=== PATIENT | male | born 1935 | race Caucasian/White ===

== ENCOUNTER 2020-06-06 09:47 | Outpatient (CLI) | payer MEDICARE, SELFPAY ==
--- NOTE | ~2020-06-06 | XR_ITS ---
XR chest 2V DATE: 06/06/2020 10:10 INDICATION: Fatigue TECHNIQUE: PA and lateral views COMPARISON: 09/16/2018 PA and lateral chest FINDINGS: Normal heart size. Aortic calcification. Mild to moderate hiatal hernia. No pulmonary infiltrate or consolidation, pleural effusion or pulmonary vascular congestion or pneumo thorax. Bilateral glenohumeral osteoarthritis. IMPRESSION: No active cardiopulmonary disease Reviewed, dictated and finalized at location A. 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
== END 2020-06-06 09:48 | disposition home or self-care (01) ==
PROVIDERS: PCP Internal Medicine; Visit Provider Internal Medicine
DX: R53.83 Other fatigue (principal); M19.012 Primary osteoarthritis, left shoulder; M19.011 Primary osteoarthritis, right shoulder
CPT/HCPCS: 71046

== ENCOUNTER 2020-07-14 10:48 | Outpatient (CLI) | payer MEDICARE, SELFPAY ==
--- NOTE | ~2020-07-14 | NM_ITS ---
EXAMINATION: NM lizzy stress w perfusion DATE: 07/14/2020 13:40 INDICATION: Presyncope. Fatigue. TECHNIQUE: Rest images were obtained following intravenous administration of 8.2 mCi Tc99m tetrofosmi n (Myoview). The patient was infused intravenously with Lexiscan (regadenoson). Then, 26.2 mCi Tc99m tetrofosmin (Myoview) was administered intravenously, and stress images were obtained. Data was recon structed into short axis and horizontal and vertical long axis SPECT images. Gated SPECT images were also obtained. COMPARISON: None. FINDINGS: There is no definite reversible or fixed perfusion abnormality to suggest ischemia or infar ction. There is no segmental wall motion abnormality. Left ventricular ejection fraction measures 6 8%. IMPRESSION: 1. No definite ischemia or infarct. 2. Normal left ventricular ejection fraction measuring 68%. Reviewed, dictated and finalized at location B. 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
--- NOTE | 2020-07-14 11:06 | EST_ITS ---
Patient Info Name: Naeem Pitt Age: 85 years : 1935 Gender: Male Ht: 70 in Wt: 200 lbs BSA: 2.14 m2 Exam Date: 07/14/2020 11:54 AM Exam Location: [facility] Stress Patient Status: Outpatient Admit Date: 07/14/2020 Staff Ordering Physician: John Sparks DO Attending Provider: John Sparks DO Exercise Technologist: Anila Coughlin RDCS Exercise Physician: Pito Varela DO Exam Type: CA stress lizzy w NM Study Info Indications R53.83 - Other fatigue A regadenoson stress test was performed. Summary 1. 1. Negative lexiscan stress test for ischemic ST changes by ECG criteria. 2. 2. Baseline hypertension. 3. 3. Nuclear scan to follow and will be reported separately. Please correlate with it. 4. 4. Patient informed of the above results. Protocol: Lexiscan Stress ECG Details Stage: REST Duration (min): 5 min : 52 sec HR (bpm): 70 SBP (mmHg): 176 DBP (mmHg): 91 Stage: REST Duration (min): 7 min : 13 sec HR (bpm): 70 SBP (mmHg): 176 DBP (mmHg): 91 Stage: STAGE 1 Duration (min): 1 min : 0 sec HR (bpm): 93 SBP (mmHg): 178 DBP (mmHg): 89 Stage: RECOVERY Duration (min): 1 min : 0 sec HR (bpm): 109 SBP (mmHg): 143 DBP (mmHg): 82 Stage: RECOVERY Duration (min): 2 min : 0 sec HR (bpm): 105 SBP (mmHg): 143 DBP (mmHg): 82 Stage: RECOVERY Duration (min): 3 min : 0 sec HR (bpm): 103 SBP (mmHg): 148 DBP (mmHg): 84 Stage: RECOVERY Duration (min): 4 min : 0 sec HR (bpm): 99 SBP (mmHg): 148 DBP (mmHg): 84 Stage: RECOVERY Duration (min): 5 min : 0 sec HR (bpm): 101 SBP (mmHg): 154 DBP (mmHg): 85 Stage: RECOVERY Duration (min): 6 min : 0 sec HR (bpm): 104 SBP (mmHg): 154 DBP (mmHg): 85 Stage: RECOVERY Duration (min): 7 min : 0 sec HR (bpm): 101 SBP (mmHg): 148 DBP (mmHg): 86 Stage: RECOVERY Duration (min): 8 min : 0 sec HR (bpm): 99 SBP (mmHg): 148 DBP (mmHg): 86 Stage: RECOVERY Duration (min): 9 min : 0 sec HR (bpm): 94 SBP (mmHg): 166 DBP (mmHg): 85 Stage: RECOVERY Duration (min): 9 min : 9 sec HR (bpm): 94 SBP (mmHg): 166 DBP (mmHg): 85 Rest HR: 70 bpm Peak HR: 109 bpm Rest Sys BP: 176 mmHg Peak Sys BP: 178 mmHg Max Pred HR: 137 bpm % Max Pred HR: 80 % Target HR: 116 bpm Max RPP: 19,402 bpm*mmHg Termination Reason: Completed protocol Cardiac Symptoms: Stomach discomfort, dizziness Total Time: 1 min : 0 sec Rest Paredes BP: 91 mmHg Peak Paredes BP: 89 mmHg Total Dose: 0.4 mg Resting ECG Sinus rhythm, early precordial R/S transition. Stress ECG No ST changes. Arrhythmias None. Report Signatures
== END 2020-07-14 10:49 | disposition home or self-care (01) ==
PROVIDERS: PCP Internal Medicine; Visit Provider Internal Medicine
DX: I25.10 Atherosclerotic heart disease of native coronary artery without angina pectoris (principal); R53.83 Other fatigue; E11.9 Type 2 diabetes mellitus without complications
CPT/HCPCS: 78452; 93017; A9502; J2785

== ENCOUNTER 2020-07-18 12:57 | Outpatient (CLI) | payer MEDICARE, SELFPAY ==
--- NOTE | ~2020-07-18 | XR_ITS ---
EXAMINATION: XR wrist RT min 3V DATE: 07/18/2020 13:16 INDICATION: Right wrist osteoarthritis and pain. TECHNIQUE: 4 views of right wrist were obtained. COMPARISON: None. FINDINGS: Bone alignment is normal. No fracture. There is severe osteoarthritis of radioscaphoid join t and lunate-capitate joint. 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 There is mild oste oarthritis of triscaphe joint and severe osteoarthritis of first carpometacarpal joint. There is mild osteoarthritis of first metacarpophalangeal joint and moderate osteoarthritis of second and third me tacarpophalangeal joints. 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 IMPRESSION: 1. Polyarticular osteoarthritis. Reviewed, dictated and finalized at location B. SAW FILER
== END 2020-07-18 12:58 | disposition home or self-care (01) ==
PROVIDERS: PCP Internal Medicine; Visit Provider Plastic Surgery
DX: M19.031 Primary osteoarthritis, right wrist (principal)
CPT/HCPCS: 73110

== ENCOUNTER 2020-08-07 09:28 | Outpatient (CLI) | payer MEDICARE, SELFPAY ==
[2020-08-07 10:26] LABS: Anion Gap 8 mmol/L (8-16); Blood Urea Nitrogen 24 mg/dL (9-20); Calcium 6.3 mg/dL (8.4-10.2); Carbon Dioxide 29 mmol/L (22-30); Chloride 103 mmol/L (98-107); Estimated Glomerular Filt Rate > 60; Glucose 117 mg/dL (75-110); Potassium 4.3 mmol/L (3.4-5.0); Sodium 140 mmol/L (137-145)
== END 2020-08-07 09:29 | disposition home or self-care (01) ==
PROVIDERS: Anesthesiology; PCP Internal Medicine; Visit Provider Plastic Surgery
DX: Z01.812 Encounter for preprocedural laboratory examination (principal); E11.9 Type 2 diabetes mellitus without complications
CPT/HCPCS: 36415; 80048

== ENCOUNTER → 2020-08-09 01:01 | Outpatient (CLI) | payer MEDICARE, SELFPAY ==
[2020-08-09 19:48] LABS: SARS-CoV-2 RNA PCR Negative
== END ==
PROVIDERS: PCP Internal Medicine; Visit Provider Plastic Surgery
DX: Z01.812 Encounter for preprocedural laboratory examination (principal); Z20.822 Contact with and (suspected) exposure to COVID-19
CPT/HCPCS: C9803; U0003; U0005

== ENCOUNTER 2020-08-13 00:58 | Day surgery (SDC) | payer MEDICARE, SELFPAY ==
[2020-08-06 10:23] VITALS: BMI 28.7
[2020-08-13 06:08] VITALS: BP 174/79; PULSE 83; RESP 18; TEMP 36.2; O2SAT 99
[2020-08-13] MEDS: LACTATED RINGERS 1,000 ML 30 ML IV CONT (06:25)
[2020-08-13 06:27] LABS: Glucose Point of Care 128 (65-105)
--- NOTE | 2020-08-13 07:05 | WPDANESEPPF ---
Anes - Initial Pre Proc Eval Procedure: Operation Date: 08/13/20 07:30 Proposed Procedures p Right Open Carpal Tunnel Release - Andriy Mooney MD Date/Time: 08/13/20 07:05 Surgeon: Andriy Mooney MD Pre Op Diagnosis: Carpal Tunnel Syndrome Patient Data Age: 85 Gender: M Height: 5 ft 10 in Weight: 91.7 kg Last Vital Signs Temp 97.2 F L 08/13/20 06:08 Pulse 83 08/13/20 06:08 Resp 18 08/13/20 06:08 BP 174/79 H 08/13/20 06:08 Pulse Ox 99 08/13/20 06:08 Allergies Allergy/AdvReac Type Severity Reaction Status Date / Time No Known Allergies Allergy Verified 08/13/20 06:30 Home Medications Medication Instructions Recorded Confirmed Type vitamin E 200 unit capsule 400 unit PO DAILY 06/07/19 08/13/20 History blood sugar diagnostic #100 each 07/17/19 08/13/20 Rx lancets 33 gauge #100 each 01/03/20 08/13/20 Rx aspirin 81 mg PO BID 08/06/20 08/13/20 History atenolol 50 mg QAM 08/06/20 08/13/20 History atorvastatin 20 mg QAM 08/06/20 08/13/20 History calcium carbonate 500 mg PO QAM 08/06/20 08/13/20 History cholecalciferol (vitamin D3) 50 mcg PO QAM 08/06/20 08/13/20 History cyanocobalamin (vitamin B-12) 1,000 mcg PO QAM 08/06/20 08/13/20 History finasteride 5 mg QAM 08/06/20 08/13/20 History hydrochlorothiazide 12.5 mg PO QAM 08/06/20 08/13/20 History losartan 100 mg QAM 08/06/20 08/13/20 History metformin 500 mg PO QAM 08/06/20 08/13/20 History omeprazole 20 mg PO QAM 08/06/20 08/13/20 History Laboratory Tests 08/13/20 06:23 POC Capillary Glucose 128 mg/dl H mg/dl (65-105) Patient hx anesthesia problems: none Family hx anesthesia problems: none PMFSH Past Medical History Medical History Abnormal urine Acute cerebrovascular accident Bilateral kidney stones Halitosis Head injury due to trauma Hypocalcemia Impacted cerumen, bilateral Other fatigue Skin cancer Social History Social History Smoking status: Never smoker Second hand tobacco smoke exposure: No Alcohol intake: never Substance use: never Substance use type: does not use Living arrangements: with family Spiritual care concerns: No Anes - Eval Final PreProcedure Day of Procedure 08/13/20 07:05 Patient weight: overweight Heart: regular rate and rhythm Lungs: clear to auscultation Airway: Mallampati scale class III Neurological: alert and oriented Last oral intake: >/= 8 hours ASA classification: III Emergent: no Anesthetic plan: proceed Anesthesia type and monitoring: general GIVS and standard monitoring Informed Consent: The patient's anesthetic plan and its attendant risks and benefits were discussed with the patient/family/POA. Questions were solicited and answers provided to the satisfaction of the patient/family/POA.
--- NOTE | 2020-08-13 07:15 | WPDHPUPDATE1 ---
History and Physical Update Update Date/Time: 08/13/20 07:15 History and Physical has been reviewed, including an updated exam of the patient. There are NO changes in the patient's condition. Risks, benefits, and alternatives have been discussed and questions answered. Patient agrees to proceed with procedure.
--- NOTE | 2020-08-13 07:34 | PM.OP ---
Procedure Note - Brief Procedure Note - Brief Date of procedure: 08/13/20 Pre-op diagnosis: Carpal Tunnel Syndrome Post-op diagnosis: same Procedure performed: R OCTR Anesthesia: MAC Surgeon: Andriy Mooney MD Estimated blood loss (mL): 1 Tourniquet time (min): 6 Drains: No Packing: No Pathology: none sent Complications: No immediate complications Condition: stable Disposition: same day
[2020-08-13] MEDS: LIDO 1%/EPINEPHRINE 1:100,000 50 ML VIAL INFILTRATE (07:54)
[2020-08-13 08:00] VITALS: BP 144/68; PULSE 77; RESP 14; O2SAT 100
[2020-08-13 08:04] LABS: Glucose Point of Care 117 (65-105)
--- NOTE | 2020-08-13 08:09 | P.OP_ITS ---
Procedure Note - Detailed Date of procedure: 08/13/20 Pre-op diagnosis: Carpal Tunnel Syndrome Post-op diagnosis: same Procedure performed: Right open carpal tunnel release Description of procedure: The carpal tunnel at the right wrist was marked as the patient waited in the holding area. He was taken to the operating room and placed supine on the operating table. A time-out was held and confirmed. He was given IV sedation and the extremity was prepped and draped in the usual fashion. The marking was reconfirmed and the site locally infiltrated with 1% lidocaine with epinephrine. The tourniquet was inflated to 250 mmHg. The incis ion was made as marked and dissection was carried bluntly through the subcutaneous tissue to the palmar fascia. This and the carpal ligament were incised with a 15. Bard-Aleksandr blade. The Ragnell was retractor was inserted and under 3 point retraction the ligament was divided distally and proximally with scissors. No unusual anatomy was noted. The skin wound was closed with interrupted 4-0 nylon suture. The usual bandage was applied. The tourniquet was released at 6 minutes and the patient was transported to outpatient recovery in stable condition. Anesthesia: MAC Surgeon: Andriy Mooney MD Estimated blood loss (mL): 1 Tourniquet time (min): 6 Drains: No Packing: No Pathology: none sent Complications: No immediate complications Condition: stable Disposition: same day
[2020-08-13 08:30] VITALS: BP 141/64; PULSE 77; RESP 16; O2SAT 100
[2020-08-13 08:56] VITALS: BP 156/71; PULSE 68; RESP 14; O2SAT 100
== END 2020-08-13 09:05 | disposition home or self-care (01) ==
PROVIDERS: PCP Internal Medicine; Visit Provider Plastic Surgery
PROC: (CPT 64721; principal; 2020-08-13 07:30)
DX: G56.01 Carpal tunnel syndrome, right upper limb (principal); I10 Essential (primary) hypertension; E11.9 Type 2 diabetes mellitus without complications; Z79.82 Long term (current) use of aspirin; Z79.84 Long term (current) use of oral hypoglycemic drugs
CPT/HCPCS: 64721; 36415; 80048; 82948; A9270; C9803; J2405; J2704; J7120; U0003; U0005

== ENCOUNTER → 2021-01-20 08:21 | Outpatient (CLI) | payer MEDICARE, SELFPAY ==
[2021-01-20 20:36] LABS: SARS-CoV-2 RNA PCR Negative
== END ==
PROVIDERS: PCP Internal Medicine; Visit Provider Internal Medicine
DX: Z20.822 Contact with and (suspected) exposure to COVID-19 (principal); R09.89 Other specified symptoms and signs involving the circulatory and respiratory systems
CPT/HCPCS: C9803; U0003; U0005

== ENCOUNTER 2022-02-05 10:24 | Emergency (ER) | payer MEDICARE, SELFPAY ==
--- NOTE | ~2022-02-05 | XR_ITS ---
EXAMINATION: [id number] DATE: 02/05/2022 10:47 INDICATION: Rib pain. Fall. TECHNIQUE: A frontal view of the chest and 2 views on 3 radiographs of the left ribs were obtained. COMPARISON: Chest 2 views 06/06/2020 FINDINGS: The chest demonstrates clear lungs without pneumonia, pleural effusion, or pneumothorax. Th e heart size is normal. There are multiple old healed left rib fractures. There are acute fractures o f left eighth-10th ribs. IMPRESSION: 1. Acute fractures of left eighth-10th ribs. Reviewed, dictated and finalized at location A.
--- NOTE | 2022-02-05 10:29 | ED.FALL ---
HPI - Fall General Chief Complaint: Chest Pain Stated Complaint: left side rib, fall Time Seen by Provider: 02/05/22 10:29 Source: patient Mode of arrival: ambulatory Limitations: no limitations History of Present Illness HPI Narrative: Mr. Pitt is an 86 year old male patient presenting to the clinic today with c/o left rib pain after falling last night. He reports his waredresser went down a hill into the so and got caught in a black bear josé. He attempted to get it out and fell onto the left posterior ribs. Has bruising and abrasion to the posterior left ribs. Has increase in pain when taking a deep breath. He denies any anterior chest pain or shortness of breath. Related Data Home Medications Medication Instructions Recorded Confirmed vitamin E 200 unit capsule 400 unit PO DAILY 06/07/19 02/05/22 aspirin 81 mg tablet,delayed 81 mg PO BID 08/06/20 02/05/22 release cholecalciferol (vitamin D3) 50 50 mcg PO QAM 08/06/20 02/05/22 mcg (2,000 unit) capsule cyanocobalamin (vitamin B-12) 1,000 mcg PO QAM 08/06/20 02/05/22 1,000 mcg capsule atenolol 50 mg tablet 50 mg PO QAM 02/05/22 02/05/22 Allergies Allergy/AdvReac Type Severity Reaction Status Date / Time No Known Allergies Allergy Verified 02/05/22 10:34 Review of Systems Review of Systems: Pertinent positives per HPI. Patient denies any fever, chills, rash, headache, visual changes, dizziness, cough, runny nose, sore throat, shortness of breath, chest pain, palpitations, nausea, vomiting, diarrhea, constipation, abdominal pain, or any urinary issues. [facility] Past Medical History Medical History Abnormal urine Acute cerebrovascular accident Bilateral kidney stones Halitosis Head injury due to trauma Hypocalcemia Impacted cerumen, bilateral Other fatigue Skin cancer Social History Social History Smoking status: Former smoker Second hand tobacco smoke exposure: No Alcohol intake: never Substance use: never Substance use type: does not use Spiritual care concerns: No Comments At the time of my signature, I reviewed and agree with the nursing past medical, surgical, social, and family history. There is no relevant family history pertinent to the patient complaint. Exam Narrative: General: Well-developed, well nourished, in no apparent distress Head: Normocephalic, atraumatic Eyes: Pupils equally round and reactive to light bilaterally, EOM intact, sclera and conjunctive clear, no discharge, lids normal Ears: TMs intact and clear, ear canals clear, no drainage, grossly hearing normal. Nose: Nares patent, no discharge, no inflammation, no sinus tenderness. Mouth: Oropharynx without lesions or masses, good dentition, MMM. Neck: Supple, trachea midline, no enlargement of anterior or posterior cervical nodes, no thyroid masses or goiter palpable. Cardio: Regular rate and rhythm, s1 and s2 normal, no murmur appreciated. Resp: Clear to auscultation bilaterally anteriorly and posteriorly, no rhonchi, rales, wheezing or rubs Course Course Emergency Course: Portions of this record may have been created with voice recognition software. Level of Care: Express Care Visit Vital Signs Vital signs: Vital signs reviewed MDM - Fall MDM Narrative Medical decision making narrative: At the time of visit patient is resting comfortably on the exam table. X-ray was performed and patient has fractures to the eighth ninth and 10th rib on the left side. Toradol 30 mg IM given in the clinic for pain and Boostrix was given due to the scratches and abrasions from the blackberry bushes. Supportive measures were discussed with the patient he voiced understanding of discharge instructions and agrees to treatment plan. Differential Diagnosis Differential diagnosis: Likely other (Rib fracture, rib contusion, abrasions, superficial
[2022-02-05 10:36] VITALS: BP 152/69; PULSE 81; RESP 16; TEMP 36.6; O2SAT 99
[2022-02-05] MEDS: TETANUS,DIPHTHERIA,AC PERTUSSIS ADULT (0.5 ML) BOOSTRIX IM (11:10)
[2022-02-05] MEDS: KETOROLAC 30 MG/ML VIAL (*BKC) IM (11:17)
== END 2022-02-05 11:10 | disposition home or self-care (01) ==
PROVIDERS: Emergency Provider Nurse Practitioner Family; PCP Internal Medicine
DX: S22.42XA Multiple fractures of ribs, left side, initial encounter for closed fracture (principal); W19.XXXA Unspecified fall, initial encounter; Z23 Encounter for immunization; S20.412A Abrasion of left back wall of thorax, initial encounter; Z87.891 Personal history of nicotine dependence; Z86.73 Personal history of transient ischemic attack (TIA), and cerebral infarction without residual deficits; Z85.828 Personal history of other malignant neoplasm of skin; Z79.82 Long term (current) use of aspirin
CPT/HCPCS: 71101; 90471; 90715; 96372; 99213; G0463; J1885

== ENCOUNTER 2023-03-15 03:59 | Day surgery (SDC) | payer MEDICARE, SELFPAY ==
[2023-03-04 14:59] VITALS: BMI 26.5
[2023-03-15 08:34] VITALS: BP 169/89; PULSE 77; RESP 18; TEMP 35.8; O2SAT 96; BMI 27.4
[2023-03-15] MEDS: LACTATED RINGERS 1,000 ML 150 ML IV CONT (09:05)
[2023-03-15 09:06] LABS: Glucose Point of Care 111 mg/dl (65-105)
--- NOTE | 2023-03-15 09:18 | PM.HPGS ---
History of Present Illness History of Present Illness Consent: Risks, benefits, and alternatives have been discussed and questions answered. Patient agrees to proceed with procedure. Chief complaint: hx colon polyps Narrative: Naeem Pitt is a 88 year old male Presents for screening colonoscopy. Patient's current weight appetite and bowel movements are normal. Patient denies abdominal pain. He has had no bleeding. Family history is significant that his father had colon cancer. Patient reports he has had multiple colonoscopies and typically polyps have been identified every time for the last 20 years. Review of Systems Review of Systems: Review of systems noncontributory. [facility] Past Medical History Medical History (Updated 11/01/22 @ 10:05 by Tono Campbell PA-C) Abnormal urine Acute cerebrovascular accident Bilateral kidney stones Halitosis Head injury due to trauma History of adenomatous polyp of colon Hypocalcemia Impacted cerumen, bilateral Other fatigue Ribs, multiple fractures Skin cancer Social History Social History Smoking status: Never smoker Second hand tobacco smoke exposure: No Alcohol intake: current Substance use: never Substance use type: does not use Lack of Transportation: No Lack of Food: Never True Current Housing: I Have Housing Concerned About Future Housing: No Difficulty Paying Gas/Electric Bills: No Difficulty Paying for Meds: No Currently Unemployed: No Education: High School Diploma/GED Difficulty w/ Childcare or Family Care: No Living arrangements: with family Spiritual care concerns: No Meds Home Medications and Allergies Home Medications Medication Instructions Recorded Confirmed Type aspirin 81 mg tablet,delayed 81 mg PO BID 08/06/20 03/15/23 History release cholecalciferol (vitamin D3) 50 50 mcg PO QAM 08/06/20 03/15/23 History mcg (2,000 unit) capsule finasteride 5 mg tablet 5 mg PO QAM #90 tabs 11/16/21 03/15/23 Rx blood sugar diagnostic See Rx Instructions .Route 04/06/22 03/15/23 Rx .COMPLEX #100 strips blood sugar diagnostic (OneTouch #100 ea 09/03/22 03/15/23 Rx Ultra Test strips) losartan 100 mg tablet 100 mg PO QAM #90 tabs 11/29/22 03/15/23 Rx hydrochlorothiazide 12.5 mg tablet See Rx Instructions .Route 12/05/22 03/15/23 Rx .COMPLEX #90 tabs lancets 33 gauge (OneTouch Delica See Rx Instructions .Route 12/11/22 03/15/23 Rx Plus Lancet) .COMPLEX #100 ea atorvastatin 20 mg tablet See Rx Instructions .Route 01/10/23 03/15/23 Rx .COMPLEX #90 tabs atenolol 50 mg tablet 50 mg PO QAM #90 tabs 01/17/23 03/15/23 Rx omeprazole 20 mg capsule,delayed 20 mg PO QAM #90 caps 01/24/23 03/15/23 Rx release metformin 500 mg tablet 500 mg PO DAILY #90 tabs 02/28/23 03/15/23 Rx mecobalamin (vitamin B12) 500 mcg 500 mcg PO DAILY 03/04/23 03/15/23 History chewable tablet vitamin E 180 mg PO DAILY 03/04/23 03/15/23 History Allergies Allergy/AdvReac Type Severity Reaction Status Date / Time No Known Allergies Allergy Verified 03/15/23 08:44 Vital Signs Vital Signs - 24 hr 03/15/23 08:34 Temperature 96.5 F L Pulse Rate 77 Respiratory Rate 18 Blood Pressure 169/89 H Pulse Oximetry 96 Oxygen Delivery Room Air Exam Narrative: Physical exam reveals patient to be alert. Vital signs stable. HEENT exam is unremarkable. Patient is anicteric. Lungs are clear to auscultation and percussion. Heart is without murmur or extra sounds. Abdomen bowel sounds are present soft nontender with no organomegaly. Digital external rectal exam normal. Assessment and Plan Assessment and plan (1) History of adenomatous polyp of colon: Code(s): Z86.010 - Personal history of colonic polyps Status: Acute Assessment and Plan: Patient has a personal history of adenomatous colon polyps on multiple previous colonoscopies.
--- NOTE | 2023-03-15 09:36 | WPDANESEPPF ---
Anes - Initial Pre Proc Eval Procedure: Operation Date: 03/15/23 10:00 Proposed Procedures p Colonoscopy - Je Smith MD Date/Time: 03/15/23 09:36 Surgeon: Je Smith MD Pre Op Diagnosis: hx colon polyps Patient Data Age: 88 Gender: M Height: 1.78 m Weight: 86.7 kg Last Vital Signs Temp 96.5 F L 03/15/23 08:34 Pulse 77 03/15/23 08:34 Resp 18 03/15/23 08:34 BP 169/89 H 03/15/23 08:34 Pulse Ox 96 03/15/23 08:34 O2 Del Method Room Air 03/15/23 08:34 Allergies Allergy/AdvReac Type Severity Reaction Status Date / Time No Known Allergies Allergy Verified 03/15/23 08:44 Home Medications Medication Instructions Recorded Confirmed Type aspirin 81 mg tablet,delayed 81 mg PO BID 08/06/20 03/15/23 History release cholecalciferol (vitamin D3) 50 50 mcg PO QAM 08/06/20 03/15/23 History mcg (2,000 unit) capsule finasteride 5 mg tablet 5 mg PO QAM #90 tabs 11/16/21 03/15/23 Rx blood sugar diagnostic See Rx Instructions .Route 04/06/22 03/15/23 Rx .COMPLEX #100 strips blood sugar diagnostic (OneTouch #100 ea 09/03/22 03/15/23 Rx Ultra Test strips) losartan 100 mg tablet 100 mg PO QAM #90 tabs 11/29/22 03/15/23 Rx hydrochlorothiazide 12.5 mg tablet See Rx Instructions .Route 12/05/22 03/15/23 Rx .COMPLEX #90 tabs lancets 33 gauge (OneTouch Delica See Rx Instructions .Route 12/11/22 03/15/23 Rx Plus Lancet) .COMPLEX #100 ea atorvastatin 20 mg tablet See Rx Instructions .Route 01/10/23 03/15/23 Rx .COMPLEX #90 tabs atenolol 50 mg tablet 50 mg PO QAM #90 tabs 01/17/23 03/15/23 Rx omeprazole 20 mg capsule,delayed 20 mg PO QAM #90 caps 01/24/23 03/15/23 Rx release metformin 500 mg tablet 500 mg PO DAILY #90 tabs 02/28/23 03/15/23 Rx mecobalamin (vitamin B12) 500 mcg 500 mcg PO DAILY 03/04/23 03/15/23 History chewable tablet vitamin E 180 mg PO DAILY 03/04/23 03/15/23 History Laboratory Tests 03/15/23 09:03 POC Capillary Glucose 111 H mg/dl (65-105) Patient hx anesthesia problems: none Family hx anesthesia problems: none Results Review: All pre-operative results and documents have been reviewed as part of the pre-operative evaluation. [facility] Past Medical History Medical History (Updated 11/01/22 @ 10:05 by Tono Campbell PA-C) Abnormal urine Acute cerebrovascular accident Bilateral kidney stones Halitosis Head injury due to trauma History of adenomatous polyp of colon Hypocalcemia Impacted cerumen, bilateral Other fatigue Ribs, multiple fractures Skin cancer Social History Social History Smoking status: Never smoker Second hand tobacco smoke exposure: No Alcohol intake: current Substance use: never Substance use type: does not use Lack of Transportation: No Lack of Food: Never True Current Housing: I Have Housing Concerned About Future Housing: No Difficulty Paying Gas/Electric Bills: No Difficulty Paying for Meds: No Currently Unemployed: No Education: High School Diploma/GED Difficulty w/ Childcare or Family Care: No Living arrangements: with family Spiritual care concerns: No Anes - Eval Final PreProcedure Day of Procedure 03/15/23 09:36 Patient weight: normal Heart: regular rate and rhythm Lungs: clear to auscultation Airway: Mallampati scale class II Neurological: alert and oriented Last oral intake: >/= 8 hours ASA classification: III Emergent: no Anesthetic plan: proceed Anesthesia type and monitoring: general GIVS and standard monitoring Results Review: All pre-operative results and documents have been reviewed as part of the pre-operative evaluation. Informed Consent: The patient's anesthetic plan and its attendant risks and benefits were discussed with the patient/family/POA. Questions were solicited and answers provided to the satisfaction of the patient/family/POA.
[2023-03-15] MEDS: SIMETHICONE ORAL SUSPENSION 20 MG/0.3 ML 30 ML BOTTLE 0.6 ML IRRIGATION (10:06)
[2023-03-15 10:49] VITALS: BP 122/60; PULSE 65; RESP 16; O2SAT 97
[2023-03-15 10:59] VITALS: BP 130/67; PULSE 63; RESP 16; O2SAT 96
[2023-03-15 11:09] VITALS: BP 152/99; PULSE 62; RESP 15; O2SAT 96
--- NOTE | 2023-03-15 11:32 | SUR.PHASEII ---
Discharge delayed due to patient being slow to wake up. Patient wanted to wait to talk to Dr. Smith a second time.
== END 2023-03-15 11:41 | disposition home or self-care (01) ==
PROVIDERS: PCP Physician Assistant; Visit Provider Internal Medicine Gastroenterology
PROC: 0DJD8ZZ Inspection of Lower Intestinal Tract, Via Natural or Artificial Opening Endoscopic (ICD-10-PCS; CPT 45378; principal; 2023-03-15 10:00)
DX: Z12.11 Encounter for screening for malignant neoplasm of colon (principal); D12.2 Benign neoplasm of ascending colon; Z80.0 Family history of malignant neoplasm of digestive organs; Z79.82 Long term (current) use of aspirin; Z79.84 Long term (current) use of oral hypoglycemic drugs; Z86.73 Personal history of transient ischemic attack (TIA), and cerebral infarction without residual deficits
CPT/HCPCS: 45385; 82948; 88305; J2704; J7120

== ENCOUNTER 2023-06-01 08:15 | Outpatient (RCR) | payer MEDICARE, SELFPAY ==
--- NOTE | 2023-05-06 13:36 | OTOPEVAL1 ---
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 Has been having pain that has been getting bad enough that he sought treatment. He has been getting a cortisone injection 1 time a year for the last 4 years. He recently had an injection 2 days ago. Reported Pain Level Pain Score 2: Self Report Assessment OT Clinical Summary Patient referred to OT with right wrist pain and dx of OA 1st CMC joint. Patient presents with severe wrist stiffness actively and passively, overall gross weakness with alum mixer and pinching, as well as pain with use. Skilled OT indicated for HEP instruction, modalities, therapeutic activities and exercise, as well as education on joint protection and adaptive equipment to facilitate optimal functional use of the right UE. Plan of Care Interventions Therapeutic Exercise,Manual Therapy,Therapeutic Activities,Hot Pack/Cold Pack,Ultrasound,Paraffin OT Services Indicated Yes Treatment Frequency and 1x/week for 4 weeks Duration These treatments will address the objective and functional deficits as defined above. The patient will be advanced safely and appropriately in order for the patient to progress towards his/her prior level of function. Additional exercises will be introduced and as well as a comprehensive home exercise program upon discharge, if needed, ?to ensure carryover of functional gains achieved in the clinic. This treatment plan has been reviewed and agreement upon by the patient.
--- NOTE | 2023-05-06 13:37 | OPREHPOC ---
Outpatient Therapy Plan of Care This is a Multidisciplinary Plan of Care that may contain components documented by all disciplines (PT, OT, and ST.) OT Problem 1 OT Problem #1 Knowledge Deficit OT Goal 1 Goal 1. Patient to be independent with instructed materials. Target Visit 5 OT Problem 2 OT Problem #2 Pain OT Goal 1 Goal 1. Patient to report reduced right wrist pain with use, reporting 2/10 pain or less with ADLs. Target Visit 5 OT Problem 3 OT Problem #3 Impaired Strength OT Goal 1 Goal 1. 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 Target Visit 5 OT Problem 4 OT Problem #4 Impaired Flexibility OT Goal 1 Goal 1. Increase active ROM of the right wrist: - flexion to 20 deg. - extension to 30 deg. - RD to 5 deg. - UD to 15 deg. Target Visit 5
--- NOTE | 2023-06-01 09:05 | OTOPDC ---
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 He reports that therapy has helped him improved flexibility of the thumb. He reports he hasn't taken any Tylenol or used Voltaren for 2-3 weeks. He states he is now able to buckle his seat belt without pain. Reported Pain Level Pain Score 1: Self Report Additional Pain Score Comments Patient reports pain does get down to 0/10 at times. At worst his pain has been in the last week: 3/10. At the start of care his pain was regularly getting up to 8/10. Assessment OT Clinical Summary Patient referred to OT with right wrist pain and dx of OA 1st CMC joint. OT has focused on utilizing thermal modalities, manual therapy, and light strengthening. He has made excellent progress with improved flexibility, improved strength, and reduced pain with ADLs. He is currently independent with HEP and in agreement with discharge. OT Services Indicated No, D/C
== END 2023-06-01 10:34 | disposition home or self-care (01) ==
LOC: ANHOT 08:15
PROVIDERS: PCP Physician Assistant; Visit Provider Plastic Surgery
DX: M18.11 Unilateral primary osteoarthritis of first carpometacarpal joint, right hand (principal)
CPT/HCPCS: 97018; 97110; 97140; 97165

== ENCOUNTER 2023-10-24 03:00 | Day surgery (SDC) | payer MEDICARE, SELFPAY ==
[2023-10-07 15:18] VITALS: BMI 26.2
[2023-10-24 11:33] LABS: Glucose Point of Care 113 mg/dl (65-105)
[2023-10-24 11:46] VITALS: BP 175/65; PULSE 63; RESP 18; TEMP 36.2; O2SAT 100
[2023-10-24] MEDS: LACTATED RINGERS 1,000 ML 150 ML IV CONT (12:05)
--- NOTE | 2023-10-24 12:39 | WPDANESEPPF ---
Anes - Initial Pre Proc Eval Procedure: Operation Date: 10/24/23 12:30 Proposed Procedures p Colonoscopy - Chadd Cárdenas MD Date/Time: 10/24/23 12:39 Surgeon: Chadd Cárdenas MD Pre Op Diagnosis: hx of colon polys Patient Data Age: 88 Gender: M Height: 1.78 m Weight: 85.5 kg Last Vital Signs Temp 97.1 F L 10/24/23 11:46 Pulse 63 10/24/23 11:46 Resp 18 10/24/23 11:46 BP 175/65 H 10/24/23 11:46 Pulse Ox 100 10/24/23 11:46 O2 Del Method Room Air 10/24/23 11:46 Allergies Allergy/AdvReac Type Severity Reaction Status Date / Time No Known Allergies Allergy Verified 10/24/23 11:41 Home Medications Medication Instructions Recorded Confirmed Type aspirin 81 mg tablet,delayed 81 mg PO BID 08/06/20 10/20/23 History release cholecalciferol (vitamin D3) 50 50 mcg PO QAM 08/06/20 10/20/23 History mcg (2,000 unit) capsule finasteride 5 mg tablet 5 mg PO QAM #90 tabs 11/16/21 10/20/23 Rx blood sugar diagnostic See Rx Instructions .Route 04/06/22 10/20/23 Rx .COMPLEX #100 strips mecobalamin (vitamin B12) 500 mcg 500 mcg PO DAILY 03/04/23 10/20/23 History chewable tablet vitamin E 180 mg PO DAILY 03/04/23 10/20/23 History blood sugar diagnostic (OneTouch #100 strips 03/23/23 10/20/23 Rx Ultra Test strips) lancets 33 gauge (OneTouch Delica #100 ea 04/05/23 10/20/23 Rx Plus Lancet) losartan 100 mg tablet 100 mg PO QAM #90 tabs 05/07/23 10/20/23 Rx hydrochlorothiazide 12.5 mg tablet See Rx Instructions .Route 06/11/23 10/20/23 Rx .COMPLEX #90 tabs atorvastatin 20 mg tablet See Rx Instructions .Route 07/10/23 10/20/23 Rx .COMPLEX #90 tabs atenolol 50 mg tablet 50 mg PO QAM #90 tabs 07/17/23 10/24/23 Rx omeprazole 20 mg capsule,delayed 20 mg PO QAM #90 caps 07/24/23 10/20/23 Rx release metformin 500 mg tablet 500 mg PO DAILY #90 tabs 08/29/23 10/20/23 Rx Laboratory Tests 10/24/23 11:31 POC Capillary Glucose 113 H mg/dl (65-105) Patient hx anesthesia problems: none Family hx anesthesia problems: none Results Review: All pre-operative results and documents have been reviewed as part of the pre-operative evaluation. [facility], [facility] Past Medical History Medical History Abnormal urine Acute cerebrovascular accident Bilateral kidney stones Halitosis Head injury due to trauma History of adenomatous polyp of colon Hypocalcemia Impacted cerumen, bilateral Other fatigue Ribs, multiple fractures Skin cancer Social History Social History Smoking status: Never smoker Second hand tobacco smoke exposure: No Alcohol intake: never Substance use: never Substance use type: does not use Lack of Transportation: No Lack of Food: Never True Current Housing: I Have Housing Concerned About Future Housing: No Difficulty Paying Gas/Electric Bills: No Difficulty Paying for Meds: No Currently Unemployed: No Education: High School Diploma/GED Difficulty w/ Childcare or Family Care: No Living arrangements: with family Spiritual care concerns: No Anes - Eval Final PreProcedure Day of Procedure 10/24/23 12:39 Patient weight: normal Heart: regular rate and rhythm Lungs: clear to auscultation Airway: Mallampati scale Neurological: alert and oriented Last oral intake: >/= 8 hours Emergent: no Anesthetic plan: proceed Anesthesia type and monitoring: general GIVS and standard monitoring Results Review: All pre-operative results and documents have been reviewed as part of the pre-operative evaluation. Informed Consent: The patient's anesthetic plan and its attendant risks and benefits were discussed with the patient/family/POA. Questions were solicited and answers provided to the satisfaction of the patient/family/POA.
--- NOTE | 2023-10-24 13:02 | PM.HPGS ---
History of Present Illness History of Present Illness Consent: Risks, benefits, and alternatives have been discussed and questions answered. Patient agrees to proceed with procedure. Chief complaint: hx of colon polys Narrative: Naeem Pitt is a 88 year old male here for colonoscopy, had several TA polyps removed 02/2023 Review of Systems Review of Systems: All systems reviewed & are unremarkable except as noted in HPI and below PMFSH Past Medical History Medical History (Updated 10/24/23 @ 13:03 by Chadd Cárdenas MD) Abnormal urine Acute cerebrovascular accident Adenomatous colon polyp Bilateral kidney stones Halitosis Head injury due to trauma History of adenomatous polyp of colon Hypocalcemia Impacted cerumen, bilateral Other fatigue Ribs, multiple fractures Skin cancer Social History Social History Smoking status: Never smoker Second hand tobacco smoke exposure: No Alcohol intake: never Substance use: never Substance use type: does not use Lack of Transportation: No Lack of Food: Never True Current Housing: I Have Housing Concerned About Future Housing: No Difficulty Paying Gas/Electric Bills: No Difficulty Paying for Meds: No Currently Unemployed: No Education: High School Diploma/GED Difficulty w/ Childcare or Family Care: No Living arrangements: with family Spiritual care concerns: No Meds Home Medications and Allergies Home Medications Medication Instructions Recorded Confirmed Type aspirin 81 mg tablet,delayed 81 mg PO BID 08/06/20 10/20/23 History release cholecalciferol (vitamin D3) 50 50 mcg PO QAM 08/06/20 10/20/23 History mcg (2,000 unit) capsule finasteride 5 mg tablet 5 mg PO QAM #90 tabs 11/16/21 10/20/23 Rx blood sugar diagnostic See Rx Instructions .Route 04/06/22 10/20/23 Rx .COMPLEX #100 strips mecobalamin (vitamin B12) 500 mcg 500 mcg PO DAILY 03/04/23 10/20/23 History chewable tablet vitamin E 180 mg PO DAILY 03/04/23 10/20/23 History blood sugar diagnostic (OneTouch #100 strips 03/23/23 10/20/23 Rx Ultra Test strips) lancets 33 gauge (OneTouch Delica #100 ea 04/05/23 10/20/23 Rx Plus Lancet) losartan 100 mg tablet 100 mg PO QAM #90 tabs 05/07/23 10/20/23 Rx hydrochlorothiazide 12.5 mg tablet See Rx Instructions .Route 06/11/23 10/20/23 Rx .COMPLEX #90 tabs atorvastatin 20 mg tablet See Rx Instructions .Route 07/10/23 10/20/23 Rx .COMPLEX #90 tabs atenolol 50 mg tablet 50 mg PO QAM #90 tabs 07/17/23 10/24/23 Rx omeprazole 20 mg capsule,delayed 20 mg PO QAM #90 caps 07/24/23 10/20/23 Rx release metformin 500 mg tablet 500 mg PO DAILY #90 tabs 08/29/23 10/20/23 Rx Allergies Allergy/AdvReac Type Severity Reaction Status Date / Time No Known Allergies Allergy Verified 10/24/23 11:41 Vital Signs Vital Signs - 24 hr 10/24/23 11:46 Temperature 97.1 F L Pulse Rate 63 Respiratory Rate 18 Blood Pressure 175/65 H Pulse Oximetry 100 Oxygen Delivery Room Air Exam Const: General: comfortable and no acute distress HENMT: Face/Nose/Sinus: Normal nares present Eyes: General: appearance normal, both eyes and all related structures Neck: Neck: no JVD Resp: Auscultation: clear to auscultation bilaterally Cardio: Rate: regular rate Rhythm: regular rhythm GI: Inspection: non-distended GI Palp: Yes Soft to palpation Skin: General skin exam: normal color Neuro: General: gait normal Speech: normal speech Extrem: General: normal to inspection Psych: Mental Status: mental status grossly normal Assessment and Plan Assessment and plan (1) Adenomatous colon polyp: Code(s): D12.6 - Benign neoplasm of colon, unspecified Status: Acute Assessment and Plan: colonoscopy
[2023-10-24 13:22] VITALS: BP 110/55; PULSE 63; RESP 18; O2SAT 98
[2023-10-24 13:32] VITALS: BP 121/69; PULSE 60; RESP 17; O2SAT 97
[2023-10-24 13:42] VITALS: BP 160/71; PULSE 61; RESP 15; O2SAT 98
== END 2023-10-24 13:55 | disposition home or self-care (01) ==
PROVIDERS: PCP Physician Assistant; Visit Provider Internal Medicine Gastroenterology
PROC: 0DJD8ZZ Inspection of Lower Intestinal Tract, Via Natural or Artificial Opening Endoscopic (ICD-10-PCS; CPT 45378; principal; 2023-10-24 12:30)
DX: Z12.11 Encounter for screening for malignant neoplasm of colon (principal); D12.2 Benign neoplasm of ascending colon; D12.4 Benign neoplasm of descending colon; K64.8 Other hemorrhoids; E83.51 Hypocalcemia; Z79.82 Long term (current) use of aspirin; Z79.84 Long term (current) use of oral hypoglycemic drugs; Z86.79 Personal history of other diseases of the circulatory system; Z85.828 Personal history of other malignant neoplasm of skin
CPT/HCPCS: 45385; 82948; 88305; J2704; J7120

== ENCOUNTER 2023-11-08 10:12 | Emergency (ER) | payer MEDICARE, SELFPAY ==
--- NOTE | ~2023-11-08 | CT_ITS ---
EXAMINATION: CT abdomen pelvis wo con DATE: 11/08/2023 13:06 INDICATION: Left flank pain. TECHNIQUE: Computed tomography (CT) of the abdomen and pelvis was performed without intravenous contr ast. Automated exposure control and iterative reconstruction technique were employed. The dose-length product was 546.13 mGy-cm. COMPARISON: CT abdomen and pelvis 02/17/2018 FINDINGS: The visualized portions of the lung bases demonstrate mild atelectasis. No pleural effusion . The heart size is normal. No pericardial effusion. There are coronary artery calcifications. There is a moderate-sized sliding hiatal hernia. There is a 5 mm cyst in the liver. There are gallstones in the gallbladder, which is normal in size. The spleen, pancreas, adrenal glands, and kidneys are norm al. There are three bladder calcifications measuring up to 4 mm. There is a diverticulum of the bladd er. The prostate is moderately enlarged. There is prominent fat in the inguinal canals that may be he rnias. There are bilateral inguinal hernias containing fat. There are no pathologically enlarged lymp h nodes. There is no free intraperitoneal fluid. There is lumbar dextroscoliosis and severe spondylos is. IMPRESSION: 1. Moderate-sized sliding hiatal hernia. 2. Small stones versus wall calcifications in the bladder. 3. Bilateral inguinal hernias containing fat. Reviewed, dictated and finalized at location A.
[2023-11-08 10:13] VITALS: BP 167/90; PULSE 74; RESP 18; TEMP 36.7; O2SAT 100
[2023-11-08 10:27] LABS: Basophils Percent Auto 0.4 % (0.2-1.2); Eosinophils Absolute Auto 0.2 K/mm3 (0-0.3); Eosinophils Percent Auto 2.4 % (0-4.4); Hemoglobin 11.2 g/dL (14.0-18.0); Immature Granulocyte Absolute 0.04 K/mm3 (0.00-0.031); Immature Granulocyte Percent A 0.5 % (0-0.5); Lymphocytes Absolute Auto 2.07 K/mm3 (0.9-3.2); Lymphocytes Percent Auto 25.2 % (18.3-44.2); Mean Corpuscular Hemoglobin 33.8 pg (26-34); Mean Corpuscular Volume 96.7 fl (80-100); Mean Platelet Volume 9.6 fl (7.4-10.4); Monocytes Absolute Auto 0.6 K/mm3 (0.1-0.6); Monocytes Percent Auto 6.8 % (2.6-8.5); Neutrophils Absolute Auto 5.3 K/mm3 (1.3-6.7); Neutrophils Percent Auto 64.7 % (45.5-73.1); Platelet Count Result 166 k/mm3 (150-375); Red Blood Count 3.31 M/mm3 (4.6-6.20); Red Cell Distribution Width 14.8 % (11.5-14.5); White Blood Count 8.2 K/mm3 (4.5-10.0)
[2023-11-08 10:41] LABS: Alanine Aminotransferase 17 U/L (6-50); Albumin Level 4.6 g/dL (3.5-5.1); Alkaline Phosphatase 121 U/L (38-126); Anion Gap 10 mmol/L (4-12); Aspartate Amino Transferase 28 U/L (17-59); Bilirubin,Total 1.6 mg/dL (0.2-1.3); Blood Urea Nitrogen 37 mg/dL (9-20); Calcium 8.3 mg/dL (8.4-10.2); Carbon Dioxide 23 mmol/L (22-30); Chloride 105 mmol/L (98-107); Estimated CRCL calculation 35 ml/min; Estimated Glomerular Filt Rate 48; Glucose 117 mg/dL (65-110); Potassium 4.4 mmol/L (3.4-5.0); Sodium 138 mmol/L (137-145)
[2023-11-08 12:24] LABS: Appearance Urine Turbid (Clear); Bacteria Urine None Seen /hpf; Bilirubin Urine Negative (Negative); Blood Urine 3+ (Negative); Color Urine Yellow (Yellow); Glucose Urine UA Negative (Negative); Ketones Urine Negative (Negative); Leukocyte Esterase Ur 1+ LEU/UL (Negative); Nitrate Urine Negative (Negative); Non Pathogenic Casts 0-2; Protein Urine 1+ mg/dL (Negative); RBC Urine >100 /hpf (0-2); Specific Grav Ur 1.016 (1.001-1.035); Squamous Epithelial Cell Urine Occasional /hpf (Few); pH Urine 5.5 (5.0-9.0)
[2023-11-08 12:43] LABS: Add Urine Microscopic? YES
[2023-11-08 13:28] VITALS: BP 174/78; PULSE 63; RESP 18; O2SAT 96
--- NOTE | 2023-11-08 14:15 | ED.GENADULT ---
HPI - General Adult General Chief complaint: Abdominal Pain Stated complaint: left flank pain Time Seen by Provider: 11/08/23 12:23 patient 88-year-old gentleman who presents emergency department with chief complaint of left-sided flank pain. Patient reports that he was at a doctor's appointment today and went to the bathroom started urinating blood described as the fruit punch light colored no clots the patient reports that he then had pain in the left flank area and felt nauseated patient reports that he was driving home and decided to turn around as the pain was not getting better. The patient reports that he has prior history of kidney stones and sees urology at our facility. The patient does report that since he has arrived in the emergency department his pain feels much better Related Data Home Medications Medication Instructions Recorded Confirmed aspirin 81 mg tablet,delayed 81 mg PO BID 08/06/20 10/20/23 release cholecalciferol (vitamin D3) 50 50 mcg PO QAM 08/06/20 10/20/23 mcg (2,000 unit) capsule mecobalamin (vitamin B12) 500 mcg 500 mcg PO DAILY 03/04/23 10/20/23 chewable tablet vitamin E 180 mg PO DAILY 03/04/23 10/20/23 Allergies Allergy/AdvReac Type Severity Reaction Status Date / Time No Known Allergies Allergy Verified 11/08/23 07:37 Review of Systems Review of Systems: A 10 system review of systems was completed on the patient and is negative except for what is stated in the HPI. Nursing and ancillary documentation was reviewed. [facility] Past Medical History Medical History Abnormal urine Acute cerebrovascular accident Adenomatous colon polyp Bilateral kidney stones Halitosis Head injury due to trauma History of adenomatous polyp of colon Hypocalcemia Impacted cerumen, bilateral Other fatigue Ribs, multiple fractures Skin cancer Social History Social History Smoking status: Never smoker Second hand tobacco smoke exposure: No Alcohol intake: never Substance use: never Substance use type: does not use Lack of Transportation: No Lack of Food: Never True Current Housing: I Have Housing Concerned About Future Housing: No Difficulty Paying Gas/Electric Bills: No Difficulty Paying for Meds: No Currently Unemployed: No Education: High School Diploma/GED Difficulty w/ Childcare or Family Care: No Living arrangements: with family Spiritual care concerns: No Exam Narrative: GENERAL: Well-appearing, well-nourished, and in no acute distress. HEAD: Normocephalic, atraumatic. EYES: PERRLA and EOMI. ENT: Nares clear, no rhinorrhea or epistaxis. Mucous membranes moist. NECK: Supple. CHEST: Clear to auscultation. No respiratory distress. HEART: Regular rate and rhythm. No murmur heard. Normal peripheral pulses. ABDOMEN: Soft, nontender, nondistended, normal active bowel sounds. mild tenderness palpation the left flank EXTREMITIES: Normal range of motion. No edema. SKIN: Warm, dry, no rash. NEURO: No focal deficits. Alert and oriented x3. PSYCH: Normal mood and affect. Course Vital Signs Vital signs: Vital Signs Temperature 36.7 C 11/08/23 10:13 Pulse Rate 74 11/08/23 10:13 Respiratory Rate 18 11/08/23 10:13 Blood Pressure 167/90 H 11/08/23 10:13 Pulse Oximetry 100 11/08/23 10:13 Oxygen Delivery Room Air 11/08/23 10:13 Temperature 36.7 C 11/08/23 10:13 Pulse Rate 63 11/08/23 13:28 Respiratory Rate 18 11/08/23 13:28 Blood Pressure 174/78 H 11/08/23 13:28 Pulse Oximetry 96 11/08/23 13:28 Oxygen Delivery Room Air 11/08/23 10:13 Medical Decision Making [facility] Narrative Medical decision making narrative: differential diagnosis includes ureterolithiasis, hematuria, GI, renal failure, electrolyte abnormality, intra-abdominal pathology laboratory studies were obtained on
[2023-11-08 15:08] VITALS: BP 138/78; PULSE 81; RESP 17; O2SAT 100
== END 2023-11-08 15:09 | disposition home or self-care (01) ==
PROVIDERS: Emergency Medicine; Emergency Provider Emergency Medicine; PCP Physician Assistant
DX: R10.9 Unspecified abdominal pain (principal); R31.9 Hematuria, unspecified; Z79.82 Long term (current) use of aspirin
CPT/HCPCS: 36415; 74176; 80053; 81001; 85025; 87086; 87088; 99284; A4565

== ENCOUNTER 2024-05-18 09:22 | Outpatient (CLI) | payer MEDICARE, SELFPAY ==
--- NOTE | ~2024-05-18 | CT_ITS ---
EXAMINATION: CT abdomen pelvis wo con DATE: 05/18/2024 09:50 INDICATION: Benign prostatic hypertrophy. TECHNIQUE: Computed tomography (CT) of the abdomen and pelvis was performed without intravenous contr ast. Automated exposure control and iterative reconstruction technique were employed. The dose-length product was 920.64 mGy-cm. COMPARISON: CT abdomen and pelvis 11/08/2023 FINDINGS: The visualized portions of the lung bases demonstrate mild atelectasis. No pleural effusion . The heart size is normal. There are coronary artery calcifications. No pericardial effusion. There is a moderate-sized sliding hiatal hernia. The liver is normal. There are gallstones in the gallbladd er, which is normal in size. The spleen, pancreas, adrenal glands, and kidneys are normal. There is n o urolithiasis. There is a diverticulum of the bladder. There is diffuse bladder wall thickening, lik loli secondary to chronic outlet obstruction. The prostate is moderately enlarged. There are bilateral inguinal hernias containing fat. There is diverticulosis of the colon without evidence of diverticul itis. There are no dilated loops of bowel. The appendix is normal. There are no pathologically enlarg ed lymph nodes. There is no free intraperitoneal fluid. There is lumbar dextroscoliosis and severe sp ondylosis. IMPRESSION: 1. Moderately enlarged prostate. 2. Moderate-sized sliding hiatal hernia. 3. Bilateral inguinal hernias containing fat. Reviewed, dictated and finalized at location A. 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
== END 2024-05-18 09:23 | disposition home or self-care (01) ==
PROVIDERS: PCP Physician Assistant; Visit Provider Urology
DX: K44.9 Diaphragmatic hernia without obstruction or gangrene (principal); K40.20 Bilateral inguinal hernia, without obstruction or gangrene, not specified as recurrent; N40.0 Benign prostatic hyperplasia without lower urinary tract symptoms
CPT/HCPCS: 74176

== ENCOUNTER 2024-06-21 07:55 | Inpatient (IN) | payer MEDICARE, SELFPAY ==
[2024-06-21] VITALS (21 sets, daily range): BP systolic 112–242; BP diastolic 73–194; PULSE 86–120; RESP 15–31; TEMP 36.3–38.3; O2SAT 93–98; BMI 27.7; BMI 30.2
--- NOTE | ~2024-06-21 | CT_ITS ---
EXAMINATION: CT brain wo con DATE: 06/21/2024 10:24 INDICATION: Altered mental status TECHNIQUE: Computed tomography (CT) of the head was performed without intravenous contrast. Sagittal and coronal reconstructions were performed. The mA was adjusted according to patient size. Iterative reconstruction technique was employed. The dose-length product was 1362.00 mGy-cm. COMPARISON: Head CT dated 09/16/2018 FINDINGS: No acute intracranial hemorrhage, acute infarction or abnormal extra axial fluid collection. There is mild scattered white matter hypoattenuation consistent with chronic small vessel ischemic disease. Ventricles are normal and symmetric. No mass/mass effect. Changes of bilateral intraocular lens repla cement. The orbits, paranasal sinuses and mastoid air cells are normal. IMPRESSION: 1. Normal aging brain. Reviewed, dictated and finalized at location B. TEST DESK WORKER IMPRESSION: 1. Normal aging brain.
--- NOTE | ~2024-06-21 | CT_ITS ---
CT abdomen pelvis wo con Ordering provider: Judah Yan MD History: 89 years Male with . hematuria, sepsis, hsx of stone . Comparison: None. Technique: CT abdomen and pelvis without IV and without oral contrast. Automated exposure control and iterative reconstruction technique were employed. The dose-length product was 2141.50 mGy-cm. Findings: VISUALIZED LOWER CHEST: Dependent atelectatic changes. UPPER ABDOMINAL ORGANS: Liver: Normal. Gallbladder: Cholelithiasis. Spleen: Normal. Stomach/duodenum: Sliding hiatus hernia. Slightly thickened wall. Evaluation for gastritis advised. Pancreas: Normal. Adrenals: Normal. Kidneys: Normal. PELVIC ORGANS: The bladder is normal. Enlarged prostate. BOWEL AND MESENTERY: Colon: No evidence of diverticulitis. Appendix is not demonstrated. Small Bowel: Normal. No obstruction. Peritoneum/mesentery: No free air or free fluid. No mesenteric lymphadenopathy. RETROPERITONEUM: Mild atheromatous disease of the abdominal aorta. No retroperitoneal lymphadenopat hy. MUSCULOSKELETAL: Superficial soft tissues: The superficial soft tissues are normal. Bones: Age appropriate degenerative changes of the spine. Bilateral sacroiliitis more on the left. IMPRESSION: 1. Cholelithiasis. 2. No evidence of appendicitis, diverticulitis or intestinal obstruction. No renal stones. 3. Sliding hiatus hernia. 4. Enlarged prostate Reviewed, dictated and finalized at location A. ES 7 8 TUTOR IMPRESSION: 1. Cholelithiasis. 2. No evidence of appendicitis, diverticulitis or intestinal obstruction. No r enal stones. 3. Sliding hiatus hernia. 4. Enlarged prostate
--- NOTE | 2024-06-21 08:02 | ECG_ITS ---
Test Date: 2024-06-21 08:38:13 Measurements Intervals [place] Rate: 89 P: 44 SC: 164 QRS: 19 QRSD: 79 T: 24 QT: 382 QTc: 467 Interpretive Statements SINUS RHYTHM MINIMAL ST DEPRESSION [0.025+ mV ST DEPRESSION] ABNORMAL ECG Electronically Signed On 06-21-2024 08:45:25 WASHROOM OPERATOR by Buck Jiménez M.D.
--- NOTE | 2024-06-21 08:17 | ED_ITS ---
HPI - General Adult General Chief complaint: Altered Mental Status Stated complaint: ams Time Seen by Provider: 06/21/24 08:01 History of Present Illness HPI narrative: 89-year-old male presenting to the emergency department for evaluation for increased confusion and altered mental status. Patient is typically A&O x4 baseline and does live at home. states with the patient woke up this morning he was more confused. Patient has no focal neuro deficit but is agitated and uncooperative with transportation and the exam. Patient denies any pain or complaints Related Data Home Medications ?Medication ?Instructions ?Recorded ?Confirmed ?Last Taken ?Type aspirin 81 mg tablet,delayed 81 mg PO BID 08/06/20 06/21/24 06/20/24 History release cholecalciferol (vitamin D3) 50 50 mcg PO QAM 08/06/20 06/21/24 06/20/24 History mcg (2,000 unit) capsule mecobalamin (vitamin B12) 500 mcg 500 mcg PO DAILY 03/04/23 06/21/24 06/20/24 History chewable tablet vitamin E 180 mg PO DAILY 03/04/23 06/21/24 06/20/24 History atorvastatin 20 mg tablet 20 mg PO DAILY 06/21/24 06/21/24 06/20/24 History Allergies Allergy/AdvReac Type Severity Reaction Status Date / Time No Known Allergies Allergy Verified 05/08/24 09:03 Review of Systems 2 Review of Systems: ROS unobtainable: Yes unobtainable due to mental status PMFSH Past Medical History Medical History (Updated 06/21/24 @ 15:36 by Bijal Mattson DO) Vitamin D deficiency Presbycusis of both ears Mixed hyperlipidemia Hypertension BPH (benign prostatic hyperplasia) Gastroesophageal reflux disease without esophagitis Occlusion and stenosis of unspecified carotid artery History of adenomatous polyp of colon Ribs, multiple fractures Hypocalcemia Bilateral kidney stones Impacted cerumen, bilateral Acute cerebrovascular accident Halitosis Skin cancer Surgical History Surgical History (Updated 06/21/24 @ 15:27 by Bijal Mattson DO) Status post cataract extraction of both eyes with insertion of intraocular lens History of bilateral knee replacement Family History Family History Father Colon cancer Mother Congestive heart failure Social History Social History (Updated 06/21/24 @ 15:28 by Bijal Mattosn DO) Social History: Patient lives with his of 50 years. They never had any children. The patient is still independent in all activities of daily living including driving. He is a lifelong nonsmoker and does not drink alcohol or use illicit substances. 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 Code status: Full code Surrogate decision maker: Michelle () Smoking status: Never smoker Second hand tobacco smoke exposure: No Alcohol intake: never Substance use: never Substance use type: does not use Lack of Transportation: No Lack of Food: Never True Current Housing: I Have Housing Concerned About Future Housing: No Difficulty Paying Gas/Electric Bills: No Difficulty Paying for Meds: No Currently Unemployed: No Education: High School Diploma/GED Difficulty w/ Childcare or Family Care: No Living arrangements: with family Occupation/Education: retired Gender identity (if verbalized by the patient): Male Sexual Orientation (if Verbalized by the Patient): Straight or Heterosexual Spiritual care concerns: No Exam 2 Narrative: APPEARANCE: Ill-appearing, agitated HEAD: normocephalic, atraumatic. EYES: PERRLA/EOMI, conjunctivae clear. NOSE: Normal no drainage EARS:TMS clear with good light reflex. THROAT: Pharynx clear, no exudate. NECK: Supple. No adenopathy, no masses. RESPIRATORY: Airway patent, respirations nonlabored. Clear to auscultation bilaterally, no rales, rhonchi, wheezing. CARDIOVASCULAR: Regular rate and rhythm without murmurs rubs or gallops. ABDOMINAL: Soft, nontender, nondistended, normal bowel sounds MUSCULOSKELETAL: Moves all extremities. Strength/ROM intact, No edema, No calf tenderness. NEURO: Alert. Cranial nerves II through XII intact. Good gait. Good coordination SKIN: Punctate ecchymotic rash across chest Course Vital Signs Vital signs: Vital Signs Temperature 97.3 F L 06/21/24 07:59 Pulse Rate 94 06/21/24 07:59 Respiratory Rate 20 06/21/24 07:59 Blood Pressure 159/73 H 06/21/24 07:59 Pulse Oximetry 98 06/21/24 07:59 Oxygen Delivery Room Air 06/21/24 07:59 Temperature 100.9 F H 06/21/24 16:00 Pulse Rate 116 H 06/21/24 18:00 Respiratory Rate 20 06/21/24 16:00 Blood Pressure 112/85 06/21/24 16:00 Pulse Oximetry 94 06/21/24 16:00 Oxygen Delivery Room Air 06/21/24 07:59 Medical Decision Making [facility] Narrative Medical decision making narrative: 89-year-old male present to the emergency department for evaluation for acute onset of confusion. Head CT was negative for acute intracranial abnormality. Patient is afebrile with no leukocytosis and hemoglobin of 10.4. INR is 1.1. No significant acute abnormalities the patient's CMP than calcium low at 5.4 UA was concerning for urinary tract infection. Patient was started on antibiotics in the emergency department and urine culture is pending. Patient was negative for influenza RSV and for COVID. Patient does have a history of kidney stones, CT scan was ordered and showed no evidence of obstructive stones. Case discussed with hospitalist patient was accepted for admission. Differential Diagnosis Differential Diagnosis: Appendicitis, colitis, diverticulitis, urinary tract infection, infected kidney stone subdural hematoma, subarachnoid hemorrhage Vital Signs Vital Signs: Vital Signs Temperature 97.3 F L 06/21/24 07:59 Pulse Rate 94 06/21/24 07:59 Respiratory Rate 20 06/21/24 07:59 Blood Pressure 159/73 H 06/21/24 07:59 Pulse Oximetry 98 06/21/24 07:59 Oxygen Delivery Room Air 06/21/24 07:59 Temperature 100.9 F H 06/21/24 16:00 Pulse Rate 116 H 06/21/24 18:00 Respiratory Rate 20 06/21/24 16:00 Blood Pressure 112/85 06/21/24 16:00 Pulse Oximetry 94 06/21/24 16:00 Oxygen Delivery Room Air 06/21/24 07:59 Lab Data Lab results reviewed: Yes I reviewed the patient's lab results. 06/21/24 08:27 06/21/24 08:27 Labs: Lab Results 06/21/24 06/21/24 06/21/24 Range/Units 08:22 08:26 08:27 WBC 7.6 (4.5-10.0) K/mm3 RBC 3.12 L (4.6-6.20) M/mm3 Hgb 10.4 L (14.0-18.0) g/dL Hct 30.5 L (42.0-52.0) % MCV 97.8 (80-100) fl MCH 33.3 (26-34) pg MCHC 34.1 (32-36) g/dl RDW 15.9 H (11.5-14.5) % Plt Count 153 (150-375) k/mm3 MPV 9.8 (7.4-10.4) fl Immature Gran % (Auto) 0.5 (0-0.5) % Neut % (Auto) 81.9 H (45.5-73.1) % Lymph % (Auto) 11.0 L (18.3-44.2) % Archer % (Auto) 5.7 (2.6-8.5) % Eos % (Auto) 0.8 (0-4.4) % Baso % (Auto) 0.1 L (0.2-1.2) % Lymph # (Auto) 0.83 L (0.9-3.2) K/mm3 Archer # (Auto) 0.4 (0.1-0.6) K/mm3 Eos # (Auto) 0.1 (0-0.3) K/mm3 Baso # (Auto) 0.0 (0.0-0.1) K/mm3 Abs Immat Gran (auto) 0.04 H (0.00-0.031) K/mm3 Absolute Neuts (auto) 6.2 (1.3-6.7) K/mm3 Absolute Nucleated RBC 0.000 (0.0-0.012) K/mm3 Nucleated RBC % 0.0 (0.0-0.2) % PT 14.4 (11.1-14.7) Seconds INR 1.1 APTT 42.1 H (22.3-36.8) Seconds Sodium 138 (137-145) mmol/L Potassium 3.3 L (3.4-5.0) mmol/L Chloride 104 (98-107) mmol/L Carbon Dioxide 29 (22-30) mmol/L Anion Gap 5 (4-12) mmol/L BUN 19 D (9-20) mg/dL Creatinine 1.10 (0.7-1.3) mg/dL Estim Creat Clear Calc 45 ml/min Estimated GFR > 60 (59 - ) Glucose 141 H (65-110) mg/dL Calcium 5.7 L* (8.4-10.2) mg/dL Total Bilirubin 2.6 H (0.2-1.3) mg/dL AST 36 (17-59) U/L ALT 17 (6-50) U/L Alkaline Phosphatase 101 (38-126) U/L Total Protein 8.0 (6.3-8.2) g/dL Albumin 4.4 (3.5-5.1) g/dL Urine Color Yellow (Yellow) Urine Appearance Cloudy H (Clear) Urine pH 5.5 (5.0-9.0) Ur Specific Peyton 1.017 (1.001-1.035) Urine Protein 1+ H (Negative) mg/dL Urine Glucose (UA) Negative (Negative) mg/dL Urine Ketones Trace H (Negative) mg/dL Ur Blood (Man) 1+ H (Negative) Urine Nitrate Negative (Negative) Urine Bilirubin Negative (Negative) Urine Urobilinogen 2.0 H (<2.0) mg/dL Leukocyte Esterase Rfl 3+ H (Negative) NORMAN/UL Urine RBC 11-20 H (0-2) /hpf Urine WBC >100 H (0-3) /hpf Ur Squamous Epith Cells None seen (Few) /hpf Urine Bacteria 4+ /hpf Urine Casts 0-2 Influenza A (RT-PCR) Negative (Negative) Influenza B (RT-PCR) Negative (Negative) RSV (RT-PCR) Negative (Negative) SARS-CoV-2 RNA (RT-PCR) Negative (Negative) Imaging Data Radiologist's impression: Impressions Head CT 06/21/24 10:27 IMPRESSION: 1. Normal aging brain. Discharge Plan Discharge Clinical Impression: AMS (altered mental status), Acute UTI Patient Disposition: Still a Patient Condition: Serious
[2024-06-21 08:35] LABS: Basophils Percent Auto 0.1 % (0.2-1.2); Eosinophils Absolute Auto 0.1 K/mm3 (0-0.3); Eosinophils Percent Auto 0.8 % (0-4.4); Hematocrit 30.5 % (42.0-52.0); Hemoglobin 10.4 g/dL (14.0-18.0); Immature Granulocyte Absolute 0.04 K/mm3 (0.00-0.031); Immature Granulocyte Percent A 0.5 % (0-0.5); Lymphocytes Absolute Auto 0.83 K/mm3 (0.9-3.2); Mean Corpuscular HGB Conc 34.1 g/dl (32-36); Mean Corpuscular Hemoglobin 33.3 pg (26-34); Mean Corpuscular Volume 97.8 fl (80-100); Mean Platelet Volume 9.8 fl (7.4-10.4); Monocytes Absolute Auto 0.4 K/mm3 (0.1-0.6); Monocytes Percent Auto 5.7 % (2.6-8.5); Neutrophils Absolute Auto 6.2 K/mm3 (1.3-6.7); Neutrophils Percent Auto 81.9 % (45.5-73.1); Platelet Count Result 153 k/mm3 (150-375); Red Blood Count 3.12 M/mm3 (4.6-6.20); Red Cell Distribution Width 15.9 % (11.5-14.5); White Blood Count 7.6 K/mm3 (4.5-10.0)
[2024-06-21 08:52] LABS: INR 1.1; Partial Thromboplastin Time 42.1 Seconds (22.3-36.8); Prothrombin Time 14.4 Seconds (11.1-14.7)
[2024-06-21 08:54] LABS: Alanine Aminotransferase 17 U/L (6-50); Albumin Level 4.4 g/dL (3.5-5.1); Alkaline Phosphatase 101 U/L (38-126); Anion Gap 5 mmol/L (4-12); Aspartate Amino Transferase 36 U/L (17-59); Bilirubin,Total 2.6 mg/dL (0.2-1.3); Blood Urea Nitrogen 19 mg/dL (9-20); Calcium 5.7 mg/dL (8.4-10.2); Carbon Dioxide 29 mmol/L (22-30); Chloride 104 mmol/L (98-107); Estimated CRCL calculation 45 ml/min; Estimated Glomerular Filt Rate > 60; Glucose 141 mg/dL (65-110); Potassium 3.3 mmol/L (3.4-5.0); Sodium 138 mmol/L (137-145)
[2024-06-21 09:17] LABS: Add Urine Microscopic? YES; Appearance Urine Cloudy (Clear); Bacteria Urine 4+ /hpf; Bilirubin Urine Negative (Negative); Blood Urine 1+ (Negative); Color Urine Yellow (Yellow); Glucose Urine UA Negative (Negative); Ketones Urine Trace mg/dL (Negative); Leukocyte Esterase Ur 3+ LEU/UL (Negative); Nitrate Urine Negative (Negative); Non Pathogenic Casts 0-2; Protein Urine 1+ mg/dL (Negative); Specific Grav Ur 1.017 (1.001-1.035); Squamous Epithelial Cell Urine None Seen /hpf (Few); WBC Urine >100 /hpf (0-3); pH Urine 5.5 (5.0-9.0)
[2024-06-21 09:21] LABS: Influenza A QL RT-PCR Negative (Negative); Influenza B QL RT-PCR Negative (Negative); RSV RNA, RT-PCR Negative (Negative); SARS-CoV-2 RNA PCR Negative (Negative)
[2024-06-21] MEDS: LORazepam INJ (*CRX) 2 MG/ML VIAL 1 MG IV PUSH (10:52)
[2024-06-21] MEDS: SODIUM CHLORIDE 0.9% IV 1,000 ML 999 ML IV CONT (10:56)
--- NOTE | 2024-06-21 13:19 | PC.NURSE ---
Patient arrived from ED. Patient agitated and does not respond to questions. Telemetry applied. at bedside.
[2024-06-21] MEDS: STAT BOLUS COMMUNICATION ORDER 2700 ML IV CONT (14:19)
[2024-06-21] MEDS: CALCIUM GLUCONATE 1,000 MG/10 ML VIAL 1000 MG IV PUSH (14:56)
--- NOTE | 2024-06-21 15:13 | PM.IMHP ---
H&P: HPI History of Present Illness Date/Time: 06/21/24 15:13 Chief Complaint: Confused Narrative: 89-year-old male with past medical history of BPH, essential hypertension, type 2 diabetes mellitus, GERD and B12 deficiency who presented to the ER via EMS from home due to acute onset of confusion. The patient's provides all they information she states the patient is usually alert orient x4 but is only alert orient x1 at the time of my evaluation. She states that she had been ill with upper respiratory symptoms so they had been sleeping in the recliner send the living room. She woke up this morning in the designer writer hours and found the patient sitting on the couch with his pants down. The patient was telling her that he needed to use the restroom and thought that he was in the bathroom. She had difficulty redirecting him. When she tried to get the patient up to get him to go to the bathroom he was too weak to stand. She denied him reporting any preceding symptoms. On initial arrival to the ER the patient was afebrile but did spike a temperature of 100.6? after arriving to the IMU. She reports that the patient had not had anything to eat since the night before. He is noted to have trouble from the corner of his mouth. She states that he had not had any nausea or vomiting. The material, may not require her his mouth with dark in color she states that she thinks that he was biting his tongue whenever he was fighting them. The patient did have a bruise with small laceration noted to the right side of the tongue. She denies any falls are recent head trauma. She does report that he has an extremely large prostate but she denies him having any urinary symptoms. However since he has been admitted to the hospital he does want to emergently jump out of bed and run for the bathroom. So he is definitely having some urgency and frequency. He did have some suprapubic tenderness on evaluation. She denies the patient having any diarrhea or loss of bladder or bowel control. He has not had any recent UTIs. She reports that his last A1c was 4.6% and he is on metformin at home. Review of Systems Review of Systems: ROS unobtainable: Yes unobtainable due to mental status PMFSH Past Medical History Medical History (Updated 06/21/24 @ 15:36 by Bijal Mattson DO) Vitamin D deficiency Presbycusis of both ears Mixed hyperlipidemia Hypertension BPH (benign prostatic hyperplasia) Gastroesophageal reflux disease without esophagitis Occlusion and stenosis of unspecified carotid artery History of adenomatous polyp of colon Ribs, multiple fractures Hypocalcemia Bilateral kidney stones Impacted cerumen, bilateral Acute cerebrovascular accident Halitosis Skin cancer Surgical History Surgical History (Updated 06/21/24 @ 15:27 by Bijal Mattson DO) Status post cataract extraction of both eyes with insertion of intraocular lens History of bilateral knee replacement Family History Family History Father Colon cancer Mother Congestive heart failure Social History Social History (Updated 06/21/24 @ 15:28 by Bijal Mattson DO) Social History: Patient lives with his of 50 years. They never had any children. The patient is still independent in all activities of daily living including driving. He is a lifelong nonsmoker and does not drink alcohol or use illicit substances. 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 Code status: Full code Surrogate decision maker: Michelle () Smoking status: Never smoker Second hand tobacco smoke exposure: No Alcohol intake: never Substance use: never Substance use type: does not use Lack of Transportation: No Lack of Food: Never True Current Housing: I Have Housing Concerned About Future Housing: No Difficulty Paying Gas/Electric Bills: No Difficulty Paying for Meds: No Currently Unemployed: No Education: High School Diploma/GED Difficulty w/ Childcare or Family Care: No Living arrangements: with family Occupation/Education: retired Gender identity (if verbalized by the patient): Male Sexual Orientation (if Verbalized by the Patient): Straight or Heterosexual Spiritual care concerns: No Meds Home Medications and Allergies Home Medications ?Medication ?Instructions ?Recorded ?Confirmed ?Type aspirin 81 mg tablet,delayed 81 mg PO BID 08/06/20 06/21/24 History release cholecalciferol (vitamin D3) 50 50 mcg PO QAM 08/06/20 06/21/24 History mcg (2,000 unit) capsule finasteride 5 mg tablet 5 mg PO QAM #90 tabs 11/16/21 06/21/24 Rx blood sugar diagnostic See Rx Instructions .Route 04/06/22 06/21/24 Rx .COMPLEX #100 strips mecobalamin (vitamin B12) 500 mcg 500 mcg PO DAILY 03/04/23 06/21/24 History chewable tablet vitamin E 180 mg PO DAILY 03/04/23 06/21/24 History lancets 33 gauge (SummerTouch David #100 ea 04/05/23 06/21/24 Rx Plus Lancet) hydrochlorothiazide 12.5 mg tablet See Rx Instructions .Route 12/22/23 06/21/24 Rx .COMPLEX #90 tabs atenolol 50 mg tablet 50 mg PO QAM #90 tabs 01/13/24 06/21/24 Rx metformin 500 mg tablet 500 mg PO DAILY #90 tabs 01/20/24 06/21/24 Rx omeprazole 20 mg capsule,delayed 20 mg PO QAM #90 caps 01/23/24 06/21/24 Rx release losartan 100 mg tablet 100 mg PO QAM #90 tabs 05/07/24 06/21/24 Rx atorvastatin 20 mg tablet 20 mg PO DAILY 06/21/24 06/21/24 History blood sugar diagnostic (Protean ElectricTouch #100 strips 06/21/24 06/21/24 Rx Ultra Test strips) Allergies Allergy/AdvReac Type Severity Reaction Status Date / Time No Known Allergies Allergy Verified 05/08/24 09:03 Vital Signs Vital Signs - 24 hr 06/21/24 07:59 06/21/24 08:30 06/21/24 08:31 Temperature 97.3 F L Pulse Rate 94 88 86 Respiratory Rate 20 15 16 Blood Pressure 159/73 H 181/75 H Pulse Oximetry 98 Oxygen Delivery Room Air 06/21/24 09:06 06/21/24 09:18 06/21/24 09:57 Temperature Pulse Rate 106 H 88 102 H Respiratory Rate 31 H 18 24 H Blood Pressure 242/194 H 172/74 H Pulse Oximetry 93 Oxygen Delivery 06/21/24 10:00 06/21/24 10:25 06/21/24 10:30 Temperature Pulse Rate 97 112 H 102 H Respiratory Rate 22 H 24 H 21 H Blood Pressure Pulse Oximetry Oxygen Delivery 06/21/24 10:40 06/21/24 11:12 06/21/24 11:15 Temperature Pulse Rate 112 H 98 89 Respiratory Rate 29 H 21 H 19 Blood Pressure 184/84 H Pulse Oximetry 93 Oxygen Delivery 06/21/24 11:32 06/21/24 12:35 06/21/24 14:00 Temperature 100.6 F H Pulse Rate 97 101 H 101 H Respiratory Rate 20 22 H Blood Pressure 162/79 H Pulse Oximetry 97 98 Oxygen Delivery Exam Narrative: Weight 90 kg BMI 30.2 Const: Other: Acutely ill-appearing, overweight, appears stated age HENMT: Other: Head is normocephalic atraumatic, mucous membranes are tacky, small laceration and bruising to the right lateral tongue, fair dentition with irregular spacing of teeth Eyes: Other: Pupils are equal and reactive, no scleral icterus, no conjunctival pallor Neck: Other: No JVD, no lymphadenopathy Resp: Other: Clear to auscultation bilaterally, no increased work of breathing Cardio: Other: Tachycardic, regular rhythm, 2+ bilateral radial pulses, 1+ bilateral pedal pulses, no murmur GI: Other: Soft, nontender, nondistended, positive bowel sounds : Other: Suprapubic tenderness, pure wick catheter in place with dark yellow urine in the VAC canister Skin: Other: Hot to touch, non jaundice, no pallor Neuro: Other: Patient is alert and oriented to name only, he is confused, pulling at devices and trying to get out of bed, difficult to redirect, equal strength in all extremities, no facial asymmetry despite evidence of dried drool from the right corner of the mouth Extrem: Other: 5/5 bilateral upper and lower extremity strength, trace pedal edema Psych: Other: Agitated, confused, uncooperative, poor judgment and insight H&P: Results Labs Labs: Laboratory Tests 06/21/24 08:27 06/21/24 08:27 06/21/24 06/21/24 06/21/24 08:22 08:26 08:27 WBC 7.6 RBC 3.12 L Hgb 10.4 L Hct 30.5 L MCV 97.8 MCH 33.3 MCHC 34.1 RDW 15.9 H Plt Count 153 MPV 9.8 Immature Gran % (Auto) 0.5 Neut % (Auto) 81.9 H Lymph % (Auto) 11.0 L Prentiss % (Auto) 5.7 Eos % (Auto) 0.8 Baso % (Auto) 0.1 L Lymph # (Auto) 0.83 L Prentiss # (Auto) 0.4 Eos # (Auto) 0.1 Baso # (Auto) 0.0 Abs Immat Gran (auto) 0.04 H Absolute Neuts (auto) 6.2 Absolute Nucleated RBC 0.000 Nucleated RBC % 0.0 PT 14.4 INR 1.1 APTT 42.1 H Sodium 138 Potassium 3.3 L Chloride 104 Carbon Dioxide 29 Anion Gap 5 BUN 19 D Creatinine 1.10 Estim Creat Clear Calc 45 Estimated GFR > 60 Glucose 141 H Calcium 5.7 L* Total Bilirubin 2.6 H AST 36 ALT 17 Alkaline Phosphatase 101 Total Protein 8.0 Albumin 4.4 Urine Color Yellow Urine Appearance Cloudy H Urine pH 5.5 Ur Specific Mcdermitt 1.017 Urine Protein 1+ H Urine Glucose (UA) Negative Urine Ketones Trace H Ur Blood (Man) 1+ H Urine Nitrate Negative Urine Bilirubin Negative Urine Urobilinogen 2.0 H Leukocyte Esterase Rfl 3+ H Urine RBC 11-20 H Urine WBC >100 H Ur Squamous Epith Cells None seen Urine Bacteria 4+ Urine Casts 0-2 Influenza A (RT-PCR) Negative Influenza B (RT-PCR) Negative RSV (RT-PCR) Negative SARS-CoV-2 RNA (RT-PCR) Negative Impressions Head CT 06/21/24 10:27 IMPRESSION: 1. Normal aging brain. Abdomen/Pelvis CT 06/21/24 12:03 IMPRESSION: 1. Cholelithiasis. 2. No evidence of appendicitis, diverticulitis or intestinal obstruction. No renal stones. 3. Sliding hiatus hernia. 4. Enlarged prostate EKG: Measurements Intervals Cisne Rate: 89 P: 44 MA: 164 QRS: 19 QRSD: 79 T: 24 QT: 382 QTc: 467 Interpretive Statements SINUS RHYTHM MINIMAL ST DEPRESSION [0.025+ mV ST DEPRESSION] ABNORMAL ECG All imaging and EKGs personally reviewed and interpreted. And unless stated otherwise agree with radiologic and cardiology interpretation. Assessment and Plan Assessment and plan (1) Sepsis: Qualifiers: Sepsis type: sepsis due to unspecified organism Sepsis acute organ dysfunction status: with acute organ dysfunction Severe sepsis acute organ dysfunction type: encephalopathy Severe sepsis shock status: without septic shock Qualified Code(s): A41.9 - Sepsis, unspecified organism; R65.20 - Severe sepsis without septic shock; G93.41 - Metabolic encephalopathy Code(s): A41.9 - Sepsis, unspecified organism Status: Acute (2) Acute UTI: Code(s): N39.0 - Urinary tract infection, site not specified Status: Acute (3) Acute metabolic encephalopathy: Code(s): G93.41 - Metabolic encephalopathy Status: Acute (4) Hypocalcemia: Code(s): E83.51 - Hypocalcemia Status: Acute (5) BPH (benign prostatic hyperplasia): Qualifiers: Lower urinary tract symptom presence: symptoms present Lower urinary tract symptom detail: urinary frequency Qualified Code(s): N40.1 - Benign prostatic hyperplasia with lower urinary tract symptoms; R35.0 - Frequency of micturition Code(s): N40.0 - Benign prostatic hyperplasia without lower urinary tract symptoms Status: Acute (6) GERD (gastroesophageal reflux disease): Qualifiers: Esophagitis presence: esophagitis presence not specified Qualified Code(s): K21.9 - Gastro-esophageal reflux disease without esophagitis Code(s): K21.9 - Gastro-esophageal reflux disease without esophagitis Status: Acute (7) Diabetes type 2, controlled: Qualifiers: Diabetes mellitus intermediate accountant insulin use: without intermediate accountant use Diabetes mellitus complication status: without complication Qualified Code(s): E11.9 - Type 2 diabetes mellitus without complications Code(s): E11.9 - Type 2 diabetes mellitus without complications Status: Acute (8) Hypertension: Qualifiers: Hypertension type: essential hypertension Qualified Code(s): I10 - Essential (primary) hypertension Code(s): I10 - Essential (primary) hypertension Status: Acute (9) Acute hypokalemia: Code(s): E87.6 - Hypokalemia Status: Acute Plan Patient has sepsis due to acute UTI with associated acute metabolic encephalopathy. The patient on started empiric antibiotic therapy with Rocephin. Urine cultures were obtained in the ER. Blood cultures were not obtained in the ER but have been ordered. Lab is having difficulty obtaining blood cultures due to patient's agitation from his encephalopathy. I gave the patient a dose of Zyprexa for his encephalopathy. nanny babysitter has been ordered for bedside. Patient does appear acutely dehydrated with dry mucous membranes in trace ketones in his urine. He received 30 mL/kilos fluid bolus the ER. Will continue maintenance IV fluids until tomorrow a.m. then re-evaluate fluid status. Will repeat CBC and electrolyte panel in a.m.. Will monitor strict I&O's. The patient does have severe hypokalemia. 1 g calcium gluconate ordered. To will repeat calcium level this evening and will also repeat calcium level with a.m. labs. Will supplement as needed. Patient does have chronic mild hypokalemia history of vitamin-D deficiency. However, hypokalemia is more severe at this time. He also does have some mild hypokalemia. 40 mEq potassium chloride rider has been ordered. Will check potassium level and magnesium level with a.m. labs. Will continue the patient's home BPH medications and monitor urine output closely. Will check intermittent postvoid residuals to ensure no evidence of urinary retention. Will hold the patient's home metformin patient has known A1c of less than 5. Will check Accu-Cheks q.6 hours since patient is currently not eating. Will change patient's diet consistent carbohydrate. Will resume the patient's home losartan but will hold patient's home hydrochlorothiazide. Will continue patient's omeprazole as this will help for both his chronic GERD and for GI prophylaxis. Patient has been admitted as observation status. Quality VTE Prophylaxis VTE prophylaxis: mechanical ordered (SCDs) Hospitalist [facility] Advance Care Plan I have confirmed that the patient's Advanced Care Plan is present, code status is documented, or surrogate decision maker is listed in patient medical record.: Yes Medication Reconciliation I have utilized all available resources to obtain, update and review the patients current medications (includes all prescriptions, OTC, herbals, cannabis, and nutritional supplements).: Yes
[2024-06-21] MEDS: OLANZapine 5 MG, WATER, STERILE FOR INJECTION 2.1 ML IM ×2 (15:26→20:59)
[2024-06-21] MEDS: KCL 40 MEQ/WATER 100 ML 100 ML 25 ML IVPB (16:30)
[2024-06-21] MEDS: SODIUM CHLORIDE 0.9% IV 1,000 ML 100 ML IV CONT (18:29)
[2024-06-21 18:40] LABS: Calcium 5.4 mg/dL (8.4-10.2)
[2024-06-21 18:54] LABS: Glucose Point of Care 104 mg/dl (65-105)
[2024-06-21] MEDS: CALCIUM GLUC 2,000 MG/NS 100ML 2,000 MG/100 ML BAG 100 MG IVPB (18:57)
--- NOTE | 2024-06-21 21:57 | PC.NURSE ---
Pt. very confused and disorientated. Pt. is trying to throw himself out of the bed by turning on his side and throwing his legs over the rail. Several attempts have been made to keep patient in bed per rn and tech. Have also attempted several times to orient patient. Received orders from the physician for restraints for patients safety. Sitter at bedside. Will continue to monitor pt. closely.
[2024-06-21] MEDS: PHARMACIST COMMUNICATION ORDER 1 EACH XX (22:11)
[2024-06-22] VITALS (15 sets, daily range): BP systolic 114–146; BP diastolic 55–69; PULSE 77–120; RESP 18–23; TEMP 36.6–37.3; O2SAT 93–95
[2024-06-22 00:54] LABS: Glucose Point of Care 118 mg/dl (65-105)
[2024-06-22] MEDS: SODIUM CHLORIDE 0.9% IV 1,000 ML 100 ML IV CONT (04:24)
--- NOTE | 2024-06-22 08:18 | PM.IMPN ---
Progress Note: A&P Assessment and Plan (1) Sepsis: Qualifiers: Sepsis acute organ dysfunction status: with acute organ dysfunction Sepsis type: sepsis due to unspecified organism Severe sepsis acute organ dysfunction type: encephalopathy Severe sepsis shock status: without septic shock Qualified Code(s): A41.9 - Sepsis, unspecified organism; R65.20 - Severe sepsis without septic shock; G93.41 - Metabolic encephalopathy Code(s): A41.9 - Sepsis, unspecified organism Status: Acute (2) Acute UTI: Code(s): N39.0 - Urinary tract infection, site not specified Status: Acute (3) Acute metabolic encephalopathy: Code(s): G93.41 - Metabolic encephalopathy Status: Acute (4) Hypocalcemia: Code(s): E83.51 - Hypocalcemia Status: Acute (5) BPH (benign prostatic hyperplasia): Qualifiers: Lower urinary tract symptom detail: urinary frequency Lower urinary tract symptom presence: symptoms present Qualified Code(s): N40.1 - Benign prostatic hyperplasia with lower urinary tract symptoms; R35.0 - Frequency of micturition Code(s): N40.0 - Benign prostatic hyperplasia without lower urinary tract symptoms Status: Acute (6) GERD (gastroesophageal reflux disease): Qualifiers: Esophagitis presence: esophagitis presence not specified Qualified Code(s): K21.9 - Gastro-esophageal reflux disease without esophagitis Code(s): K21.9 - Gastro-esophageal reflux disease without esophagitis Status: Acute (7) Diabetes type 2, controlled: Qualifiers: Diabetes mellitus complication status: without complication Diabetes mellitus residential insulin use: without intermodal truck driver use Qualified Code(s): E11.9 - Type 2 diabetes mellitus without complications Code(s): E11.9 - Type 2 diabetes mellitus without complications Status: Acute (8) Hypertension: Qualifiers: Hypertension type: essential hypertension Qualified Code(s): I10 - Essential (primary) hypertension Code(s): I10 - Essential (primary) hypertension Status: Acute (9) Acute hypokalemia: Code(s): E87.6 - Hypokalemia Status: Acute Plan This is an 89-year-old male who presents to the ED for altered mental status. Patient typically is alert and oriented x4 at baseline and lives at home With his . stated that patient woke up this morning and was more confused and agitated on cooperative with transportation and exam. On ED arrival he was febrile at 100.9 tachycardic blood pressure was adequate. CT head was negative for any acute intracranial abnormality. Laboratory workup revealed normal WBC of 7.6 mild anemia 10.4 mild hypokalemia at 3.3. Calcium was low at 5.7 with normal albumin. LFT was normal except for total bilirubin of 2.6. Urinalysis was positive for UTI. Influenza a B RSV COVID swab was negative.CT abdomen pelvis with cholelithiasis with no evidence of appendicitis diverticulitis or a intestinal obstruction. No renal stones. Sliding hiatal hernia and enlarged prostate was also noted. Patient diagnosed with sepsis likely due to acute UTI associated with acute metabolic encephalopathy. Patient started on Rocephin. Pancultured. Follow blood culture. Also received IV fluid resuscitation. Agitation altered mental status received a dose of Zyprexa in the ER Along with lorazepam. Repeat dosing of Zyprexa overnight as well. He is more lucid today Hypokalemia/ hypocalcemia: Replace and monitor Hypertension losartan hold hydrochlorothiazide GERD on omeprazole Type 2 diabetes on metformin at home which is held. Continue Accu-Chek monitoring BPH on fine S tried DVT prophylaxis Lovenox Code status full code. Subjective Date/time seen: 06/22/24 08:18 Interval history: no new complaints; no sob, chest pain. he is more awake and alert Review of Systems Review of Systems: All systems reviewed & are unremarkable except as noted in HPI and below Exam Narrative: APPEARANCE: Ill-appearing, calm, cooperative, HEAD: normocephalic, atraumatic. EYES: PERRLA/EOMI, conjunctivae clear. NOSE: Normal no drainage NECK: Supple. No adenopathy, no masses. RESPIRATORY: Airway patent, respirations nonlabored. Clear to auscultation bilaterally, no rales, rhonchi, wheezing. CARDIOVASCULAR: Regular rate and rhythm without murmurs rubs or gallops. ABDOMINAL: Soft, nontender, nondistended, normal bowel sounds MUSCULOSKELETAL: Moves all extremities. Strength/ROM intact, No edema, No calf tenderness. NEURO: Alert. Oriented to time place and person Cranial nerves II through XII intact. SKIN: Punctate ecchymotic rash across chest Objective Data Vital Signs Vital Signs: Vital Signs - 24 hr 06/21/24 08:30 06/21/24 08:31 06/21/24 09:06 Temperature Pulse Rate 88 86 106 H Respiratory Rate 15 16 31 H Blood Pressure 181/75 H 242/194 H Pulse Oximetry Oxygen Delivery 06/21/24 09:18 06/21/24 09:57 06/21/24 10:00 Temperature Pulse Rate 88 102 H 97 Respiratory Rate 18 24 H 22 H Blood Pressure 172/74 H Pulse Oximetry 93 Oxygen Delivery 06/21/24 10:25 06/21/24 10:30 06/21/24 10:40 Temperature Pulse Rate 112 H 102 H 112 H Respiratory Rate 24 H 21 H 29 H Blood Pressure 184/84 H Pulse Oximetry 93 Oxygen Delivery 06/21/24 11:12 06/21/24 11:15 06/21/24 11:32 Temperature Pulse Rate 98 89 97 Respiratory Rate 21 H 19 20 Blood Pressure Pulse Oximetry 97 Oxygen Delivery 06/21/24 12:35 06/21/24 14:00 06/21/24 16:00 Temperature 100.6 F H Pulse Rate 101 H 101 H 96 Respiratory Rate 22 H Blood Pressure 162/79 H Pulse Oximetry 98 Oxygen Delivery 06/21/24 16:00 06/21/24 18:00 06/21/24 19:35 Temperature 100.9 F H 100.8 F H Pulse Rate 116 H 116 H 99 Respiratory Rate 20 16 Blood Pressure 112/85 153/73 H Pulse Oximetry 94 95 Oxygen Delivery 06/21/24 20:00 06/21/24 20:00 06/21/24 22:00 Temperature Pulse Rate 120 H 120 H 120 H Respiratory Rate 16 Blood Pressure Pulse Oximetry 95 Oxygen Delivery Room Air 06/21/24 23:56 06/22/24 00:00 06/22/24 00:00 Temperature 98.4 F Pulse Rate 101 H 120 H 120 H Respiratory Rate 20 20 Blood Pressure 130/94 H Pulse Oximetry 95 Oxygen Delivery Room Air 06/22/24 01:42 06/22/24 03:51 06/22/24 04:00 Temperature 98.3 F Pulse Rate 112 H 89 112 H Respiratory Rate 20 22 H Blood Pressure 146/64 H Pulse Oximetry 95 Oxygen Delivery Room Air 06/22/24 04:00 06/22/24 06:00 06/22/24 08:14 Temperature 99.1 F Pulse Rate 112 H 114 H 94 Respiratory Rate 23 H Blood Pressure 142/69 H Pulse Oximetry 95 Oxygen Delivery Intake/Output Intake/Output: Intake & Output 06/19/24 06/20/24 06/21/24 06/22/24 23:59 23:59 23:59 23:59 Intake Total 200 991.7 Output Total 950 920 Balance -750 71.7 Meds/Results Medications: Active Medications Generic Name Dose Route Start Last Admin Trade Name Freq PRN Reason Stop Dose Admin Acetaminophen 650 mg 06/21/24 17:07 Acetaminophen 650 Mg Suppository RECTAL Q6H PRN Mild Pain (1-3) or Fever Acetaminophen 650 mg 06/21/24 17:07 Acetaminophen 325 Mg Tablet PO Q4H PRN Mild Pain (1-3) or Fever Al Hydrox/Mg Hydrox/Simethicone 30 ml 06/21/24 17:08 Mag Hydrox/Al Hydrox/Simeth 30 Ml Udc PO Q6H PRN Indigestion Aspirin 81 mg 06/22/24 09:00 Aspirin 81 Mg Enteric Tablet PO QAM [facility] Atenolol 50 mg 06/22/24 09:00 Atenolol 50 Mg Tablet PO QAM [facility] Atorvastatin Calcium 20 mg 06/22/24 09:00 Atorvastatin 20 Mg Tablet PO DAILY [facility] Cyanocobalamin 500 mcg 06/22/24 09:00 Cyanocobalamin 500 Mcg Tablet PO QAM [facility] Dextrose 12.5 gm 06/21/24 15:42 Dextrose 50% 25 Gm/50 Ml Syringe IV PUSH PRN PRN Hypoglycemia Protocol Docusate Sodium 100 mg 06/21/24 17:08 Docusate Sodium 100 Mg Capsule PO Q12H PRN Constipation Finasteride 5 mg 06/22/24 09:00 Finasteride 5 Mg Tablet PO QAM [facility] Glucagon 1 mg 06/21/24 15:42 Glucagon For Inj 1 Mg Vial IM PRN PRN Hypoglycemia Protocol Glucose 15 gm 06/21/24 15:42 Glucose Oral Gel 15 Gm Of Glucse In 37.5 Gm Tube PO PRN PRN Hypoglycemia Protocol Ceftriaxone Sodium 1 gm in 50 mls @ 100 mls/hr 06/22/24 09:00 Rocephin 1 Gm/Ns 50 Ml IVPB QAM [facility] Dextrose 1,000 mls @ 100 mls/hr 06/21/24 15:42 Dextrose 5% 1,000 Ml IVPB PRN PRN Hypoglycemia Protocol Losartan Potassium 100 mg 06/22/24 09:00 Losartan Potassium 100 Mg Tablet PO [facility] Pantoprazole Sodium 40 mg 06/22/24 09:00 Pantoprazole 40 Mg Tablet PO [facility] Vitamin D 2,000 units 06/22/24 09:00 Cholecalciferol 1,000 [facility] Results: ITS Impressions Head CT 06/21/24 10:27 IMPRESSION: 1. Normal aging brain. Abdomen/Pelvis CT 06/21/24 12:03 IMPRESSION: 1. Cholelithiasis. 2. No evidence of appendicitis, diverticulitis or intestinal obstruction. No renal stones. 3. Sliding hiatus hernia. 4. Enlarged prostate Labs Labs: Laboratory Results - last 24 hr 06/21/24 06/21/24 06/21/24 08:22 08:26 08:27 WBC 7.6 RBC 3.12 L Hgb 10.4 L Hct 30.5 L MCV 97.8 MCH 33.3 MCHC 34.1 RDW 15.9 H Plt Count 153 MPV 9.8 Immature Gran % (Auto) 0.5 Neut % (Auto) 81.9 H Lymph % (Auto) 11.0 L [place] % (Auto) 5.7 Eos % (Auto) 0.8 Baso % (Auto) 0.1 L Lymph # (Auto) 0.83 L [place] # (Auto) 0.4 Eos # (Auto) 0.1 Baso # (Auto) 0.0 Abs Immat Gran (auto) 0.04 H Absolute Neuts (auto) 6.2 Absolute Nucleated RBC 0.000 Nucleated RBC % 0.0 PT 14.4 INR 1.1 APTT 42.1 H Sodium 138 Potassium 3.3 L Chloride 104 Carbon Dioxide 29 Anion Gap 5 BUN 19 D Creatinine 1.10 Estim Creat Clear Calc 45 Estimated GFR > 60 Glucose 141 H POC Capillary Glucose Calcium 5.7 L* Total Bilirubin 2.6 H AST 36 ALT 17 Alkaline Phosphatase 101 Total Protein 8.0 Albumin 4.4 Urine Color Yellow Urine Appearance Cloudy H Urine pH 5.5 Ur Specific [place] 1.017 Urine Protein 1+ H Urine Glucose (UA) Negative Urine Ketones Trace H Ur Blood (Man) 1+ H Urine Nitrate Negative Urine Bilirubin Negative Urine Urobilinogen 2.0 H Leukocyte Esterase Rfl 3+ H Urine RBC 11-20 H Urine WBC >100 H Ur Squamous Epith Cells None seen Urine Bacteria 4+ Urine Casts 0-2 Influenza A (RT-PCR) Negative Influenza B (RT-PCR) Negative RSV (RT-PCR) Negative SARS-CoV-2 RNA (RT-PCR) Negative 06/21/24 06/21/24 06/22/24 18:13 18:50 00:51 WBC RBC Hgb Hct MCV MCH MCHC RDW Plt Count MPV Immature Gran % (Auto) Neut % (Auto) Lymph % (Auto) [place] % (Auto) Eos % (Auto) Baso % (Auto) Lymph # (Auto) [place] # (Auto) Eos # (Auto) Baso # (Auto) Abs Immat Gran (auto) Absolute Neuts (auto) Absolute Nucleated RBC Nucleated RBC % PT INR APTT Sodium Potassium Chloride Carbon Dioxide Anion Gap BUN Creatinine Estim Creat Clear Calc Estimated GFR Glucose POC Capillary Glucose 104 118 H Calcium 5.4 L* Total Bilirubin AST ALT Alkaline Phosphatase Total Protein Albumin Urine Color Urine Appearance Urine pH Ur Specific [place] Urine Protein Urine Glucose (UA) Urine Ketones Ur Blood (Man) Urine Nitrate Urine Bilirubin Urine Urobilinogen Leukocyte Esterase Rfl Urine RBC Urine WBC Ur Squamous Epith Cells Urine Bacteria Urine Casts Influenza A (RT-PCR) Influenza B (RT-PCR) RSV (RT-PCR) SARS-CoV-2 RNA (RT-PCR)
[2024-06-22] MEDS: ASPIRIN 81 MG ENTERIC TABLET PO (08:30)
[2024-06-22] MEDS: atenoloL 50 MG TABLET PO (08:30)
[2024-06-22] MEDS: ATORVASTATIN 20 MG TABLET PO (08:41)
[2024-06-22] MEDS: CHOLECALCIFEROL 1,000 UNITS TABLET 2000 UNITS PO (08:41)
[2024-06-22] MEDS: PANTOPRAZOLE 40 MG TABLET PO (08:41)
[2024-06-22] MEDS: LOSARTAN POTASSIUM 100 MG TABLET PO (08:41)
[2024-06-22] MEDS: FINASTERIDE 5 MG TABLET PO (08:42)
[2024-06-22] MEDS: CYANOCOBALAMIN 500 MCG TABLET PO (08:42)
[2024-06-22 08:50] LABS: Alanine Aminotransferase 31 U/L (6-50); Albumin Level 3.5 g/dL (3.5-5.1); Alkaline Phosphatase 75 U/L (38-126); Anion Gap 4 mmol/L (4-12); Aspartate Amino Transferase 154 U/L (17-59); Bilirubin,Total 2.9 mg/dL (0.2-1.3); Blood Urea Nitrogen 14 mg/dL (9-20); Calcium 5.7 mg/dL (8.4-10.2); Carbon Dioxide 27 mmol/L (22-30); Chloride 108 mmol/L (98-107); Estimated CRCL calculation 41 ml/min; Estimated Glomerular Filt Rate > 60; Glucose 109 mg/dL (65-110); Magnesium 0.5 mg/dL (1.6-2.3); Phosphorus 3.8 mg/dL (2.5-4.5); Potassium 3.5 mmol/L (3.4-5.0); Sodium 139 mmol/L (137-145)
[2024-06-22 09:05] LABS: Basophils Percent Auto 0.3 % (0.2-1.2); Eosinophils Absolute Auto 0.1 K/mm3 (0-0.3); Eosinophils Percent Auto 1.4 % (0-4.4); Hematocrit 27.3 % (42.0-52.0); Hemoglobin 9.5 g/dL (14.0-18.0); Immature Granulocyte Absolute 0.04 K/mm3 (0.00-0.031); Immature Granulocyte Percent A 0.5 % (0-0.5); Lymphocytes Absolute Auto 0.87 K/mm3 (0.9-3.2); Lymphocytes Percent Auto 11.4 % (18.3-44.2); Mean Corpuscular HGB Conc 34.8 g/dl (32-36); Mean Corpuscular Hemoglobin 33.9 pg (26-34); Mean Corpuscular Volume 97.5 fl (80-100); Mean Platelet Volume 10.5 fl (7.4-10.4); Monocytes Absolute Auto 0.6 K/mm3 (0.1-0.6); Monocytes Percent Auto 7.3 % (2.6-8.5); Neutrophils Percent Auto 79.1 % (45.5-73.1); Platelet Count Result 132 k/mm3 (150-375); Red Cell Distribution Width 15.6 % (11.5-14.5); White Blood Count 7.6 K/mm3 (4.5-10.0)
[2024-06-22] MEDS: SODIUM CHLORIDE 0.9% IV 1,000 ML 10 ML (09:59)
[2024-06-22] MEDS: CALCIUM GLUC 2,000 MG/NS 100ML 2,000 MG/100 ML BAG 100 MG IVPB ×2 (09:59→18:35)
[2024-06-22 10:38] LABS: Parathyroid Intact 20.9 pg/mL (14.5-75.2)
[2024-06-22] MEDS: CALCIUM/VITAMIN D 500 MG/5 MCG (200 I.U.) TABLET PO ×2 (11:02→16:31)
[2024-06-22] MEDS: MAGNESIUM SULF 2 GM/WATER 50ML 2 GM/50 ML BAG IVPB ×2 (11:04→19:46)
[2024-06-22 11:06] LABS: Vitamin D 25 Hydroxy 46.7 ng/mL
[2024-06-22 11:39] LABS: Glucose Point of Care 129 mg/dl (65-105)
[2024-06-22 17:09] LABS: Anion Gap 7 mmol/L (4-12); Blood Urea Nitrogen 16 mg/dL (9-20); Calcium 6.2 mg/dL (8.4-10.2); Carbon Dioxide 25 mmol/L (22-30); Chloride 107 mmol/L (98-107); Estimated CRCL calculation 41 ml/min; Estimated Glomerular Filt Rate > 60; Glucose 119 mg/dL (65-110); Magnesium 1.1 mg/dL (1.6-2.3); Potassium 3.1 mmol/L (3.4-5.0); Sodium 139 mmol/L (137-145)
--- NOTE | 2024-06-22 18:30 | PC.NURSE ---
This patient, Naeem Pitt, was received from IMU on 06/22/24 at 1830. Patient/family oriented to unit policies and routines
[2024-06-22] MEDS: POTASSIUM CHLORIDE 20 MEQ ER TABLET 40 MEQ PO (18:35)
[2024-06-23 04:16] VITALS: BP 170/79; PULSE 77; RESP 18; TEMP 36.4; O2SAT 95
[2024-06-23 08:03] VITALS: O2SAT 94
[2024-06-23 08:14] VITALS: BP 109/53
[2024-06-23 08:38] LABS: Basophils Percent Auto 0.4 % (0.2-1.2); Eosinophils Absolute Auto 0.3 K/mm3 (0-0.3); Eosinophils Percent Auto 3.3 % (0-4.4); Hematocrit 28.8 % (42.0-52.0); Hemoglobin 10.1 g/dL (14.0-18.0); Immature Granulocyte Absolute 0.04 K/mm3 (0.00-0.031); Immature Granulocyte Percent A 0.5 % (0-0.5); Lymphocytes Absolute Auto 1.15 K/mm3 (0.9-3.2); Lymphocytes Percent Auto 14.2 % (18.3-44.2); Mean Corpuscular HGB Conc 35.1 g/dl (32-36); Mean Corpuscular Hemoglobin 34.2 pg (26-34); Mean Corpuscular Volume 97.6 fl (80-100); Mean Platelet Volume 9.9 fl (7.4-10.4); Monocytes Absolute Auto 0.6 K/mm3 (0.1-0.6); Monocytes Percent Auto 7.8 % (2.6-8.5); Neutrophils Percent Auto 73.8 % (45.5-73.1); Platelet Count Result 157 k/mm3 (150-375); Red Blood Count 2.95 M/mm3 (4.6-6.20); Red Cell Distribution Width 16.1 % (11.5-14.5); White Blood Count 8.1 K/mm3 (4.5-10.0)
[2024-06-23] MEDS: ATORVASTATIN 20 MG TABLET PO (08:47)
[2024-06-23] MEDS: FINASTERIDE 5 MG TABLET PO (08:47)
[2024-06-23] MEDS: PANTOPRAZOLE 40 MG TABLET PO (08:47)
[2024-06-23] MEDS: ASPIRIN 81 MG ENTERIC TABLET PO (08:47)
[2024-06-23] MEDS: CALCIUM/VITAMIN D 500 MG/5 MCG (200 I.U.) TABLET PO ×2 (08:47→17:41)
[2024-06-23] MEDS: CHOLECALCIFEROL 1,000 UNITS TABLET 2000 UNITS PO (08:47)
[2024-06-23] MEDS: CYANOCOBALAMIN 500 MCG TABLET PO (08:47)
[2024-06-23] MEDS: LOSARTAN POTASSIUM 100 MG TABLET PO (08:47)
[2024-06-23 08:52] LABS: Alanine Aminotransferase 43 U/L (6-50); Albumin Level 3.8 g/dL (3.5-5.1); Alkaline Phosphatase 70 U/L (38-126); Anion Gap 5 mmol/L (4-12); Aspartate Amino Transferase 170 U/L (17-59); Bilirubin,Total 2.6 mg/dL (0.2-1.3); Blood Urea Nitrogen 22 mg/dL (9-20); Calcium 6.9 mg/dL (8.4-10.2); Carbon Dioxide 26 mmol/L (22-30); Chloride 108 mmol/L (98-107); Estimated CRCL calculation 37 ml/min; Estimated Glomerular Filt Rate 57; Glucose 172 mg/dL (65-110); Magnesium 1.6 mg/dL (1.6-2.3); Potassium 3.8 mmol/L (3.4-5.0); Sodium 139 mmol/L (137-145)
[2024-06-23 09:36] VITALS: PULSE 90
[2024-06-23] MEDS: atenoloL 50 MG TABLET PO (09:36)
--- NOTE | 2024-06-23 12:51 | P.PNIM_ITS ---
Progress Note: A&P Assessment and Plan (1) Sepsis: Qualifiers: Sepsis type: sepsis due to unspecified organism Sepsis acute organ dysfunction status: with acute organ dysfunction Severe sepsis acute organ dysfunction type: encephalopathy Severe sepsis shock status: without septic shock Qualified Code(s): A41.9 - Sepsis, unspecified organism; R65.20 - Severe sepsis without septic shock; G93.41 - Metabolic encephalopathy Code(s): A41.9 - Sepsis, unspecified organism Status: Acute (2) Acute UTI: Code(s): N39.0 - Urinary tract infection, site not specified Status: Acute (3) Acute metabolic encephalopathy: Code(s): G93.41 - Metabolic encephalopathy Status: Acute (4) Hypocalcemia: Code(s): E83.51 - Hypocalcemia Status: Acute (5) BPH (benign prostatic hyperplasia): Qualifiers: Lower urinary tract symptom presence: symptoms present Lower urinary tract symptom detail: urinary frequency Qualified Code(s): N40.1 - Benign prostatic hyperplasia with lower urinary tract symptoms; R35.0 - Frequency of micturition Code(s): N40.0 - Benign prostatic hyperplasia without lower urinary tract symptoms Status: Acute (6) GERD (gastroesophageal reflux disease): Qualifiers: Esophagitis presence: esophagitis presence not specified Qualified Code(s): K21.9 - Gastro-esophageal reflux disease without esophagitis Code(s): K21.9 - Gastro-esophageal reflux disease without esophagitis Status: Acute (7) Diabetes type 2, controlled: Qualifiers: Diabetes mellitus intermediate insulin use: without long lines operator use Diabetes mellitus complication status: without complication Qualified Code(s): E11.9 - Type 2 diabetes mellitus without complications Code(s): E11.9 - Type 2 diabetes mellitus without complications Status: Acute (8) Hypertension: Qualifiers: Hypertension type: essential hypertension Qualified Code(s): I10 - Essential (primary) hypertension Code(s): I10 - Essential (primary) hypertension Status: Acute (9) Acute hypokalemia: Code(s): E87.6 - Hypokalemia Status: Acute Plan This is an 89-year-old male who presents to the ED for altered mental status. Patient typically is alert and oriented x4 at baseline and lives at home With his . stated that patient woke up this morning and was more confused and agitated on cooperative with transportation and exam. On ED arrival he was febrile at 100.9 tachycardic blood pressure was adequate. CT head was negative for any acute intracranial abnormality. Laboratory workup revealed normal WBC of 7.6 mild anemia 10.4 mild hypokalemia at 3.3. Calcium was low at 5.7 with normal albumin. LFT was normal except for total bilirubin of 2.6. Urinalysis was positive for UTI. Influenza a B RSV COVID swab was negative.CT abdomen pelvis with cholelithiasis with no evidence of appendicitis diverticulitis or a intestinal obstruction. No renal stones. Sliding hiatal hernia and enlarged prostate was also noted. Patient diagnosed with sepsis likely due to acute UTI associated with acute metabolic encephalopathy. Patient started on Rocephin. Pancultured. Follow blood culture. Also received IV fluid resuscitation. urine culture positive for E coli await sensitivity Agitation altered mental status received a dose of Zyprexa in the ER Along with lorazepam. Repeat dosing of Zyprexa overnight as well. He is more lucid today and remains stable Hypokalemia/ hypocalcemia: Replace and monitor Hypertension losartan hold hydrochlorothiazide GERD on omeprazole Type 2 diabetes on metformin at home which is held. Continue Accu-Chek monitoring BPH on fine S tried DVT prophylaxis Lovenox Code status full code. Subjective Date/time seen: 06/23/24 12:51 Interval history: no overnight events. No new complaints. Doing well. Review of Systems Review of Systems: All systems reviewed & are unremarkable except as noted in HPI and below Exam Narrative: APPEARANCE: Well-appearing, calm, cooperative, HEAD: normocephalic, atraumatic. EYES: PERRLA/EOMI, conjunctivae clear. NOSE: Normal no drainage NECK: Supple. No adenopathy, no masses. RESPIRATORY: Airway patent, respirations nonlabored. Clear to auscultation bilaterally, no rales, rhonchi, wheezing. CARDIOVASCULAR: Regular rate and rhythm without murmurs rubs or gallops. ABDOMINAL: Soft, nontender, nondistended, normal bowel sounds MUSCULOSKELETAL: Moves all extremities. Strength/ROM intact, No edema, No calf tenderness. NEURO: Alert. Oriented to time place and person Cranial nerves II through XII intact. SKIN: Punctate ecchymotic rash across chest Objective Data Vital Signs Vital Signs: Vital Signs - 24 hr 06/22/24 14:00 06/22/24 16:00 06/22/24 16:22 Temperature 98.4 F Pulse Rate 81 80 80 Respiratory Rate 18 Blood Pressure 137/55 L Pulse Oximetry 93 Oxygen Delivery Fraction of Inspired Oxygen 06/22/24 20:00 06/22/24 20:55 06/23/24 04:16 Temperature 98 F 97.6 F Pulse Rate 92 77 Respiratory Rate 20 18 Blood Pressure 133/62 170/79 H Pulse Oximetry 93 95 Oxygen Delivery Room Air Fraction of Inspired Oxygen 06/23/24 08:03 06/23/24 08:14 06/23/24 09:11 Temperature Pulse Rate Respiratory Rate Blood Pressure 109/53 L Pulse Oximetry 94 Oxygen Delivery Room Air Room Air Fraction of Inspired Oxygen 21 06/23/24 09:36 06/23/24 09:41 Temperature Pulse Rate 90 Respiratory Rate Blood Pressure Pulse Oximetry Oxygen Delivery Room Air Fraction of Inspired Oxygen Intake/Output Intake/Output: Intake & Output 06/20/24 06/21/24 06/22/24 06/23/24 23:59 23:59 23:59 23:59 Intake Total 200 1521.7 680 Output Total 950 1470 500 Balance -750 51.7 180 Meds/Results Medications: Active Medications Generic Name Dose Route Start Last Admin Trade Name Freq PRN Reason Stop Dose Admin Acetaminophen 650 mg 06/21/24 17:07 Acetaminophen 650 Mg Suppository RECTAL Q6H PRN Mild Pain (1-3) or Fever Acetaminophen 650 mg 06/21/24 17:07 Acetaminophen 325 Mg Tablet PO Q4H PRN Mild Pain (1-3) or Fever Al Hydrox/Mg Hydrox/Simethicone 30 ml 06/21/24 17:08 Mag Hydrox/Al Hydrox/Simeth 30 Ml Udc PO Q6H PRN Indigestion Aspirin 81 mg 06/22/24 09:00 06/23/24 08:47 Aspirin 81 Mg Enteric Tablet PO 81 mg QAM CONNIE Administration Atenolol 50 mg 06/22/24 09:00 06/23/24 09:36 Atenolol 50 Mg Tablet PO 50 mg QAM CONNIE Administration Atorvastatin Calcium 20 mg 06/22/24 09:00 06/23/24 08:47 Atorvastatin 20 Mg Tablet PO 20 mg DAILY CONNIE Administration Calcium Carbonate 500 mg 06/22/24 09:05 06/23/24 08:47 Calcium/Vitamin D 500 Mg/5 Mcg (200 I.U.) Tablet PO 500 mg BIDWM CONNIE Administration Cyanocobalamin 500 mcg 06/22/24 09:00 06/23/24 08:47 Cyanocobalamin 500 Mcg Tablet PO 500 mcg QAM CONNIE Administration Dextrose 12.5 gm 06/21/24 15:42 Dextrose 50% 25 Gm/50 Ml Syringe IV PUSH PRN PRN Hypoglycemia Protocol Docusate Sodium 100 mg 06/21/24 17:08 Docusate Sodium 100 Mg Capsule PO Q12H PRN Constipation Finasteride 5 mg 06/22/24 09:00 06/23/24 08:47 Finasteride 5 Mg Tablet PO 5 mg QAM CONNIE Administration Glucagon 1 mg 06/21/24 15:42 Glucagon For Inj 1 Mg Vial IM PRN PRN Hypoglycemia Protocol Glucose 15 gm 06/21/24 15:42 Glucose Oral Gel 15 Gm Of Glucse In 37.5 Gm Tube PO PRN PRN Hypoglycemia Protocol Ceftriaxone Sodium 1 gm in 50 mls @ 100 mls/hr 06/22/24 09:00 06/23/24 08:46 Rocephin 1 Gm/Ns 50 Ml IVPB 100 mls/hr QAM CONNIE Administration Dextrose 1,000 mls @ 100 mls/hr 06/21/24 15:42 Dextrose 5% 1,000 Ml IVPB PRN PRN Hypoglycemia Protocol Losartan Potassium 100 mg 06/22/24 09:00 06/23/24 08:47 Losartan Potassium 100 Mg Tablet PO 100 mg QAM CONNIE Administration Pantoprazole Sodium 40 mg 06/22/24 09:00 06/23/24 08:47 Pantoprazole 40 Mg Tablet PO 40 mg QAM CONNIE Administration Vitamin D 2,000 units 06/22/24 09:00 06/23/24 08:47 Cholecalciferol 1,000 Units Tablet PO 2,000 units QAM CONNIE Administration Radiology Results: ITS Impressions Head CT 06/21/24 10:27 IMPRESSION: 1. Normal aging brain. Abdomen/Pelvis CT 06/21/24 12:03 IMPRESSION: 1. Cholelithiasis. 2. No evidence of appendicitis, diverticulitis or intestinal obstruction. No renal stones. 3. Sliding hiatus hernia. 4. Enlarged prostate Labs Labs: Laboratory Results - last 24 hr 06/22/24 06/23/24 16:41 08:33 WBC 8.1 RBC 2.95 L Hgb 10.1 L Hct 28.8 L MCV 97.6 MCH 34.2 H MCHC 35.1 RDW 16.1 H Plt Count 157 MPV 9.9 Immature Gran % (Auto) 0.5 Neut % (Auto) 73.8 H Lymph % (Auto) 14.2 L [place] % (Auto) 7.8 Eos % (Auto) 3.3 Baso % (Auto) 0.4 Lymph # (Auto) 1.15 [place] # (Auto) 0.6 Eos # (Auto) 0.3 Baso # (Auto) 0.0 Abs Immat Gran (auto) 0.04 H Absolute Neuts (auto) 6.0 Absolute Nucleated RBC 0.000 Nucleated RBC % 0.0 Sodium 139 139 Potassium 3.1 L 3.8 Chloride 107 108 H Carbon Dioxide 25 26 Anion Gap 7 5 BUN 16 22 H Creatinine 1.10 1.20 Estim Creat Clear Calc 41 37 Estimated GFR > 60 57 L Glucose 119 H 172 H Calcium 6.2 L 6.9 L Magnesium 1.1 L 1.6 Total Bilirubin 2.6 H AST 170 H ALT 43 Alkaline Phosphatase 70 Total Protein 7.0 Albumin 3.8 TSH (Reflex) 1.950
[2024-06-23] MEDS: CALCIUM GLUC 2,000 MG/NS 100ML 2,000 MG/100 ML BAG 100 MG IVPB (13:19)
[2024-06-23 13:59] VITALS: BP 103/43; PULSE 80; RESP 16; TEMP 36.6; O2SAT 98
[2024-06-23 14:03] LABS: Ionized Calcium 3.6 mg/dL (4.7-5.5)
[2024-06-23] MEDS: MAGNESIUM SULF 2 GM/WATER 50ML 2 GM/50 ML BAG IVPB (14:57)
[2024-06-24] VITALS: BP 110/47; PULSE 63; RESP 18; TEMP 36.1; O2SAT 98
[2024-06-24 06:21] LABS: Basophils Percent Auto 0.2 % (0.2-1.2); Eosinophils Absolute Auto 0.5 K/mm3 (0-0.3); Eosinophils Percent Auto 8.6 % (0-4.4); Hematocrit 24.7 % (42.0-52.0); Hemoglobin 8.6 g/dL (14.0-18.0); Immature Granulocyte Absolute 0.02 K/mm3 (0.00-0.031); Immature Granulocyte Percent A 0.3 % (0-0.5); Lymphocytes Absolute Auto 1.25 K/mm3 (0.9-3.2); Lymphocytes Percent Auto 21.1 % (18.3-44.2); Mean Corpuscular HGB Conc 34.8 g/dl (32-36); Mean Corpuscular Hemoglobin 33.6 pg (26-34); Mean Corpuscular Volume 96.5 fl (80-100); Mean Platelet Volume 10.3 fl (7.4-10.4); Monocytes Absolute Auto 0.6 K/mm3 (0.1-0.6); Monocytes Percent Auto 9.3 % (2.6-8.5); Neutrophils Absolute Auto 3.6 K/mm3 (1.3-6.7); Neutrophils Percent Auto 60.5 % (45.5-73.1); Platelet Count Result 135 k/mm3 (150-375); Red Blood Count 2.56 M/mm3 (4.6-6.20); Red Cell Distribution Width 16.1 % (11.5-14.5); White Blood Count 5.9 K/mm3 (4.5-10.0)
[2024-06-24 06:34] LABS: Alanine Aminotransferase 45 U/L (6-50); Alkaline Phosphatase 71 U/L (38-126); Anion Gap 0 mmol/L (4-12); Aspartate Amino Transferase 101 U/L (17-59); Bilirubin,Total 1.7 mg/dL (0.2-1.3); Blood Urea Nitrogen 28 mg/dL (9-20); Calcium 7.2 mg/dL (8.4-10.2); Carbon Dioxide 27 mmol/L (22-30); Chloride 109 mmol/L (98-107); Estimated CRCL calculation 32 ml/min; Estimated Glomerular Filt Rate 48; Glucose 124 mg/dL (65-110); Magnesium 1.8 mg/dL (1.6-2.3); Potassium 3.7 mmol/L (3.4-5.0); Sodium 136 mmol/L (137-145)
[2024-06-24 08:43] VITALS: BP 144/55; PULSE 64; RESP 16; TEMP 36.4; O2SAT 95
[2024-06-24 09:40] VITALS: PULSE 64
[2024-06-24] MEDS: LOSARTAN POTASSIUM 100 MG TABLET PO (09:40)
[2024-06-24] MEDS: CYANOCOBALAMIN 500 MCG TABLET PO (09:40)
[2024-06-24] MEDS: ATORVASTATIN 20 MG TABLET PO (09:40)
[2024-06-24] MEDS: PANTOPRAZOLE 40 MG TABLET PO (09:40)
[2024-06-24] MEDS: FINASTERIDE 5 MG TABLET PO (09:40)
[2024-06-24] MEDS: atenoloL 50 MG TABLET PO (09:40)
[2024-06-24] MEDS: CHOLECALCIFEROL 1,000 UNITS TABLET 2000 UNITS PO (09:40)
[2024-06-24] MEDS: ASPIRIN 81 MG ENTERIC TABLET PO (09:41)
[2024-06-24] MEDS: CALCIUM/VITAMIN D 500 MG/5 MCG (200 I.U.) TABLET PO (09:41)
[2024-06-24] MEDS: CALCIUM GLUC 2,000 MG/NS 100ML 2,000 MG/100 ML BAG 100 MG IVPB (10:13)
--- NOTE | 2024-06-24 11:17 | P.PNIM_ITS ---
Progress Note: A&P Assessment and Plan (1) Sepsis: Qualifiers: Sepsis type: sepsis due to unspecified organism Sepsis acute organ dysfunction status: with acute organ dysfunction Severe sepsis acute organ dysfunction type: encephalopathy Severe sepsis shock status: without septic shock Qualified Code(s): A41.9 - Sepsis, unspecified organism; R65.20 - Severe sepsis without septic shock; G93.41 - Metabolic encephalopathy Code(s): A41.9 - Sepsis, unspecified organism Status: Acute (2) Acute UTI: Code(s): N39.0 - Urinary tract infection, site not specified Status: Acute (3) Acute metabolic encephalopathy: Code(s): G93.41 - Metabolic encephalopathy Status: Acute (4) Hypocalcemia: Code(s): E83.51 - Hypocalcemia Status: Acute (5) BPH (benign prostatic hyperplasia): Qualifiers: Lower urinary tract symptom presence: symptoms present Lower urinary tract symptom detail: urinary frequency Qualified Code(s): N40.1 - Benign prostatic hyperplasia with lower urinary tract symptoms; R35.0 - Frequency of micturition Code(s): N40.0 - Benign prostatic hyperplasia without lower urinary tract symptoms Status: Acute (6) GERD (gastroesophageal reflux disease): Qualifiers: Esophagitis presence: esophagitis presence not specified Qualified Code(s): K21.9 - Gastro-esophageal reflux disease without esophagitis Code(s): K21.9 - Gastro-esophageal reflux disease without esophagitis Status: Acute (7) Diabetes type 2, controlled: Qualifiers: Diabetes mellitus [facility] insulin use: without terminal gauger use Diabetes mellitus complication status: without complication Qualified Code(s): E11.9 - Type 2 diabetes mellitus without complications Code(s): E11.9 - Type 2 diabetes mellitus without complications Status: Acute (8) Hypertension: Qualifiers: Hypertension type: essential hypertension Qualified Code(s): I10 - Essential (primary) hypertension Code(s): I10 - Essential (primary) hypertension Status: Acute (9) Acute hypokalemia: Code(s): E87.6 - Hypokalemia Status: Acute Plan This is an 89-year-old male who presents to the ED for altered mental status. Patient typically is alert and oriented x4 at baseline and lives at home With his . stated that patient woke up this morning and was more confused and agitated uncooperative with transportation and exam. On ED arrival he was febrile at 100.9 tachycardic blood pressure was adequate. CT head was negative for any acute intracranial abnormality. Laboratory workup revealed normal WBC of 7.6 mild anemia 10.4 mild hypokalemia at 3.3. Calcium was low at 5.7 with normal albumin. LFT was normal except for total bilirubin of 2.6. Urinalysis was positive for UTI. Influenza a B RSV COVID swab was negative.CT abdomen pelvis with cholelithiasis with no evidence of appendicitis diverticulitis or a intestinal obstruction. No renal stones. Sliding hiatal hernia and enlarged prostate was also noted. Patient diagnosed with sepsis likely due to acute UTI associated with acute metabolic encephalopathy. Patient started on Rocephin. Pancultured. Follow blood culture. Also received IV fluid resuscitation. urine culture positive for E coli Sensitive to ceftriaxone changed to oral at discharge Agitation altered mental status received a dose of Zyprexa in the ER Along with lorazepam. Repeat dosing of Zyprexa overnight as well. He is more lucid today and remains stable. Intermittently hallucinating. Likely has underlying dementia. Hypokalemia/ hypocalcemia: Replace and monitor Hypertension losartan hold hydrochlorothiazide GERD on omeprazole Type 2 diabetes on metformin at home which is held. Continue Accu-Chek monitoring BPH on fine S tried DVT prophylaxis Lovenox Code status full code. Subjective Date/time seen: 06/24/24 11:17 Interval history: no new complaints. Feels good. Per nursing staff still hallucinating. Review of Systems Review of Systems: All systems reviewed & are unremarkable except as noted in HPI and below Exam Narrative: APPEARANCE: Well-appearing, calm, cooperative, HEAD: normocephalic, atraumatic. EYES: PERRLA/EOMI, conjunctivae clear. NOSE: Normal no drainage NECK: Supple. No adenopathy, no masses. RESPIRATORY: Airway patent, respirations nonlabored. Clear to auscultation bilaterally, no rales, rhonchi, wheezing. CARDIOVASCULAR: Regular rate and rhythm without murmurs rubs or gallops. ABDOMINAL: Soft, nontender, nondistended, normal bowel sounds MUSCULOSKELETAL: Moves all extremities. Strength/ROM intact, No edema, No calf tenderness. NEURO: Alert. Oriented to time place and person Cranial nerves II through XII intact. SKIN: Punctate ecchymotic rash across chest Objective Data Vital Signs Vital Signs: Vital Signs - 24 hr 06/23/24 13:59 06/23/24 20:00 06/24/24 00:00 Temperature 97.8 F 97.0 F L Pulse Rate 80 63 Respiratory Rate 16 18 Blood Pressure 103/43 L 110/47 L Pulse Oximetry 98 98 Oxygen Delivery Room Air 06/24/24 08:43 06/24/24 09:40 Temperature 97.6 F Pulse Rate 64 64 Respiratory Rate 16 Blood Pressure 144/55 H Pulse Oximetry 95 Oxygen Delivery Intake/Output Intake/Output: Intake & Output 06/21/24 06/22/24 06/23/24 06/24/24 23:59 23:59 23:59 23:59 Intake Total 200 1521.7 1080 240 Output Total 950 1470 700 700 Balance -750 51.7 380 -460 Meds/Results Medications: Active Medications Generic Name Dose Route Start Last Admin Trade Name Freq PRN Reason Stop Dose Admin Acetaminophen 650 mg 06/21/24 17:07 Acetaminophen 650 Mg Suppository RECTAL Q6H PRN Mild Pain (1-3) or Fever Acetaminophen 650 mg 06/21/24 17:07 Acetaminophen 325 Mg Tablet PO Q4H PRN Mild Pain (1-3) or Fever Al Hydrox/Mg Hydrox/Simethicone 30 ml 06/21/24 17:08 Mag Hydrox/Al Hydrox/Simeth 30 Ml Udc PO Q6H PRN Indigestion Aspirin 81 mg 06/22/24 09:00 06/24/24 09:41 Aspirin 81 Mg Enteric Tablet PO 81 mg QAM CONNIE Administration Atenolol 50 mg 06/22/24 09:00 06/24/24 09:40 Atenolol 50 Mg Tablet PO 50 mg QAM CONNIE Administration Atorvastatin Calcium 20 mg 06/22/24 09:00 06/24/24 09:40 Atorvastatin 20 Mg Tablet PO 20 mg DAILY CONNIE Administration Calcium Carbonate 500 mg 06/22/24 09:05 06/24/24 09:41 Calcium/Vitamin D 500 Mg/5 Mcg (200 I.U.) Tablet PO 500 mg BIDWM CONNIE Administration Cyanocobalamin 500 mcg 06/22/24 09:00 06/24/24 09:40 Cyanocobalamin 500 Mcg Tablet PO 500 mcg QAM CONNIE Administration Dextrose 12.5 gm 06/21/24 15:42 Dextrose 50% 25 Gm/50 Ml Syringe IV PUSH PRN PRN Hypoglycemia Protocol Docusate Sodium 100 mg 06/21/24 17:08 Docusate Sodium 100 Mg Capsule PO Q12H PRN Constipation Finasteride 5 mg 06/22/24 09:00 06/24/24 09:40 Finasteride 5 Mg Tablet PO 5 mg QAM CONNIE Administration Glucagon 1 mg 06/21/24 15:42 Glucagon For Inj 1 Mg Vial IM PRN PRN Hypoglycemia Protocol Glucose 15 gm 06/21/24 15:42 Glucose Oral Gel 15 Gm Of Glucse In 37.5 Gm Tube PO PRN PRN Hypoglycemia Protocol Ceftriaxone Sodium 1 gm in 50 mls @ 100 mls/hr 06/22/24 09:00 06/24/24 09:39 Rocephin 1 Gm/Ns 50 Ml IVPB 100 mls/hr QAM CONNIE Administration Dextrose 1,000 mls @ 100 mls/hr 06/21/24 15:42 Dextrose 5% 1,000 Ml IVPB PRN PRN Hypoglycemia Protocol Losartan Potassium 100 mg 06/22/24 09:00 06/24/24 09:40 Losartan Potassium 100 Mg Tablet PO 100 mg QAM CONNIE Administration Pantoprazole Sodium 40 mg 06/22/24 09:00 06/24/24 09:40 Pantoprazole 40 Mg Tablet PO 40 mg QAM CONNIE Administration Vitamin D 2,000 units 06/22/24 09:00 06/24/24 09:40 Cholecalciferol 1,000 Units Tablet PO 2,000 units QAM CONNIE Administration Radiology Results: ITS Impressions Head CT 06/21/24 10:27 IMPRESSION: 1. Normal aging brain. Abdomen/Pelvis CT 06/21/24 12:03 IMPRESSION: 1. Cholelithiasis. 2. No evidence of appendicitis, diverticulitis or intestinal obstruction. No renal stones. 3. Sliding hiatus hernia. 4. Enlarged prostate Labs Labs: Laboratory Results - last 24 hr 06/22/24 06/24/24 08:10 05:44 WBC 5.9 RBC 2.56 L Hgb 8.6 L Hct 24.7 L MCV 96.5 MCH 33.6 MCHC 34.8 RDW 16.1 H Plt Count 135 L MPV 10.3 Immature Gran % (Auto) 0.3 Neut % (Auto) 60.5 Lymph % (Auto) 21.1 [place] % (Auto) 9.3 H Eos % (Auto) 8.6 H Baso % (Auto) 0.2 Lymph # (Auto) 1.25 [place] # (Auto) 0.6 Eos # (Auto) 0.5 H Baso # (Auto) 0.0 Abs Immat Gran (auto) 0.02 Absolute Neuts (auto) 3.6 Absolute Nucleated RBC 0.000 Nucleated RBC % 0.0 Sodium 136 L Potassium 3.7 Chloride 109 H Carbon Dioxide 27 Anion Gap 0 L BUN 28 H Creatinine 1.40 H Estim Creat Clear Calc 32 Estimated GFR 48 L Glucose 124 H Calcium 7.2 L Ionized Calcium Jose A 3.6 L Magnesium 1.8 Total Bilirubin 1.7 H AST 101 H ALT 45 Alkaline Phosphatase 71 Total Protein 6.0 L Albumin 3.0 L
--- NOTE | 2024-06-24 11:48 | P.DS_ITS ---
DS: Admitting Diagnosis Discharge Date 06/24/2024 Admitting Diagnosis confusion DS: Discharge Diagnosis Discharge Diagnosis (1) Sepsis: Qualifiers: Sepsis type: sepsis due to unspecified organism Sepsis acute organ dysfunction status: with acute organ dysfunction Severe sepsis acute organ dysfunction type: encephalopathy Severe sepsis shock status: without septic shock Qualified Code(s): A41.9 - Sepsis, unspecified organism; R65.20 - Severe sepsis without septic shock; G93.41 - Metabolic encephalopathy Code(s): A41.9 - Sepsis, unspecified organism Status: Acute (2) Acute UTI: Code(s): N39.0 - Urinary tract infection, site not specified Status: Acute (3) Acute metabolic encephalopathy: Code(s): G93.41 - Metabolic encephalopathy Status: Acute (4) Hypocalcemia: Code(s): E83.51 - Hypocalcemia Status: Acute (5) BPH (benign prostatic hyperplasia): Qualifiers: Lower urinary tract symptom presence: symptoms present Lower urinary tract symptom detail: urinary frequency Qualified Code(s): N40.1 - Benign prostatic hyperplasia with lower urinary tract symptoms; R35.0 - Frequency of micturition Code(s): N40.0 - Benign prostatic hyperplasia without lower urinary tract symptoms Status: Acute (6) GERD (gastroesophageal reflux disease): Qualifiers: Esophagitis presence: esophagitis presence not specified Qualified Code(s): K21.9 - Gastro-esophageal reflux disease without esophagitis Code(s): K21.9 - Gastro-esophageal reflux disease without esophagitis Status: Acute (7) Diabetes type 2, controlled: Qualifiers: Diabetes mellitus computer terminal operator insulin use: without computer terminal operator use Diabetes mellitus complication status: without complication Qualified Code(s): E11.9 - Type 2 diabetes mellitus without complications Code(s): E11.9 - Type 2 diabetes mellitus without complications Status: Acute (8) Hypertension: Qualifiers: Hypertension type: essential hypertension Qualified Code(s): I10 - Essential (primary) hypertension Code(s): I10 - Essential (primary) hypertension Status: Acute (9) Acute hypokalemia: Code(s): E87.6 - Hypokalemia Status: Acute DS: Summary Hospital Course Hospital Course: This is an 89-year-old male who presents to the ED for altered mental status. Patient typically is alert and oriented x4 at baseline and lives at home With his . stated that patient woke up this morning and was more confused and agitated uncooperative with transportation and exam. On ED arrival he was febrile at 100.9 tachycardic blood pressure was adequate. CT head was negative for any acute intracranial abnormality. Laboratory workup revealed normal WBC of 7.6 mild anemia 10.4 mild hypokalemia at 3.3. Calcium was low at 5.7 with normal albumin. LFT was normal except for total bilirubin of 2.6. Urinalysis was positive for UTI. Influenza a B RSV COVID swab was negative.CT abdomen pelvis with cholelithiasis with no evidence of appendicitis diverticulitis or a intestinal obstruction. No renal stones. Sliding hiatal hernia and enlarged prostate was also noted. Patient diagnosed with sepsis likely due to acute UTI associated with acute metabolic encephalopathy. Patient started on Rocephin. Pancultured. Follow blood culture she remain negative. Also received IV fluid resuscitation. urine culture positive for E coli Sensitive to ceftriaxone changed to oral at discharge Agitation altered mental status received a dose of Zyprexa in the ER Along with lorazepam. Repeat dosing of Zyprexa overnight as well. subsequently became more lucid and stable requiring no further antipsychotics. he however was Intermittently hallucinating. he likely a also has underlying dementia. Continue supportive treatment Hypokalemia/ hypocalcemia: Replace and monitor . Add vitamin-D calcium supplement Hypertension losartan hold hydrochlorothiazide GERD on omeprazole Type 2 diabetes on metformin at home which is held. Continue Accu-Chek monit oring BPH on fine S tried DVT prophylaxis Lovenox Code status full code. Time Spent with Patient Time attestation: Total time spent providing and/or coordinating discharge services: 35 minutes Exam Narrative: APPEARANCE: Well-appearing, calm, cooperative, HEAD: normocephalic, atraumatic. EYES: PERRLA/EOMI, conjunctivae clear. NOSE: Normal no drainage NECK: Supple. No adenopathy, no masses. RESPIRATORY: Airway patent, respirations nonlabored. Clear to auscultation bilaterally, no rales, rhonchi, wheezing. CARDIOVASCULAR: Regular rate and rhythm without murmurs rubs or gallops. ABDOMINAL: Soft, nontender, nondistended, normal bowel sounds MUSCULOSKELETAL: Moves all extremities. Strength/ROM intact, No edema, No calf tenderness. NEURO: Alert. Oriented to time place and person Cranial nerves II through XII intact. SKIN: Punctate ecchymotic rash across chest DS: Data Data Completed and Pending Labs on day of discharge: Labs from last 24 hours 06/24/24 06/22/24 05:44 08:10 WBC 5.9 RBC 2.56 L Hgb 8.6 L Hct 24.7 L MCV 96.5 MCH 33.6 MCHC 34.8 RDW 16.1 H Plt Count 135 L MPV 10.3 Immature Gran % (Auto) 0.3 Neut % (Auto) 60.5 Lymph % (Auto) 21.1 [place] % (Auto) 9.3 H Eos % (Auto) 8.6 H Baso % (Auto) 0.2 Lymph # (Auto) 1.25 [place] # (Auto) 0.6 Eos # (Auto) 0.5 H Baso # (Auto) 0.0 Abs Immat Gran (auto) 0.02 Absolute Neuts (auto) 3.6 Absolute Nucleated RBC 0.000 Nucleated RBC % 0.0 Sodium 136 L Potassium 3.7 Chloride 109 H Carbon Dioxide 27 Anion Gap 0 L BUN 28 H Creatinine 1.40 H Estim Creat Clear Calc 32 Estimated GFR 48 L Glucose 124 H Calcium 7.2 L Ionized Calcium Jose A 3.6 L Magnesium 1.8 Total Bilirubin 1.7 H AST 101 H ALT 45 Alkaline Phosphatase 71 Total Protein 6.0 L Albumin 3.0 L Preliminary micro results at discharge 06/21/24 18:13 Blood Culture - Preliminary Blood 06/21/24 18:13 Blood Culture - Preliminary Blood Imaging Radiologist's impression: ITS Impressions Head CT 06/21/24 10:27 IMPRESSION: 1. Normal aging brain. Abdomen/Pelvis CT 06/21/24 12:03 IMPRESSION: 1. Cholelithiasis. 2. No evidence of appendicitis, diverticulitis or intestinal obstruction. No renal stones. 3. Sliding hiatus hernia. 4. Enlarged prostate Discharge Plan Discharge Attending physician on discharge: Arcadio Workman Discharging Clinician: Arcadio Workman Anticipated Discharge Date/Time: 06/24/24 11:50 Patient Disposition: Home Health Service Activity: as tolerated Diet: heart healthy and diabetic Patient Instructions: Antibiotic Form Patient Language: Romanian Stand Alone Forms: General Discharge Information Follow-up/Referrals: John Sparks DO [Primary Care Provider] - 1 Week Discharge Medications: New calcium carbonate-vitamin D3 [Oyster Shell Calcium-Vit D3] 500 mg-5 mcg (200 unit) Tablet 1 tablet PO BIDWM Qty: 60 0RF cephalexin 500 mg capsule 500 mg PO Q12H Qty: 6 0RF Continued aspirin 81 mg tablet,delayed release (DR/EC) 81 mg PO BID cholecalciferol (vitamin D3) 50 mcg (2,000 unit) capsule 50 mcg PO QAM mecobalamin (vitamin B12) 500 mcg Tablet,Chewable 500 mcg PO DAILY vitamin E 180 mg PO DAILY atorvastatin 20 mg tablet 20 mg PO DAILY finasteride 5 mg tablet 5 mg PO QAM Qty: 90 1RF Rx Instructions: TAKE 1 TABLET BY MOUTH EVERY DAY blood sugar diagnostic Strip See Rx Instructions .ROUTE .COMPLEX Qty: 100 2RF Dose Instruction: USE ONE STRIP IN METER ONCE DAILY Rx Instructions: USE ONE STRIP IN METER ONCE DAILY (DME) lancets [OneTouch Delica Plus Lancet] 33 gauge misc See Rx Instructions .ROUTE .COMPLEX Qty: 100 3RF Dose Instruction: USE DIRECTED CHECK BLOOD SUGAR ONCE DAILY Rx Instructions: USE DIRECTED CHECK BLOOD SUGAR ONCE DAILY hydrochlorothiazide 12.5 mg tablet See Rx Instructions .ROUTE .COMPLEX Qty: 90 3RF Dose Instruction: TAKE 1 TABLET BY MOUTH EVERY DAY Rx Instructions: TAKE 1 TABLET BY MOUTH EVERY DAY atenolol 50 mg tablet 50 mg PO QAM Qty: 90 1RF Rx Instructions: TAKE ONE TABLET BY MOUTH ONCE DAILY metformin 500 mg tablet 500 mg PO DAILY Qty: 90 1RF omeprazole 20 mg capsule,delayed release(DR/EC) 20 mg PO QAM Qty: 90 2RF losartan 100 mg tablet 100 mg PO QAM Qty: 90 2RF Rx Instructions: TAKE ONE TABLET BY MOUTH ONCE DAILY (DME) OneTouch Ultra Test Strip See Rx Instructions .ROUTE .COMPLEX Qty: 100 3RF Dose Instruction: USE ONCE DAILY Rx Instructions: USE ONCE DAILY Date of admission: 06/22/24 08:51 Primary Care Provider: John Sparks Admitting Provider: Manny Tafoya Attending physician on admission: Manny Tafoya Condition: Improved
--- OUTSIDE RECORDS SUMMARY | 2024-06-28 12:50 | XMS_ITS | Referral Summary ---
Author Organization [facility] Address [address] [place] [address] Care Team Providers Care General Assistant Name Role Phone Praveen Belcher MD Primary Care Provider [phone] Source Comments [facility],non-owned Affiliates and Associated Physician Practices is amultiple site organization consisting of ambulatory clinics and hospital sitesin [place], [place], [place] and [place]. This disclosure is being madepursuant to the Care Everywhere program and may not contain all information available regarding this patient. Last updated 18.[facility] [employer] Social History Tobacco Use Types Packs/Day Years Used Date Smoking Tobacco: Never Assessed Sex and Gender Information Value Date Recorded Sex Assigned at Not on file Gender Identity Not on file Sexual Orientation Not on file Plan of Treatment Not on file Care Teams General Assistant Relationship Specialty Start Date End Date Praveen Belcher MD [address] [place] [id number] PCP - General 04/04/19
--- OUTSIDE RECORDS SUMMARY | 2024-06-28 12:50 | XMS_ITS | Patient Health Summary ---
Author Organization [facility] Address [address] [place] [address] Care Team Providers Care Button Grader Name Role Phone Praveen Belcher MD Primary Care Provider [phone] Note from [facility],non-owned Affiliates and Associated Physician Practices is amultiple site organization consisting of ambulatory clinics and hospital sitesin [place], [place], [place] and [place]. This disclosure is being madepursuant to the Care Everywhere program and may not contain all information available regarding this patient. Last updated 18.[facility] Social History Tobacco Use Types Packs/Day Years Used Date Smoking Tobacco: Never Assessed Sex and Gender Information Value Date Recorded Sex Assigned at Not on file Gender Identity Not on file Sexual Orientation Not on file Procedures * DERMATOPATHOLOGY(Performed 02/17/2021) * DERMATOPATHOLOGY(Performed 04/03/2019) * DERMATOPATHOLOGY(Performed 06/01/2017) * DERMATOPATHOLOGY(Performed 11/23/2016) * DERMATOPATHOLOGY(Performed 12/31/2013) * DERMATOPATHOLOGY(Performed 11/20/2013) * DERMATOPATHOLOGY(Performed 11/05/2013) * DERMATOPATHOLOGY(Performed 10/22/2013) * DERMATOPATHOLOGY(Performed 09/21/2013) * GROSS + MICRO EXAM(Performed 01/26/1999) Results * DERMATOPATHOLOGY (02/17/2021 12:00 AM CDT) Only the most recent of9 resultswithin the time period is included. Case Report Dermatopathology Report ? Case: [id number] ? Authorizing Provider: ??Paxton Fernando MD ?Collected: ? 02/17/2021 12:00 AM ? Ordering Location: ? [facility] ?Received: ?02/18/2021 01:13 PM ? Pathologist: ? Ani Red MD ? Specimens: ?? A) - Skin, left superior forehead ? B) - Skin, right parietal scalp ? 4:25 PM CDT DERMATOPATHOLOGY LABORATORY Final Diagnosis Specimen A. 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 SKIN, right parietal scalp: SEBORRHEIC KERATOSIS (L82.1) 4:25 PM CDT DERMATOPATHOLOGY LABORATORY Clinical History A: R/O SCC. B: R/O ISK, other. 4:25 PM CDT DERMATOPATHOLOGY LABORATORY Gross Description Specimen A: Received is one formalin filled container labeled with the patient's name and designated left superior forehead. The specimen consists of a shave biopsy measuring [id number], bisected & [id number]. Jar 0. Specimen B: Received is one formalin filled container labeled with the patient's name and designated right parietal scalp. The specimen consists of a shave biopsy measuring [id number]. Jar 0. 4:25 PM CDT DERMATOPATHOLOGY LABORATORY Microscopic Description Specimen A. SKIN, left superior forehead: Arising in the epidermis and extending into the dermis there are irregularly shaped aggregates of keratinocytes showing evidence of premature cornification. Specimen B. SKIN, right parietal scalp: Sections show an acanthotic lesion composed of relatively uniform keratinocytes. There is hyperkeratosis and pseudo horn cysts formation. 4:25 PM CDT DERMATOPATHOLOGY LABORATORY Disclaimer An external and internal positive and negative controls are appropriate for the histochemical, immunohistochemical and immunofluorescence stain(s) in this case (if any), except where stated explicitly. The performance characteristics of the stain(s) cited in this report were developed and its performance characteristic determined by the Dermatopathology Laboratory at [facility], directed by Dr. Erendira Delacruz. These tests need not be, and therefore are not, approved by the [place] Food and Drug Administration. The tests are used for clinical purposes. Billing Codes Specimen Charges Stain Charges 53775 90660 1 1 4:25 PM CDT DERMATOPATHOLOGY LABORATORY Embedded Images 4:25 PM CDT DERMATOPATHOLOGY LABORATORY Pathology/Cytology TISSUE SPECIMEN FROM SKIN / Unknown 02/17/2021 02/18/2021 1:13 PM CDT Miscellaneous samples (specimen) TISSUE SPECIMEN FROM SKIN / Unknown 02/17/2021 02/18/2021 1:13 PM CDT Paxton Fernando MD LAB - PATHOLOGY/CYTO LOGY ORDERABLES DERMATOPATHOLOGY LABORATORY [facility] - Department of Dermatology [address], [address] [phone] * GROSS + MICRO EXAM (01/26/1999 10:09 AM CDT) Result CASE NUMBER [id number] Comment: ORDERING PHYSICIAN ??LAUREN VILLASEÑOR SPECIMEN TYPE ?Bone-lt knee Date ? 01/26/1999 Physician ?Lauren Villaseñor M.D. Gross Description ? The specimen is received in a single formalin-filled container labeled with the patient's name and bone/tissue of the left knee . ??The specimen consists of multiple bone and soft tissue fragments. ??The soft tissue consists of yellow fibrofatty tissue fragments and falk-white rubbery tissue fragments. ??They range in size from less than 1.0 cm. to 6.0 x 3.5 x 1.0 cm. in thickness. ??They are serially sectioned and independent sales representative sections are submitted in cassette. ??Also received in the same container is a white-blue, smooth, roughly-oval shaped piece of cartilage which measures 0.8 x 0.3 x 0.5 cm. ??The bone consists of multiple, irregularly-shaped falk-white firm bone fragments which range in size from less than 1.0 mm. to 8.5 x 5.0 x 1.0 cm. ??The articular surface shows marked eburnation. ??The tibial plateau is flattened. ?? Assistant Center Director sections of the articular surface are submitted in cassette B for decalcification along with the joint mouth. GJ/rv Microscopic Exam ? Tissue is composed of soft tissue and bone. ??The bone is surfaced by cartilage showing degeneration characterized by condensation of nuclei and fibrillar stroma. ??The bony trabeculae are unremarkable. ??Bone marrow spaces are filled with mature adipose tissue. ??No inflammation or malignancy is seen. Diagnosis ?I. ??Bone and soft tissue, knee, left ?A. ??Changes consistent with osteoarthritis. Juke Box Servicer ? bk Pathologist ?Eugene Bartlett M.D. Snomed. ?01/30/1999 1435 <1> CPT code ? 07108/64338, 8311/48949 MISCELLANEOUS SAMPLES / Unknown 01/26/1999 10:09 AM CDT 01/26/1999 10:09 AM CDT Historical Provider LAB - PATHOLOGY/C YTOLOGY ORDERABLES Care Teams Button Grader Relationship Specialty Start Date End Date Praveen Belcher MD [address] [place] [address] PCP - General 04/04/19
--- OUTSIDE RECORDS SUMMARY | 2024-06-28 12:50 | XMS_ITS | Encounter Summary ---
Author Organization [facility] Address [address] [place] [address] Care Team Providers Care Hot Air Furnace Installer Repairer Name Role Phone Praveen Belcher MD Primary Care Provider [phone] Encounter Details Date Type Department Care Team (Late st Contact Info) Description 08/27/2020 Orders Only [facility] - COVID Vaccine [address] [place] [address] Buck Foster MD [address] [place] [address] Need for vaccination Social History Tobacco Use Types Packs/Day Years Used Date Smoking Tobacco: Never Assessed Sex and Gender Information Value Date Recorded Sex Assigned at Not on file Gender Identity Not on file Sexual Orientation Not on file documented as of this encounter Plan of Treatment Not on file documented as of this encounter Visit Diagnoses Diagnosis Need for vaccination Need for prophylactic vaccination and inoculation against unspecified single disease documented in this encounter Care Teams Hot Air Furnace Installer Repairer Relationship Specialty Start Date End Date Praveen Belcher MD [address] [place] [address] PCP - General 04/04/19 documented as of this encounter
--- OUTSIDE RECORDS SUMMARY | 2024-06-28 12:50 | XMS_ITS | Encounter Summary ---
Author Organization [facility] Address [address] [place] [address] Care Team Providers Care Ladle Mechanic Name Role Phone Praveen Belcher MD Primary Care Provider [phone] Encounter Details Date Type Department Care Team (Late st Contact Info) Description 02/18/2021 Lab Requisition [facility] [address] [place] [address] Paxton Fernando MD [address] [place] [address] Social History Tobacco Use Types Packs/Day Years Used Date Smoking Tobacco: Never Assessed Sex and Gender Information Value Date Recorded Sex Assigned at Not on file Gender Identity Not on file Sexual Orientation Not on file documented as of this encounter Plan of Treatment Not on file documented as of this encounter Procedures Procedure Name Priority Date/Time Associated Diagnosis Comments DERMATOPATHOLOGY Routine 02/17/2021 12:0 0 AM CDT documented in this encounter Results * DERMATOPATHOLOGY (02/17/2021 12:00 AM CDT) Case Report Dermatopathology Report ? Case: [id number] ? Authorizing Provider: ??Paxton Fernando MD ?Collected: ? 02/17/2021 12:00 AM ? Ordering Location: ? [facility] ?Received: ?02/18/2021 01:13 PM ? Pathologist: ? Ani Red MD ? Specimens: ?? A) - Skin, left superior forehead ? B) - Skin, right parietal scalp ? 4:25 PM T DERMATOPATHOLOGY LABORATORY Final Diagnosis Specimen A. 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 SKIN, right parietal scalp: SEBORRHEIC KERATOSIS (L82.1) 4:25 PM [facility] DERMATOPATHOLOGY LABORATORY Clinical History A: R/O SCC. B: R/O ISK, other. 4:25 PM T DERMATOPATHOLOGY LABORATORY Gross Description Specimen A: Received is one formalin filled container labeled with the patient's name and designated left superior forehead. The specimen consists of a shave biopsy measuring [id number], bisected & 3x3y1qz. Jar 0. Specimen B: Received is one formalin filled container labeled with the patient's name and designated right parietal scalp. The specimen consists of a shave biopsy measuring [id number]. Jar 0. 4:25 PM [facility] DERMATOPATHOLOGY LABORATORY Microscopic Description Specimen A. SKIN, [...] determined by the Dermatopathology Laboratory at [facility], directed by Dr. Erendira Delacruz. These tests need not be, and therefore are not, approved by the [place] Food and Drug Administration. The tests are used for clinical purposes. Billing Codes Specimen Charges Stain Charges 12258 60729 1 1 4:25 PM CDT DERMATOPATHOLOGY LABORATORY Embedded Images 4:25 PM CDT DERMATOPATHOLOGY LABORATORY Pathology/Cytology TISSUE SPECIMEN FROM SKIN / Unknown 02/17/2021 02/18/2021 1:13 PM CDT Miscellaneous samples (specimen) TISSUE SPECIMEN FROM SKIN / Unknown 02/17/2021 02/18/2021 1:13 PM CDT Paxton Fernando MD LAB - PATHOLOGY/CYTO LOGY ORDERABLES Performing Organization Address [facility]/State/ZIP Co de Phone Number DERMATOPATHOLOGY LABORATORY [facility] Department of Dermatology [facility] Specialized Medicine [address] [place] [address], [address] [phone] documented in this encounter Visit Diagnoses Not on filedocumented in this encounter Care Teams Ladle Mechanic Relationship Specialty Start Date End Date Praveen Belcher MD [address] [facility] [address] [place] [address] PCP - General 04/04/19 documented as of this encounter
--- OUTSIDE RECORDS SUMMARY | 2024-06-28 12:50 | XMS_ITS | Clinical Summary ---
Author Organization [facility] Address [address] [place] [address] Care Team Providers Care Medical Consultant Name Role Phone Praveen Belcher MD Primary Care Provider [phone] Source Comments [facility],non-owned Affiliates and Associated Physician Practices is amultiple site organization consisting of ambulatory clinics and hospital sitesin [place], [place], [place] and [place]. This disclosure is being madepursuant to the Care Everywhere program and may not contain all information available regarding this patient. Last updated 18.[facility] [employer] Social History Tobacco Use Types Packs/Day Years Used Date Smoking Tobacco: Never Assessed Sex and Gender Information Value Date Recorded Sex Assigned at Not on file Gender Identity Not on file Sexual Orientation Not on file Plan of Treatment Health Maintenance Due Date Last Done Comments DTAP/TDAP/TD VACCINES (1 - Tdap) 02/23/1954 ZOSTER VACCINE (1 of 2) 1987 PNEUMOCOCCAL VACCINE 65+ (1 of 1 - PCV) 2002 Respiratory Syncytial Virus (RSV) Vaccine Pt: or over 60 yrs (1 - 1-dose 75+ series) 02/23/2012 DEPRESSION SCREENING 06/27/2023 MEDICARE AWV ? CALENDAR YEAR 2023 COVID-19 VACCINE ( - 2023-2 5 season) 2024 INFLUENZA VACCINE (#1) 2024 HEPATITIS B VACCINE Aged Out No longe r eligible based on patient's age to complete this topic HIB VACCINE Aged Out No longer eligi ble based on patient's age to complete this topic HPV VACCINE Aged Out No longer eligi ble based on patient's age to complete this topic MENINGOCOCCAL VACCINE Aged Out No belinda rhianna eligible based on patient's age to complete this topic Care Teams Medical Consultant Relationship Specialty Start Date End Date Praveen Belcher MD [address] [place] [address] PCP - General 04/04/19
--- OUTSIDE RECORDS SUMMARY | 2024-06-28 12:51 | XMS_ITS | Encounter Summary ---
Author Organization [facility] Address [address] [place] [address] Care Team Providers Care Electronic System Engineer Name Role Phone Dung Ignacio MD Primary Care Provider [phone] Reason for Referral * Diagnostic Imaging (Routine) - Closed Specialty Diagnoses / Procedures Referred By Contac t Referred To Contact Diagnoses Bilateral carotid artery stenosis Procedures US Carotids Duplex Bilateral Alan Thomas MD [address] [place] [address] [address] [facility] [place] [address] Phone: tel: fax: [facility] [address] [place] [address] Referral ID Status Reason Start Date Expiration Date Visits Re quested Visits Authorized [id number] Closed 09/21/2022 10/21/2023 1 1 Encounter Details Date Type Department Care Team (Late st Contact Info) Description 09/21/2022 Orders Only [facility] Vascular and Vein Surgery 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 FINDINGS ON THE RIGHT The right common carotid artery peak systolic velocity is 99 cm/sec. ??The proximal internal carotid artery is 72. ??There is smooth heterogeneous plaque. Midportion 85. Distal 116. External carotid artery is 77. ??The right vertebral has antegrade flow. FINDINGS ON THE LEFT The left common carotid artery peak systolic velocity is 98 cm/sec. ??The proximal internal carotid artery is 133 over an end-diastolic velocity of 21. ??There is smooth heterogeneous plaque. Midportion 97. Distal 90. ?? External carotid artery is 90. ??The left vertebral has antegrade flow. INTERPRETATION No evidence of hemodynamically significant stenosis in the right internal carotid artery. ??Left internal carotid artery with moderate 50% to 69% stenosis. Job ID/Internal Job ID: ??[id number] Alan Thomas MD IM US PROCEDURES Final Res ult documented in this encounter Visit Diagnoses Diagnosis Bilateral carotid artery stenosis- Primary Occlusion and stenosis of carotid artery without mention of cerebral infarction Bilateral carotid artery stenosis Occlusion and stenosis of carotid artery without mention of cerebral infarction documented in this encounter Care Teams Electronic System Engineer Relationship Specialty Start Date End Date Dung Ignacio MD [address] [place] [address] PCP - General Internal Medicine 09/21/22 documented as of this encounter
--- OUTSIDE RECORDS SUMMARY | 2024-06-28 12:51 | XMS_ITS | Encounter Summary ---
Author Organization [facility] Address [address] [place] [address] [place] [address] Care Team Providers Care Radiation Therapist Name Role Phone John Sparks DO Primary Care Provider [phone] Encounter Details Date Type Department Care Team (Late st Contact Info) Description 06/09/2020 Orders Only [facility] [place] [address] Karen Lambert MD [address] [place] [address] Social History Tobacco Use Types Packs/Day Years Used Date Smoking Tobacco: Never Assessed Sex and Gender Information Value Date Recorded Sex Assigned at Not on file Legal Sex Male 12:04 PM COVER CUTTER Gender Identity Not on file Sexual Orientation Not on file documented as of this encounter Plan of Treatment Not on file documented as of this encounter Results * EMG (06/18/2020 1:10 PM COVER CUTTER) 06/18/2020 1:10 PM COVER CUTTER Narrative ESCRIPTION - 06/18/2020 2:48 PM COVER CUTTER COMPLAINT: ??Tingling and numbness, right worse than left. ??Patient had EMG and nerve conduction performed of bilateral upper extremities. ??Results are as follows: SENSORY NERVE CONDUCTION FINDINGS: Left median digit 2: ??Latency of 4.15 which is prolonged with amplitude 7.5 which is low. Right median digit 2: ??No response. Left ulnar digit 5: ??Latency of 3.1 with amplitude 9.9. Right ulnar digit 5: ??Latency of 2.95 with amplitude 9.2. ?? Left radial thumb: ??Latency of 2.85 with amplitude 4.0. Right radial thumb: ??Latency of 2.9 with amplitude 2.1. MOTOR NERVE CONDUCTION STUDIES: Left median to APB: ??Latency of 4.5 which is prolonged with amplitude 7.0, conduction velocity 54.3. Right median to APB: ??Latency of 5.5 with amplitude 3.4, conduction velocity 47.6. Right ulnar to ADM: ??Latency of 2.35 with amplitude 9.4, conduction velocity 54.5. ??Below the elbow amplitude 9.0, above the elbow amplitude 8.4, conduction velocity across the elbow 60.9. EMG was performed of bilateral upper extremities. Left biceps, left triceps, left brachioradialis, left first dorsal interossei, left APB. Right biceps, right triceps, right brachioradialis, right first dorsal interossei, right APB. Normal insertional activity. ??No fibs, positive sharp waves or fasciculations seen. ??Motor units with normal amplitude and duration. ?? Recruitment pattern is normal except in the right APB where there is reduced recruitment pattern. CONCLUSIONS: ??Electrodiagnostic evidence for severe carpal tunnel syndrome on the right upper extremity. Moderate carpal tunnel syndrome on the left upper extremity. I did advise the patient to start wearing carpal tunnel splints bilaterally and follow up with primary care doctor. ??Patient ??benefit from carpal tunnel release. D: ??06/18/2020 01:10 PM #[id number] T: ??06/18/2020 01:46 PM /NTS John Sparks DO NEUROLOGY ORDERABLES Final Resu lt ESCRIPTION documented in this encounter Visit Diagnoses Diagnosis Paresthesia- Primary Disturbance of skin sensation Paresthesia Disturbance of skin sensation documented in this encounter Care Teams Radiation Therapist Relationship Specialty Start Date End Date John Sparks DO [address] [address] PCP - General INTERNAL MEDICINE 06/06/20 documented as of this encounter
--- OUTSIDE RECORDS SUMMARY | 2024-06-28 12:51 | XMS_ITS | Encounter Summary ---
Author Organization [facility] Address [address] [place] [address] Care Team Providers Care Pick Up Attendant Name Role Phone Dung Ignacio MD Primary Care Provider [phone] Reason for Referral * Diagnostic Imaging (Routine) - Authorized Specialty Diagnoses / Procedures Referred By Contac t Referred To Contact Diagnoses Bilateral carotid artery stenosis Procedures US Carotids Duplex Bilateral Latosha Mata NP [address] [place] [address] Phone: tel: fax: [facility] [address] [place] [address] Referral ID Status Reason Start Date Expiration Date V isits Requested Visits Authorized [id number] Authorized 09/28/2023 10/27/2024 1 1 Encounter Details Date Type Department Care Team (Late st Contact Info) Description 09/28/2023 Orders Only [facility] Vascular and Vein Surgery [address] [address] [place] [address] Latosha Mata NP [address] [place] [address] Bilateral carotid artery stenosis (Primary Dx) Social History Tobacco Use Types Packs/Day Years Used Date Smoking Tobacco: Never Smokeless Tobacco: Never Personal Safety Answer Date Recorded Getting School Help Needed Not on file Sex and Gender Information Value Date Recorded Sex Assigned at Not on file Legal Sex Male 11:52 PM INTERNAL GRINDER TENDER Gender Identity Not on file Sexual Orientation Not on file documented as of this encounter Plan of Treatment Scheduled Orders Name Type Priority Associated Diagnoses Orde r Schedule US Carotids Duplex Bilateral Imaging Schedule Routine, Read Routine (OP Routine) Bilateral carotid artery stenosis Expected: 09/27/2024, Expires: 03/29/2025 documented as of this encounter Visit Diagnoses Diagnosis Bilateral carotid artery stenosis- Primary Occlusion and stenosis of carotid artery without mention of cerebral infarction documented in this encounter Care Teams Pick Up Attendant Relationship Specialty Start Date End Date Dung Ignacio MD [address] [facility] [address] [place] [address] PCP - General Internal Medicine 09/21/22 documented as of this encounter
--- OUTSIDE RECORDS SUMMARY | 2024-06-28 12:51 | XMS_ITS | Encounter Summary ---
Author Organization [facility] Healthcare Address [address] [place] [address] Care Team Providers Care Refrigerating Oiler Name Role Phone Dung Ignacio MD Primary Care Provider +1- [phone] Reason for Visit * Reason Comments Follow-up 1yr carotid stenosis , R CEA 2014, SDS Encounter Details Date Type Department Care Team (Late st Contact Info) Description 09/28/2023 11:00 AM CDT Office Visit [facility] Medical Group Vascular and Vein Surgery [address] [facility] [address] [place] [address] Latosha Mata, SALES PROFESSIONAL BILINGUAL [address] 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 Gender Identity Not on file Sexual Orientation Not on file documented as of this encounter Last Filed Vital Signs Vital Sign Reading Time Taken Comments Blood Pressure 150/79 09/28/2023 10:24 AM CDT Pulse 73 09/28/2023 10:24 AM CDT Temperature - - Respiratory Rate - - Oxygen Saturation - - Inhaled Oxygen Concentration - - Weight 83.9 kg (185 lb) 09/28/2023 10:24 AM CDT Height 179.1 cm (5' 10.5 ) 09/28/2023 10:24 AM C DT Body Mass Index 26.17 09/28/2023 10:24 AM CDT documented in this encounter Progress Notes * Latosha Mata, SALES PROFESSIONAL BILINGUAL - 09/28/2023 11:00 AM CDT Course Subjective/Objective Patient ID: Naeem Pitt is a 88 y.o. male. Chief Complaint Follow-up (1yr carotid stenosis, R CEA 2013, SDS) HPI Patient is a 88 y.o. male with past medical history of diabetes, hyperlipidemia, hypertension, basal cell carcinoma status post right carotid endarterectomy 2013 who presents today for evaluation regarding carotid artery stenosis. Patient presents today for routine follow-up. Patient denies issues or concerns regarding stroke, TIA, focal neurological deficits. Patient states they are in their normal state of health. No new issues or concerns at this time. Antiplatelets/Anticoagulants (and reason): Aspirin Previous vascular surgery interventions, including date (surgery, angio,etc): 2013: Right CEA Current Outpatient Medications: aspirin 81 mg enteric coated tablet, Take 1 tablet (81 mg total) by mouth daily, Disp: , Rfl: atenolol (TENORMIN) 50 mg tablet, , Disp: , Rfl: atorvastatin (LIPITOR) 20 mg tablet, , Disp: , Rfl: cholecalciferol (VITAMIN D-3) 1,000 unit, Take 1 tablet/capsule (1,000 Units total) by mouth daily,Disp: , Rfl: finasteride (PROSCAR) 5 mg tablet, , Disp: , Rfl: hydroCHLOROthiazide (HYDRODIURIL) 12.5 mg tablet, , Disp: , Rfl: losartan (COZAAR) 100 mg tablet, , Disp: , Rfl: metFORMIN (GLUCOPHAGE) 500 mg tablet, , Disp: , Rfl: omeprazole (PriLOSEC) 20 mg capsule, , Disp: , Rfl: OneTouch Ultra Blue Test Strip strip, , Disp: , Rfl: phytonadione, vit K1, (PHYTONADIONE, VITAMIN K1,) 100 mcg tablet, Take by mouth daily, Disp: , Rfl: vitamin E 400 unit capsule, 0.25 capsules (100 Units total) daily, Disp: , Rfl: triamcinolone (KENALOG) 0.1 % cream, , Disp: , Rfl: No Known Allergies Past Medical History: Diagnosis Date DM (diabetes mellitus) (HCC) Hyperlipidemia Hypertension Past Surgical History: Procedure Laterality Date CARPAL TUNNEL RELEASE Right 07/2020 Family History Problem Relation Age of Onset Heart disease Mother Colon cancer Father Social History Tobacco Use Smoking status: Never Smokeless tobacco: Never Substance and Sexual Activity Drug use: None Sexual activity: None Alcohol Use: Not on file ROS Constitutional: Negative for activity change, chills, diaphoresis and fever. Eyes: No visual disturbances. ENT: Negative for sore throat, tooth ache, ear ache. Respiratory: Negative for cough and shortness of breath. Cardiovascular: Negative for chest pain, palpitations and leg swelling. Gastrointestinal: Negative for abdominal pain, constipation, diarrhea, nausea and vomiting. Genitourinary: Negative for flank pain. Musculoskeletal: Negative for arthralgias, back pain, edema. Skin: Negative for wounds or ulcerations Neurological: Negative for dizziness, syncope, facial asymmetry and speech difficulty. PE Constitutional: Patient is oriented to person, place, and time. Pateint appears well-developed and well-nourished. No distress. Head: Normocephalic and atraumatic. Neck: Normal range of motion. Neck supple. Carotid bruit is not present. Cardiovascular: Normal rate and regular rhythm. Pulmonary/Chest: Effort normal and breath sounds normal. No accessory muscle usage. Abdominal: Soft. Bowel sounds are normal. Patient exhibits no distension and no mass. There is no tenderness. Extremities: Femoral, popliteal and distal pulses palpable bilaterally Neurological: Cranial nerves 2-12 intact. Strength and sensation intact bilaterally. Skin: Warm and dry. No rashes. No discoloration. Psychiatric: Appropriate mood and affect. Imaging The following diagnostic imaging visualized and reviewed by myself. Carotid duplex performed on 09/28/2023 shows mild stenosis to the right ICA measuring less than 50%with velocity measuring 85/21. Left ICA stenosis measuring 50-69% with velocity 133/21. Assessment/Plan Diagnoses and all orders for this visit: Bilateral carotid artery stenosis (I65.23) (Primary) Assessment & Plan: Asymptomatic left moderate carotid artery stenosis status post right CEA in 2013. Patient remains asymptomatic and compliant with medications. Plan: Follow-up in 1 year for routine surveillance with carotid ultrasound. Hyperlipidemia, unspecified hyperlipidemia type (E78.5) Type 2 diabetes mellitus with other specified complication, without long-term current use of insulin (HCC) (E11.69) Primary hypertension (I10) Impression: Chronic stable blood pressure control use medication, per patient. Medications reviewedand continued. Plan: No changes to medications. Further management as per primary care provider Impression: Chronic stable lipid control use medication, per patient. Medications reviewed, and continued. Plan: No changes to medications. Further management as per primary care provider Impression: Chronic DM with stable glucose control using medication, per patient. Medications reviewed and continued. Plan: No changes to medications. Further management as per primary care provider Cosigned by Mich Armenta MD at 10/04/2023 10:11 AM CDT documented in this encounter Miscellaneous Notes * Assessment & Plan Note - Latosha Mata NP - 09/30/2023 1:21 PM CDTAssociated Problem(s): Bilateral carotid artery stenosis Asymptomatic left moderate carotid artery stenosis status post right CEA in 2013. Patient remains asymptomatic and compliant with medications. Plan: Follow-up in 1 year for routine surveillance with carotid ultrasound. documented in this encounter Plan of Treatment Not on file documented as of this encounter Visit Diagnoses Diagnosis Bilateral carotid artery stenosis- Primary Occlusion and stenosis of carotid artery without mention of cerebral infarction Hyperlipidemia, unspecified hyperlipidemia type Type 2 diabetes mellitus with other specified complication, without long-term current use of insulin (HCC) Primary hypertension Unspecified essential hypertension documented in this encounter Care Teams Refrigerating Oiler Relationship Specialty Start Date End Date Dung Ignacio MD [address] [address] PCP - General Internal Medicine 09/21/22 documented as of this encounter
--- OUTSIDE RECORDS SUMMARY | 2024-06-28 12:51 | XMS_ITS | Clinical Summary ---
Author Organization [facility] Address [address] [place] [address] Care Team Providers Care Nuisance Wildlife Trapper Name Role Phone Dung Ignacio MD Primary Care Provider +1- [phone] Allergies No known active allergies Medications atorvastatin (LIPITOR) 20 mg tablet 05/01/2019 Active atenolol (TENORMIN) 50 mg tablet 05/02/2019 Active finasteride (PROSCAR) 5 mg tablet 04/29/2019 Active losartan (COZAAR) 100 mg tablet 03/27/2019 Active omeprazole (PriLOSEC) 20 mg capsule 04/14/2019 Active triamcinolone (KENALOG) 0.1 % cream 03/31/2019 Active vitamin E 400 unit capsule 0.25 capsules (100 Units total) daily Active cholecalciferol (VITAMIN D-3) 1,000 unit Take 1 tablet/capsul e (1,000 Units total) by mouth daily Active phytonadione, vit K1, (PHYTONADIONE, VITAMIN K1,) 100 mcg tablet Take by mouth daily Active OneTouch Ultra Blue Test Strip strip 07/17/2019 Active hydroCHLOROthia zide (HYDRODIURIL) 12.5 mg tablet 09/10/2020 Acti ve metFORMIN (GLUCOPHAGE) 500 mg tablet 09/15/2020 Activ e aspirin 81 mg enteric coated tablet Take 1 tablet (81 mg total) by mouth daily Active Active Problems Problem Noted Date Diagnosed Date Diabetes mellitus 09/22/2021 Hyperlipidemia 09/07/2019 Assessment & Plan (09/17/2020 4:53 PM CDT): Impression: Stable chronic hyperlipidemia. Plan: Medications reviewed I recommend continuing daily statin regimen as directed by patient's primary care physician. Hypertension 09/07/2019 Assessment & Plan (09/17/2020 4:53 PM CDT): Impression: Stable chronic hypertension. Plan: Medications reviewed and recommend continuing daily antihypertensive regimen as directed by patient's primary care physician. BCC (basal cell carcinoma), right scalp above th e ear 06/14/2019 Bilateral carotid artery stenosis 07/05/2016 Assessment & Plan (09/30/2023 1:21 PM CDT): Asymptomatic left moderate carotid artery stenosis status post right CEA in 2013. Patient remains asymptomatic and compliant with medications. Plan: Follow-up in 1 year for routine surveillance with carotid ultrasound. Assessment & Plan (09/24/2022 9:59 AM CDT): History of bilateral carotid stenosis with right endarterectomy in 2013. He denies any recent stroke symptoms, amaurosis fugax or unilateral neurological deficits. He maintains compliance with medications. Duplex shows a patent right ICA and moderate left ICA stenosis 50-79%, 144/37 velocity. Denies any concerns or complaints today. Plan: return in 1 year for routine carotid duplex. Assessment & Plan (09/17/2020 4:52 PM CDT): Impression: Stable asymptomatic bilateral carotid stenosis. Plan: No surgical intervention needed. Patient follow-up in 1 year for re- evaluation and repeat carotid duplex surveillance. Recommend ongoing risk factor modification including daily statin, anti-platelet and antihypertensive regimen. Basal cell carcinoma (BCC) of face 11/12/2013 Encounters Date Type Department Care Team Description 04/20/2024 Orders Only [facility] Medical Group Vascular and Vein Surgery [facility] [facility] [address] [place] [address] Mich Armenta MD Bilateral carotid artery stenosis (Primary Dx) from Last 3 Months Immunizations Name Administration Dates Next Due Influenza, Quadrivalent, Spl it, Intramuscular 04/05/2019 Influenza, Trivalent, High D ose, Split, Preservative Free, Intramuscular 04/05/2019 Pfizer SARS-CoV-2 Monovalent Vaccination (12+ Yrs) PURPLE 05/17/2021,09/09/2020,08/17/2020 Pneumococcal Conjugate PCV 13 05/12/2017 Surgical History Surgery Date Site/Laterality Comments CARPAL TUNNEL RELEASE 07/28/2020 - 08/24/2020 Right Medical History Medical History Date Comments Hyperlipidemia Hypertension DM (diabetes mellitus) (HCC) Family History Medical History Relation Name Comments Colon cancer Father Heart disease Mother Relation Name Status Comments Father Mother Social History Tobacco Use Types Packs/Day Years Used Date Smoking Tobacco: Never Smokeless Tobacco: Never Tobacco Cessation:Counseling Given: Not Answered Personal Safety Answer Date Recorded Getting School Help Needed Not on file Sex and Gender Information Value Date Recorded Sex Assigned at Not on file Legal Sex 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 Gender Identity Not on file Sexual Orientation Not on file Obstetrics History Last Filed Vital Signs Vital Sign Reading Time Taken Comments Blood Pressure 150/79 09/28/2023 10:24 AM CDT Pulse 73 09/28/2023 10:24 AM CDT Temperature 36.3 ??C (97.3 ??F) 09/07/2019 9:03 AM CD T Respiratory Rate - - Oxygen Saturation 98% 04/22/2021 9:37 AM CDT Inhaled Oxygen Concentration - - Weight 83.9 kg (185 lb) 09/28/2023 10:24 AM CDT Height 179.1 cm (5' 10.5 ) 09/28/2023 10:24 AM C DT Body Mass Index 26.17 09/28/2023 10:24 AM CDT Plan of Treatment Health Maintenance Due Date Last Done Comments Albumin Creatinine Ratio, Urine 1937 Depression Screening 1937 Fall Risk Assessment 1937 Hemoglobin A1C 1937 eGFR 1937 Dilated Eye Exam 1937 Foot Exam 1937 Lipid Panel 1937 DTaP/Tdap/Td Vaccine (1 - Tdap) 02/23/1948 Hepatitis B Screening 1955 Zoster Vaccine (1 of 2) 1987 Well Visit 65+ 2002 Pneumococcal vaccine 65+ (2 of 2 - PPSV23 or PCV20) 07/07/2017 05/12/2017 Covid-19 Vaccine ( - 2024-25 season) 2024 05/17/2021, 09/09/2020, 08/17/2020 Influenza Vaccine (#1) 2024 04/05/2019, [address] [facility] AETNA MEDICARE GOLD AETNA MEDICARE GOLD Care Teams Nuisance Wildlife Trapper Relationship Specialty Start Date End Date Dung Ignacio MD [address] [facility] [address] [place] [address] PCP - General Internal Medicine 09/21/22
--- OUTSIDE RECORDS SUMMARY | 2024-06-28 12:51 | XMS_ITS | Encounter Summary ---
Author Organization [facility] Healthcare Address [address] [place] [address] Care Team Providers Care Media Production Manager Name Role Phone Dung Ingacio MD Primary Care Provider +1- [phone] Reason for Referral * Diagnostic Imaging (Routine) - Authorized Specialty Diagnoses / Procedures Referred By Contac t Referred To Contact Diagnoses Bilateral carotid artery stenosis Procedures US Carotids Duplex Bilateral Mich Armenta MD [address] [facility] [address] [place] [address] Phone: tel: fax: [facility] Medical Group Vascular and Vein Surgery at [address] [place] [address] Phone: tel: fax: Referral ID Status Reason Start Date Expiration Date V isits Requested Visits Authorized [id number] Authorized 04/20/2024 05/20/2025 1 1 Encounter Details Date Type Department Care Team (Late st Contact Info) Description 04/20/2024 Orders Only [facility] Medical Group Vascular and Vein Surgery [address] [facility] [address] [place] [address] Mich Amrenta MD [address] [facility] [address] [place] [address] Bilateral carotid artery stenosis (Primary Dx) Social History Tobacco Use Types Packs/Day Years Used Date Smoking Tobacco: Never Smokeless Tobacco: Never Personal Safety Answer Date Recorded Getting School Help Needed Not on file Sex and Gender Information Value Date Recorded Sex Assigned at Not on file Legal Sex Male 11:52 PM PROGRAM SUPPORT CLERK Gender Identity Not on file Sexual Orientation Not on file documented as of this encounter Plan of Treatment Scheduled Orders Name Type Priority Associated Diagnoses Orde r Schedule US Carotids Duplex Bilateral Imaging Schedule Routine, Read Routine (OP Routine) Bilateral carotid artery stenosis Expected: 10/24/2024, Expires: 04/20/2025 documented as of this encounter Visit Diagnoses Diagnosis Bilateral carotid artery stenosis- Primary Occlusion and stenosis of carotid artery without mention of cerebral infarction documented in this encounter Care Teams Media Production Manager Relationship Specialty Start Date End Date Dung Ignacio MD [address] [place] [id number] PCP - General Internal Medicine 09/21/22 documented as of this encounter
--- OUTSIDE RECORDS SUMMARY | 2024-06-28 12:51 | XMS_ITS | Encounter Summary ---
Author Organization [facility] Medical Group Address [address] [facility] [address] [place] [address] Care Team Providers Care Unattended Ground Sensor Specialist Name Role Phone Dung Ignacio MD Primary Care Provider +1- [phone] Reason for Visit * Reason Comments Follow-up 1yr Carotid stenosis Encounter Details Date Type Department Care Team (Late st Contact Info) Description 09/21/2022 10:30 AM CDT Office Visit [facility] Medical [facility] Vascular and Vein Surgery [address] [facility] [address] [place] [address] Latosha Mata, PRODUCE SORTER [address] [facility] [address] [place] [address] Hyperlipidemia, unspecified hyperlipidemia type (Primary Dx); Primary hypertension; Type 2 diabetes mellitus with other specified complication, without long-term current use of insulin (HCC); Bilateral carotid artery stenosis Social History Tobacco Use Types Packs/Day Years Used Date Smoking Tobacco: Never Smokeless Tobacco: Never Sex and Gender Information Value Date Recorded Sex Assigned at Not on file 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 Gender Identity Not on file Sexual Orientation Not on file documented as of this encounter Last Filed Vital Signs Vital Sign Reading Time Taken Comments Blood Pressure 130/74 09/21/2022 9:20 AM CDT Pulse 84 09/21/2022 9:20 AM CDT Temperature - - Respiratory Rate - - Oxygen Saturation - - Inhaled Oxygen Concentration - - Weight 86.6 kg (191 lb) 09/21/2022 9:20 AM CDT Height 179.1 cm (5' 10.5 ) 09/21/2022 9:20 AM CD T Body Mass Index 27.02 09/21/2022 9:20 AM CDT documented in this encounter Progress Notes * Latosha Mata, PRODUCE SORTER - 09/21/2022 10:30 AM CDT Course Subjective/Objective Patient ID: Naeem Pitt is a 87 y.o. male. Chief Complaint Follow-up (1yr Carotid stenosis ) HPI Patient is a 87 y.o. male who presents today for evaluation regarding carotid artery stenosis. History of right carotid endarterectomy in 2013. Patient presents today for routine follow-up. Patient denies issues or concerns regarding stroke, TIA, focal neurological deficits. Patient states they arein their normal state of health. No new issues or concerns at this time. Current Outpatient Medications: aspirin 81 mg enteric coated tablet, Take 81 mg by mouth daily, Disp: , Rfl: atenolol (TENORMIN) 50 mg tablet, , Disp: , Rfl: atorvastatin (LIPITOR) 20 mg tablet, , Disp: , Rfl: cholecalciferol (VITAMIN D-3) 1,000 unit, Take 1,000 Units by mouth daily, Disp: , Rfl: finasteride (PROSCAR) 5 mg tablet, [...] , Rfl: vitamin E 400 unit capsule, 100 Units daily, Disp: , Rfl: triamcinolone (KENALOG) 0.1 [...] reviewed by myself. Carotid duplex performed on Assessment/Plan Diagnoses and all orders for this visit: Hyperlipidemia, unspecified hyperlipidemia type (E78.5) (Primary) Primary hypertension (I10) Type 2 diabetes mellitus with other specified complication, without long-term current use of insulin (HCC) (E11.69) Bilateral carotid artery stenosis (I65.23) Assessment & Plan: History of bilateral carotid stenosis with right endarterectomy in 2013. He denies any recent stroke symptoms, amaurosis fugax or unilateral neurological deficits. He maintains compliance with medications. Duplex shows a patent right ICA and moderate left ICA stenosis 50-79%, 144/37 velocity. Denies any concerns or complaints today. Plan: return in 1 year for routine carotid duplex. Impression: Chronic stable blood pressure control use medication, per patient. Medications reviewedand continued. Plan: No changes to medications. Further management as per primary care providerImpression: Chronicstable lipid control use medication, per patient. Medications reviewed, and continued. Plan: No changes to medications. Further management as per primary care providerImpression: ChronicDM with stable glucose control using medication, per patient. Medications reviewed and continued. Plan: No changes to medications. Further management as per primary care provider Cosigned by Alan Thomas MD at 09/29/2022 11:46 AM CDT documented in this encounter Miscellaneous Notes * Assessment & Plan Note - Latosha Mata NP - 09/24/2022 9:52 AM CDTAssociated Problem(s): Bilateral carotid artery stenosis History of bilateral carotid stenosis with right endarterectomy in 2013. He denies any recent stroke symptoms, amaurosis fugax or unilateral neurological deficits. He maintains compliance with medications. Duplex shows a patent right ICA and moderate left ICA stenosis 50-79%, 144/37 velocity. Denies any concerns or complaints today. Plan: return in 1 year for routine carotid duplex. documented in this encounter Plan of Treatment Not on file documented as of this encounter Visit Diagnoses Diagnosis Hyperlipidemia, unspecified hyperlipidemia type- Primary Primary hypertension Unspecified essential hypertension Type 2 diabetes mellitus with other specified complication, without long-term current use of insulin (HCC) Bilateral carotid artery stenosis Occlusion and stenosis of carotid artery without mention of cerebral infarction documented in this encounter Care Teams Unattended Ground Sensor Specialist Relationship Specialty Start Date End Date Dung Ignacio MD [address] [facility] [address] [address] PCP - General Internal Medicine 09/21/22 documented as of this encounter
--- OUTSIDE RECORDS SUMMARY | 2024-06-28 12:51 | XMS_ITS | Encounter Summary ---
Author Organization [facility] Address [address] [place] [address] Care Team Providers Care Maternal Fetal Physician Name Role Phone Unavailable Primary Care Provider Unavailabl e Encounter Details Date Type Department Care Team (Late st Contact Info) Description 01/26/1999 Orders Only [facility] [address] [place], [place] [id number] ProviderEvelyn MD Social History Tobacco Use Types Packs/Day Years Used Date Smoking Tobacco: Never Assessed Sex and Gender Information Value Date Recorded Sex Assigned at Not on file Gender Identity Not on file Sexual Orientation Not on file documented as of this encounter Plan of Treatment Not on file documented as of this encounter Procedures Procedure Name Priority Date/Time Associated Diagnosis Comments GROSS + MICRO EXAM ALMAZ 01/26/1999 10 :09 AM CDT documented in this encounter Results * GROSS + MICRO EXAM (01/26/1999 10:09 [...] in thickness. ??They are serially sectioned and premium representative sections are submitted in cassette. ??Also [...] eburnation. ??The tibial plateau is flattened. ?? Recreation Specialist sections of the articular surface are submitted [...] knee, left ?A. ??Changes consistent with osteoarthritis. Human Performance Consultant ? bk Pathologist ?Eugene Bartlett M.D. [place]. ?01/30/1999 1435 <1> CPT code ? 92195/57864, 8311/39207 MISCELLANEOUS SAMPLES / Unknown 01/26/1999 10:09 AM CDT 01/26/1999 10:09 AM CDT Historical Provider LAB - PATHOLOGY/C YTOLOGY ORDERABLES documented in this encounter Visit Diagnoses Not on filedocumented in this encounter
--- OUTSIDE RECORDS SUMMARY | 2024-06-28 12:51 | XMS_ITS | Encounter Summary ---
Author Organization [facility] Address [facility]. [place], [place] [address] [place] [address] Care Team Providers Care Tray Worker Name Role Phone John Sparks DO Primary Care Provider Encounter Details Date Type Department Care Team (Latest Contact Info) Description 06/18/2020 Travel Social History Tobacco Use Types Packs/Day Years Used Date Smoking Tobacco: Never Assessed Sex and Gender Information Value Date Recorded Sex Assigned at Not on file Legal Sex Male 12:04 PM LEARNING AND DEVELOPMENT COORDINATOR Gender Identity Not on file Sexual Orientation Not on file COVID-19 Exposure Response Date Recorded In the last month, have you been in contact with someone who was confirmed or suspected to have Coronavirus / COVID-19? No / Unsure 06/18/2020 12:37 PM LEARNING AND DEVELOPMENT COORDINATOR documented as of this encounter Plan of Treatment Not on file documented as of this encounter Visit Diagnoses Not on filedocumented in this encounter Care Teams Tray Worker Relationship Specialty Start Date End Date John Sparks DO [address] [address] PCP - General INTERNAL MEDICINE 06/06/20 documented as of this encounter
--- OUTSIDE RECORDS SUMMARY | 2024-06-28 12:51 | XMS_ITS | Encounter Summary ---
Author Organization [facility] Address [address] [place] [address] Care Team Providers Care Pumper Hand Name Role Phone Dung Ignacio MD Primary Care Provider [phone] Reason for Referral * Diagnostic Imaging (Routine) - Closed Specialty Diagnoses / Procedures Referred By Evelia rodriguez Referred To Contact Diagnoses Bilateral carotid artery stenosis Procedures US Carotids Duplex Bilateral Alan Thomas MD [address] [place] [address] [address] [place] [address] Phone: tel: fax: [facility] [address] [place] [phone] Referral ID Status Reason Start Date Expiration Date Visits Re quested Visits Authorized [id number] Closed 09/21/2022 10/21/2023 1 1 Reason for Visit * Diagnostic Imaging (Routine) - Closed Specialty Diagnoses / Procedures Referred By Evelia rodriguez Referred To Contact Diagnoses Bilateral carotid artery stenosis Procedures US Carotids Duplex Bilateral Alan Thomas MD [address] [place] [address] DR [address] [address] Phone: tel: fax: [facility] [address] [place] [phone] Referral ID Status Reason Start Date Expiration Date Visits Re quested Visits Authorized [id number] Closed 09/21/2022 10/21/2023 1 1 Encounter Details Date Type Department Care Team (Latest Contact Info) Description 09/28/2023 9:46 AM CDT - 09/28/2023 11:59 PM CDT Hospital Encounter [facility] [address] [address] Bilateral carotid artery stenosis Discharge Disposition: Discharge to home or self care Social History Tobacco Use Types Packs/Day Years Used Date Smoking Tobacco: Never Smokeless Tobacco: Never Personal Safety Answer Date Recorded Getting School Help Needed Not on file Sex and Gender Information Value Date Recorded Sex Assigned at Not on file Legal Sex Male 11:52 PM PRICE CLERK Gender Identity Not on file Sexual Orientation Not on file documented as of this encounter Medications at Time of Discharge aspirin 81 mg enteric coated tablet Take 1 tablet (81 mg total) by mouth daily atenolol (TENORMIN) 50 mg tablet 05/02/2019 atorvastatin (LIPITOR) 20 mg tablet 05/01/2019 cholecalciferol (VITAMIN D-3) 1,000 unit Take 1 tablet/capsule (1,000 Units total) by mouth daily finasteride (PROSCAR) 5 mg tablet 04/29/2019 hydroCHLOROthiazi de (HYDRODIURIL) 12.5 mg tablet 09/10/2020 losartan (COZAAR) 100 mg tablet 03/27/2019 metFORMIN (GLUCOPHAGE) 500 mg tablet 09/15/2020 omeprazole (PriLOSEC) 20 mg capsule 04/14/2019 OneTouch Ultra Blue Test Strip strip 07/17/2019 phytonadione, vit K1, (PHYTONADIONE, VITAMIN K1,) 100 mcg tablet Take by mouth daily triamcinolone (KENALOG) 0.1 % cream 03/31/2019 vitamin E 400 unit capsule 0.25 capsules (100 Units total) daily documented as of this encounter Discharge Disposition Disposition Code Departure Means Destination Discharge to home or self care documented in this encounter Plan of Treatment Not on file documented as of this encounter Procedures Procedure Name Priority Date/Time Associated Diagnosis Comments US CAROTIDS DUPLEX BILATERAL Schedule Routine, Read Routine (OP Routine) 09/28/2023 10:28 AM CDT Bilateral carotid artery stenosis documented in this encounter Results * US Carotids Duplex Bilateral (09/28/2023 10:28 AM CDT) Anatomical Region Laterality Modality Vascular Bilateral Ultrasound 09/28/2023 Narrative 10/03/2023 9:19 AM CDT dINK Job ID: [id number] dINK Document ID: [id number] Dictated date/time: [id number] BILATERAL CAROTID DUPLEX REASON FOR EXAM Carotid [...] to 69% stenosis. Job ID/Internal Job ID: ??[id number] Alan Thomas MD IM US PROCEDURES Final Res ult documented in this encounter Visit Diagnoses Diagnosis Bilateral carotid artery stenosis Occlusion and stenosis of carotid artery without mention of cerebral infarction documented in this encounter Care Teams Pumper Hand Relationship Specialty Start Date End Date Dung Ignacio MD [address] [facility] [address] [place] [id number] PCP - General Internal Medicine 09/21/22 documented as of this encounter
--- OUTSIDE RECORDS SUMMARY | 2024-06-28 12:51 | XMS_ITS | Referral Summary ---
Author Organization [facility] Address [address] [place] [address] Care Team Providers Care Doctor Of Nurse Anesthesia Name Role Phone Dung Ignacio MD Primary Care Provider [phone] Encounters Date Type Department Care Team Description 04/20/2024 Orders Only [facility] Vascular and Vein Surgery [address] [facility] [facility] [address] [place] [address] [place] Armenta MD Bilateral carotid artery stenosis (Primary Dx) from Last 3 Months Allergies No known active allergies Medications atorvastatin [...] Basal cell carcinoma (BCC) of face 11/12/2013 Immunizations Name Administration Dates Next Due Influenza, Quadrivalent, Spl it, Intramuscular 04/05/2019 Influenza, Trivalent, High D ose, Split, Preservative Free, Intramuscular 04/05/2019 Enablon SARS-CoV-2 Monovalent Vaccination (12+ Yrs) PURPLE 05/17/2021,09/09/2020,08/17/2020 Pneumococcal Conjugate PCV 13 05/12/2017 Social History Tobacco Use Types Packs/Day Years Used Date Smoking Tobacco: Never Smokeless Tobacco: Never Tobacco Cessation:Counseling Given: Not Answered Personal Safety Answer Date Recorded Getting School Help Needed Not on file Sex and Gender Information Value Date Recorded Sex Assigned at Not on file 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 Sex Male 11:52 PM COMIC 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 Gender Identity Not on file Sexual Orientation Not on file Last Filed Vital Signs Vital Sign Reading [...] 09/28/2023 10:24 AM CDT Plan of Treatment Not on file Insurance [employer] [facility] ADVANTAGE CON [facility] [id number] MEDIC[address] [employer] [facility] [facility] MEDICARE [employer] [facility] Care Teams Doctor Of Nurse Anesthesia Relationship Specialty Start Date End Date Dung Ignacio MD [address] [place] [address] PCP - General Internal Medicine 09/21/22
--- OUTSIDE RECORDS SUMMARY | 2024-06-28 12:51 | XMS_ITS | Encounter Summary ---
Author Organization [facility] Address [address] [facility] [place] [address] Care Team Providers Care Hat Cutter Name Role Phone John Sparks DO Unavailable [phone] Praveen Belcher MD Primary Care Provider [phone] Encounter Details Date Type Department Care Team (Late st Contact Info) Description 04/04/2019 Lab Requisition [facility] [address] [facility] [place] [id number] Paxton Fernando MD [address] [place] [address] Social History Tobacco Use Types [...] Priority Date/Time Associated Diagnosis Comments DERMATOPATHOLOGY Routine 04/03/2019 12:0 0 AM CDT documented in this encounter Results * DERMATOPATHOLOGY (04/03/2019 12:00 AM CDT) Case Report Dermatopathology Report ? Case: [id number] ? Authorizing Provider: ??Paxton Fernando MD ?Collected: ? 04/03/2019 12:00 AM ? Ordering Location: ? [facility] ?Received: ?04/04/2019 10:49 AM ? Pathologist: ? Gifty Delacruz MD ? Specimen: ?Skin, right scalp above ear ? 4:28 PM CDT DERMATOPATHOLOGY LABORATORY Final Diagnosis Specimen A. 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 4:28 PM CDT DERMATOPATHOLOGY LABORATORY Gross Description Specimen A: Received is one formalin filled container labeled with the patient's name and designated right scalp above ear. The specimen consists of a shave biopsy measuring [id number]. Jar 0. 4:28 PM T DERMATOPATHOLOGY LABORATORY Microscopic Description Specimen A. SKIN, right scalp above ear: Within the dermis there are nodular aggregates of basaloid cells associated with fibromyxoid stroma and epithelial-stromal clefts. At the advancing margin of the neoplasm, there are smaller angulated nests that infiltrate the dermis. 4:28 PM CDT DERMATOPATHOLOGY LABORATORY Disclaimer An external and internal positive and negative controls are appropriate for the histochemical, immunohistochemical and immunofluorescence stain(s) in this case (if any), except where stated explicitly. The performance characteristics of the stain(s) cited in this report were developed and its performance characteristic determined by the Dermatopathology Laboratory at [facility], directed by Dr. Erendira Delacruz. These tests need not be, and therefore are not, approved by the [place] Food and Drug Administration. The tests are used for clinical purposes. Billing Codes Specimen Charges Stain Charges 42921 1 9 4:28 PM CDT DERMATOPATHOLOGY LABORATORY Embedded Images 9 4:28 PM CDT DERMATOPATHOLOGY LABORATORY Pathology/Cytolog y TISSUE SPECIMEN FROM SKIN / Unknown 04/03/2019 04/04/2019 10:49 AM CDT Paxton Fernando MD LAB - PATHOLOGY/CYTO LOGY ORDERABLES DERMATOPATHOLOGY LABORATORY [facility] - Department of Dermatology [address] [place] [address] 5th Floor Lab [address] [phone] documented in this encounter Visit Diagnoses Not on filedocumented in this encounter Care Teams Hat Cutter Relationship Specialty Start Date End Date John Sparks DO [address] [place] [address] PCP - Attributed-[facility] 05/27/19 09/24/19 Praveen Belcher MD [address] [place] [phone] PCP - General 04/04/19 documented as of this encounter
--- OUTSIDE RECORDS SUMMARY | 2024-06-28 12:51 | XMS_ITS | Clinical Summary ---
Author Organization [facility] Address [facility] 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 Gender Identity Not on file Sexual Orientation Not on file Plan of Treatment Health Maintenance Due Date Last Done Comments DTaP, Tdap and Td Vaccines ( 1 - Tdap) 02/23/1954 Zoster Vaccines (1 of 2) 1987 Annual Medicare Wellness Visit 2002 RSV Immunization or 60+ Years (1 - 1-dose 75+ series) 02/23/2012 Pneumococcal Vaccine: 65+ Years (2 of 2 - PPSV23 or PCV20) 05/12/2018 05/12/2017 COVID-19 Vaccine (2023-2 5 season) 2024 Influenza Adult (#1) 2024 03/18/2020, 04/05/2019 Meningococcal Vaccine Aged Out No belinda rhianna eligible based on patient's age to complete this topic RSV Immunizations Under 20 Months Aged Out No longer eligible b ased on patient's age to complete this topic Insurance [employer] Care Teams Civil Lawyer Relationship Specialty Start Date End Date John Sparks DO [address] [place] [address] PCP - General INTERNAL MEDICINE 06/06/20
--- OUTSIDE RECORDS SUMMARY | 2024-06-28 12:51 | XMS_ITS | Encounter Summary ---
Author Organization [facility] Address [address] [place] [address] [place] [address] Care Team Providers Care Crystal Flat Grinder Name Role Phone John Sparks DO Primary Care Provider [phone] Reason for Visit * Physical Therapy (Routine) - Closed Specialty Diagnoses / Procedures Referred By Evelia t Referred To Contact Physical Medicine and Rehab / [facility] Physical Therapy Diagnoses RUE / IGOR / [employer]ET[employer] Procedures TREATMENT 45 MIN Karen Lambert MD [address] [place] [address] Phone: tel: fax: Karen Lambert MD [address] [place] [address] Phone: tel: fax: Referral ID Status Reason Start Date Expiration Date Visits Re quested Visits Authorized [id number] Closed 06/18/2020 06/19/2021 5 5 Encounter Details Date Type Department Care Team (Late st Contact Info) Description 06/18/2020 12:42 PM CHROME WORKER - 06/18/2020 11:59 PM CHROME WORKER Hospital Encounter [facility] [place] [address] John Sparks, [address] [address] Karen Lambert MD [address] [place] [address] Discharge Disposition: Home or Self Care (Routine Discharge) Social History Tobacco Use Types Packs/Day Years Used Date Smoking Tobacco: Never Assessed Sex and Gender Information Value Date Recorded Sex Assigned at Not on file 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 No / Unsure 06/18/2020 12:37 PM CHROME WORKER documented as of this encounter Plan of Treatment Not on file documented as of this encounter Procedures Procedure Name Priority Date/Time Associated Diagnosis Comments EMG Routine 06/18/2020 1:10 PM CHROME WORKER Paresthesia documented in this encounter Results * EMG (06/18/2020 1:10 PM CHROME WORKER) 06/18/2020 1:10 PM CHROME WORKER Narrative ESCRIPTION - 06/18/2020 2:48 PM CHROME WORKER COMPLAINT: ??Tingling and numbness, right worse than [...] carpal tunnel release. D: ??06/18/2020 01:10 PM #[id number] T: ??06/18/2020 01:46 PM /NTS us John Sparks DO NEUROLOGY ORDERABLES Final Resu lt ESCRIPTION documented in this encounter Visit Diagnoses Diagnosis Paresthesia Disturbance of skin sensation documented in this encounter Care Teams Crystal Flat Grinder Relationship Specialty Start Date End Date John Sparks DO [address] [address] PCP - General INTERNAL MEDICINE 06/06/20 documented as of this encounter
--- OUTSIDE RECORDS SUMMARY | 2024-06-28 12:52 | XMS_ITS | Encounter Summary ---
Author Organization [facility] Address [address] [place] [address] Care Team Providers Care Electrophonic Engineer Name Role Phone ClareValentínJohn Primary Care Provider [phone] Reason for Referral * Diagnostic Imaging (Routine) - Closed Specialty Diagnoses / Procedures Referred By Contac t Referred To Contact Diagnoses Bilateral carotid artery stenosis Procedures US Carotids Duplex Bilateral Alan Thomas MD [address] [place] [address] [address] [address] Phone: tel: fax: [facility] [address] [place] [phone] Referral ID Status Reason Start Date Expiration Date Visits Re quested Visits Authorized [id number] Closed 09/22/2021 10/22/2022 1 1 Reason for Visit * Reason Comments Follow-up 1 year follow up Car otid Stenosis SDS 09/22/21 Encounter Details Date Type Department Care Team (Late st Contact Info) Description 09/22/2021 10:30 AM CDT Office Visit [facility] Vascular and Vein Surgery [address] [place] [address] Alan Thomas MD [address] [place] [id number] Bilateral carotid artery stenosis (Primary Dx); Hyperlipidemia, unspecified hyperlipidemia type; Primary hypertension; Type 2 diabetes mellitus with other specified complication, without long-term current use of insulin (HCC) Social History Tobacco Use Types Packs/Day Years Used Date Smoking Tobacco: Never Smokeless Tobacco: Never Sex and Gender Information Value Date Recorded Sex Assigned at Not on file 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 Gender Identity Not on file Sexual Orientation Not on file documented as of this encounter Last Filed Vital Signs Vital Sign Reading Time Taken Comments Blood Pressure 149/82 09/22/2021 10:48 AM CDT Pulse 76 09/22/2021 10:48 AM CDT Temperature - - Respiratory Rate - - Oxygen Saturation - - Inhaled Oxygen Concentration - - Weight 86.6 kg (191 lb) 09/22/2021 10:48 AM CDT Height 179.1 cm (5' 10.5 ) 09/22/2021 10:48 AM C DT Body Mass Index 27.02 09/22/2021 10:48 AM CDT documented in this encounter Progress Notes * Alan Thomas MD - 09/22/2021 10:30 AM CDT Subjective/Objective Patient ID: Naeem Pitt is a 86 y.o. male. Chief Complaint Carotid stenosis Chief Complaint Patient presents with ??? Follow-up 1 year follow up Carotid Stenosis SDS 09/22/21 HPI The patient is an 86-year-old male history of carotid artery occlusive disease who is status post right carotid enterectomy in 2013. He has done well following the surgery with no neurologic symptoms. He comes in now for follow-up Current Outpatient Medications: ??? aspirin 81 mg enteric coated tablet, Take 81 mg by mouth daily, Disp: , Rfl: ??? atenolol (TENORMIN) 50 mg tablet, , Disp: , Rfl: ??? atorvastatin (LIPITOR) 20 mg tablet, , Disp: , Rfl: ??? cholecalciferol (VITAMIN D-3) 1,000 unit, Take 1,000 Units by mouth daily, Disp: , Rfl: ??? finasteride (PROSCAR) 5 mg tablet, , Disp: , Rfl: ??? hydroCHLOROthiazide (HYDRODIURIL) 12.5 mg tablet, , Disp: , Rfl: ??? losartan (COZAAR) 100 mg tablet, , Disp: , Rfl: ??? metFORMIN (GLUCOPHAGE) 500 mg tablet, , Disp: , Rfl: ??? omeprazole (PriLOSEC) 20 mg capsule, , Disp: , Rfl: ??? OneTouch Ultra Blue Test Strip strip, , Disp: , Rfl: ??? phytonadione, vit K1, (PHYTONADIONE, VITAMIN K1,) 100 mcg tablet, Take by mouth daily, Disp: , Rfl: ??? vitamin E 400 unit capsule, 100 Units daily, Disp: , Rfl: ??? triamcinolone (KENALOG) 0.1 % cream, , Disp: , Rfl: No Known Allergies Past Medical History: Diagnosis Date ??? DM (diabetes mellitus) (HCC) ??? Hyperlipidemia ??? Hypertension Past Surgical History: Procedure Laterality Date ??? CARPAL TUNNEL RELEASE Right 07/2020 Family History Problem Relation Age of Onset ??? Heart disease Mother ??? Colon cancer Father Social History Socioeconomic History ??? Marital status: Tobacco Use ??? Smoking status: Never Smoker ??? Smokeless tobacco: Never Used ROS Constitutional: No change in appetite. No recent weight loss. No fevers,chills or sweats. HENT: No trouble swallowing. No tinnitus. Eyes: No visual disturbances. Respiratory: No shortness of breath. No cough or sputum production. No wheezing. Cardiovascular: No chest pain. No palpitations. Gastrointestinal: No abdominal pain. No nausea, vomiting or diarrhea. Genitourinary: No dysuria. No hematuria. Extremities: No claudication Musculoskeletal: No joint pains. No back pain. No myalgias. Neurologic: No dizziness. No syncope. No weakness. Endocrine: No polydipsia, polyphagia or polyuria. Skin: No rashes. No discoloration. Hematologic: No bleeding. No easy bruising. Psychiatric: No anxiety. No behavioral changes. No mood swings. PE Constitutional: Alert and oriented Eyes: Extraocular movements full, sclerae anicteric HENT: Head atraumatic and normocephalic Neck is supple No carotid bruits Chest: Effort normal. Breath sounds normal. Cardiovascular: S1 and S2 are normal. No murmurs, rubs or gallops appreciated. Extremities: femoral, polpliteal palpable. Posterior tibial and dorsalis pedis pulses palpable. Abdominal: Soft, nontender, no masses. Normal bowel sounds. Musculoskeletal: Normal range of motion. Neurologic: Cranial nerves 2-12 intact. Strength and sensation intact bilaterally. Skin: Warm and dry. No rashes. No discoloration. Hematologic/Lymphatic: No adenopathy, no ecchymoses. Psychiatric: Normal mood and affect. Behavior normal.Judgment normal. IMAGING RESULTS Carotid duplex scan was visualized and reviewed by me. The patient has no recurrence stenosis in right internal carotid artery. There is also no significant stenosis in the left internal carotid artery ASSESSMENT AND PLAN Assessment/Plan Diagnoses and all orders for this visit: Bilateral carotid artery stenosis (Primary) - US Carotids Duplex Bilateral; Future Hyperlipidemia, unspecified hyperlipidemia type Primary hypertension Type 2 diabetes mellitus with other specified complication, without long-term current use of insulin ([facility]) Impression 1. Carotid stenosis. The patient has done well following right carotid endarterectomy. He has had no recurrence stenosis. He has no neurologic symptoms. Plan: Follow-up in 1 year Impression 2. Hypertension. Patient's hypertension is currently under good control Plan: Hypertensive management as per primary care provider. Anti hypertensive medications were reviewed and will continue without changes Impression 3. Hyperlipidemia. The patient is currently on a statin and tolerating it well Plan: Hyperlipidemia management as per primary care provider. Statin medications were reviewed and will continue without changes Impression 4. Diabetes. The patient's diabetes is currently under good control Plan: Diabetic management as per primary care provider . Diabetic medication were reviewed and willcontinue without changes documented in this encounter Plan of Treatment Not on file documented as of this encounter Results * US Carotids Duplex Bilateral (09/21/2022 9:19 AM CDT) Anatomical Region Laterality Modality Vascular Bilateral Ultrasound 09/21/2022 Narrative 09/29/2022 11:51 AM CDT [employer] Job ID: [id number] [employer] Document ID: [id number] Dictated date/time: [id number] REASON FOR STUDY Carotid stenosis. Vertebral artery flow is antegrade bilaterally. ??There is minimal plaque in the right internal carotid artery with a less than 50% diameter stenosis. ??There is moderate plaque left internal carotid artery with a 50% to 79% diameter stenosis. ??There is no significant increase in peak systolic velocities. ??Systolic velocity in the right internal carotid artery velocity is 54 cm/sec. ??There is a moderate increase in peak systolic velocity in the left internal carotid, velocity is 144 cm/sec. ?? The external carotid and common carotid artery velocities are normal bilaterally. IMPRESSION No significant recurrent stenosis right internal carotid artery status post endarterectomy, moderate stenosis left internal carotid artery measuring 50% to 79% in diameter. Job ID/Internal Job ID: ??[id number] [facility] Royer Thomas MD [facility] PROCEDURES Final Res ult documented in this encounter Visit Diagnoses Diagnosis Bilateral carotid artery stenosis- Primary Occlusion and stenosis of carotid artery without mention of cerebral infarction Hyperlipidemia, unspecified hyperlipidemia type Primary hypertension Unspecified essential hypertension Type 2 diabetes mellitus with other specified complication, without long-term current use of insulin (HCC) Bilateral carotid artery stenosis Occlusion and stenosis of carotid artery without mention of cerebral infarction documented in this encounter Historical Medications * This list may reflect changes made after this encounter. aspirin 81 mg enteric coated tablet Take 1 tablet (81 mg total) by mouth daily added in this encounter Care Teams Electrophonic Engineer Relationship Specialty Start Date End Date John Sparks DO PCP - General Internal Medicine 11/01/18 09/20/22 documented as of this encounter
--- OUTSIDE RECORDS SUMMARY | 2024-06-28 12:52 | XMS_ITS | Encounter Summary ---
Author Organization [facility] Address [address] [place] [address] Care Team Providers Care Aeronautical Design Engineer Name Role Phone John Sparks DO Primary Care Provider [phone] Encounter Details Date Type Department Care Team (Late st Contact Info) Description 09/16/2020 9:02 AM CDT Hospital Encounter [facility] Alan Thomas MD [address] [place] [address] Social History Tobacco Use Types Packs/Day Years Used Date Smoking Tobacco: Never Smokeless Tobacco: Never Sex and Gender Information Value Date Recorded Sex Assigned at Not on file 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 Gender Identity Not on file Sexual Orientation Not on file documented as of this encounter Medications at Time of Discharge atenolol (TENORMIN) 50 mg tablet 05/02/2019 atorvastatin [...] total) daily documented as of this encounter Plan of Treatment Not on file documented as of this encounter Procedures Procedure Name Priority Date/Time Associated Diagnosis Comments US CAROTIDS DUPLEX BILATERAL 09/16/2020 12:00 AM CDT documented in this encounter Results * US Carotids Duplex Bilateral (09/16/2020 12:00 AM CDT) Anatomical Region Laterality Modality Vascular Bilateral Ultrasound 09/16/2020 11:4 1 AM CDT Narrative 09/16/2020 1:33 PM CDT ? Patient Name: STEPHANIE PITT ? MR#: [id number] ?? [id number] ? Status: REG CLI ? D.O.B: 1935 Age: ??85 ?Sex: Male ? ADM/SER Dt: 03/23/21 ?Disch Dt: ? LOC: [facility] ? Ordering Phy: William,Alan Tipton MD ? Order #[id number] ? Carotid Ultrasound Bilateral ?? Alan Thomas MD ? Signed ?? DATE OF SERVICE: ?? 09/16/2020 ? TYPE OF REPORT: ??Bilateral Carotid Artery Duplex Exam ? REASON FOR STUDY: ??Carotid stenosis. ? FINDINGS: ??Vertebral artery flow is antegrade bilaterally. ??There is minimal plaque in both internal carotid arteries of less than 50% diameter stenoses. ??There is no significant increase in peak systolic velocity in either internal carotid artery. ??The peak systolic velocity on the right is 68 cm/s and on the left is 102 cm/s. ? IMPRESSION: ??No significant recurrent stenosis, right internal carotid artery, status post endarterectomy. ??No significant stenosis, left internal carotid artery. ? NTS ? Job: [id number] ? Dictated By: Alan Thomas MD ?? Dictated For: Alan Thomas MD ? <Electronically signed by Alan Thomas MD> ? 09/16/20 1239 ?? Resulting Agency Comment O Procedure Note Alan Thomas MD - 09/16/2020 Patient Name: STEPHANIE PITT #: [id number] Status: REG CLI D.O.B: 1935 Age: 85Sex: Male ADM/SER Dt: 09/16/20 Disch Dt:LOC: [facility] Ordering Phy: Alan Thomas MD Order #[id number] Carotid Ultrasound Bilateral Alan Thomas MD Signed DATE OF SERVICE: 09/16/2020 TYPE OF REPORT: Bilateral Carotid Artery Duplex Exam REASON FOR STUDY: Carotid stenosis. FINDINGS: Vertebral artery flow is antegrade bilaterally. There isminimal plaque in both internal carotid arteries of less than 50% diameter stenoses. There is nosignificant increase in peak systolic velocity in either internal carotid artery. The peaksystolic velocity on the right is 68 cm/s and on the left is 102 cm/s. IMPRESSION: No significant recurrent stenosis, right internal carotidartery, status post endarterectomy. No significant stenosis, left internal carotid artery. NTS Job: [id number] Dictated By: Alan Thomas MD Dictated For: Alan Thomas MD <Electronically signed by Alan Thomas MD> 09/16/20 1239 us Alan Thomas MD IMG US PROCEDURES Final Res ult documented in this encounter Visit Diagnoses Not on filedocumented in this encounter Care Teams Aeronautical Design Engineer Relationship Specialty Start Date End Date John Sparks DO PCP - General Internal Medicine 11/01/18 09/20/22 documented as of this encounter
--- OUTSIDE RECORDS SUMMARY | 2024-06-28 12:52 | XMS_ITS | Encounter Summary ---
Author Organization [facility] Address [address] [place] [address] Phone Care Team Providers Care Tapper Helper Name Role Phone John Sparks DO Primary Care Provider [phone] Reason for Visit * Dermatology (Routine) - Canceled Specialty Diagnoses / Procedures Referred By Contac t Referred To Contact Diagnoses Squamous cell carcinoma of skin of other parts of face Procedures Mohs surgery - Paxton Fernando MD [address] [place] [address] Phone: tel: fax: Genna Amaya MD Phone: tel: fax: Referral ID Status Reason Start Date Expiration Date V isits Requested Visits Authorized [id number] Canceled 03/23/2021 03/23/2022 1 1 Encounter Details Date Type Department Care Team (Latest Contact Info) Description 04/22/2021 10:15 AM CDT Procedure visit [facility] Dermatology [address] [place] [address] [address] [facility] [place] [facility] [place] [address] Genna Amaya MD [address] [place] [address] [address] [place], [place] [id number] Squamous cell carcinoma of skin of other parts of face (Primary Dx) Social History Tobacco Use Types Packs/Day Years Used Date Smoking Tobacco: Never Smokeless Tobacco: Never Sex and Gender Information Value Date Recorded Sex Assigned at Not on file 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 Gender Identity Not on file Sexual Orientation Not on file documented as of this encounter Last Filed Vital Signs Vital Sign Reading Time Taken Comments Blood Pressure 168/90 04/22/2021 9:37 AM CDT Pulse 73 04/22/2021 9:37 AM CDT Temperature - - Respiratory Rate - - Oxygen Saturation 98% 04/22/2021 9:37 AM CDT Inhaled Oxygen Concentration - - Weight - - Height - - Body Mass Index - - documented in this encounter Progress Notes * Osmani Dasilva MD - 04/22/2021 10:15 AM CDT [facility] [address] [place] [address] OPERATIVE REPORT NAME: Naeem Pitt : 1935 DATE: 04/22/21 Operation: MOHS MICROGRAPHIC SURGERY Pre-operative diagnosis: squamous cell carcinoma Post-operative diagnosis: Same Location: let forehead Pre-operative size: 0.8 x 1.0 cm Post-operative size: 1.6 x 1.6 cm Surgeon: Gifty Amaya MD Site Administrator Surgeon: Osmani Dasilva MD, Soumya Salinas MD Medical Staff: Marie Dunaway Anesthesia: 1% lidocaine with epinephrine, 1:100,000 x 4 cc Indications: location, ill-defined margins, involvement of sensitive cosmetic and/or functional structures and histology Preparation: The patient was brought into the operating room, donned a gown and surgical cap and lay down on the operating table. The surgical site was prepped with an antiseptic solution, infiltrated with local anesthetic and draped with sterile sheets and towels. This was repeated for each surgical stage of the procedure. 1. The lesion was aggressively debulked with a scalpel and dermal curet. 2. A layer of tumor-containing tissue with a thin margin of normal-appearing tissue was excised. 3. Hemostasis was achieved with spot electrocoagulation and suture ligatures as needed. 4. The resected tissue was oriented relative to the surgical defect in the patient and a map of thedefect was drawn. Orientation was aided with connor quintana around the defect. 5. A pressure dressing was affixed to the defect, the skin was cleansed of antiseptic solution and the patient was taken back to the waiting room. 6. The resected tissue was divided into appropriately sized specimens while maintaining orientationrelative to the map. 7. The specimens were individually marked with tissue dyes with corresponding markings on the map. 8. The specimens were individually processed as horizontal frozen sections that allowed examinationof the entire superficial peripheral as well as deep margins. 9. The frozen sections of each specimen were stained with hematoxylin and eosin, and systematicallyexamined by the surgeon for the presence of tumor. If tumor cells were found in any margin, a notation in red was made on the map and the patient was returned to the operating room for additional surgery directed only at the areas with residual tumor. The preparation and steps 2-9 were repeated until no more tumor cells were identified in any of the horizontal frozen sections. Stage 1 included multiple microscopic sections of 1 tissue specimens with no tumor present. Scar noted. At this point, no further tumor cells were identified. Tumor eradication was complete after a totalof 1 stage of surgery in which multiple microscopic sections of 1 tissue specimens were examined. Wound management: Repaired by Gifty Amaya MD and elementary assistant principal (see operative report). The patient was discharged in stable condition. Osmani Dasilva MD PGY4 Dermatology Resident Cosigned by Genna Amaya MD at 04/22/2021 4:38 PM CDT Associated attestation - Genna Amaya MD - 04/22/2021 4:38 PM CDT IErendira MD performed or directly supervised my fellow in all aspects of the Mohs surgery procedure including excision of the tumor, mapping/inking of tissue, and interpretation of histopathological specimen(s). * Osmani Dasilva MD - 04/22/2021 10:15 AM CDT [facility] [address] [place] [address] MOHS CONSULT NOTE NAME: Naeem Dukes Sweetie : 1935 DATE: 04/22/21 CC: SCC of the left superior forehead HPI: Naeem Pitt presents today for evaluation of SCC of the left superior forehead. Duration: ~1 year. Symptoms: none. Prior treatment: none. Personal history of skin cancer: NMSC, previous Mohs surgery 2015 and 2018 Family history of skin cancer: none ROS: Constitutional: No fever, no chills, no unintended weight loss Allergies/Medications/PMH: Reviewed in EMR. PHYSICAL EXAM: Vitals Signs: Vitals BP 168/90 Pulse 73 SpO2 98% GENERAL: Appears well. No acute distress. ORIENTATION: Alert and oriented x3. MOOD/AFFECT: Normal affect. GONSALEZ SKIN TYPE: II FACE: 0.8 x 1.0 cm pink plaque on the left superior forehead EARS: No abnormalities noted. SCALP/HAIR: No abnormalities noted. EYES/EYELIDS: No scleral icterus. No abnormalities noted of conjunctiva or eyelids. LIPS/ORAL MUCOSA: No abnormalities noted. NECK: No abnormalities noted. DIGITS/NAILS: No cyanosis, clubbing, or nail abnormality. EXTREMITIES (RUE): No abnormalities noted. EXTREMITIES (LUE): No abnormalities noted. --Lesion identified and verified with patient's assistance using a handheld mirror and/or referringprovider photos. Patient agrees with location. ASSESSMENT AND PLAN: 1. SCC of the left superior forehead, biopsy proven. - Treatment options discussed included: Mohs micrographic surgery - Will plan for Mohs micrographic surgery - Indications for MMS include: location, ill-defined borders, histology, immunosuppression, involvement of sensitive cosmetic structures/features - Likely repair options reviewed including: linear repair, possible flap - Risks and benefits were discussed including, but not limited to, scarring, bleeding, infection, pain, swelling, bruising, dyspigmentation, asymmetry, deformity, recurrence, need for further treatment, allergy, motor and sensory nerve injury. - The patient and/or family members demonstrated understanding of the points discussed - Time was provided for patient questions - Special considerations: NO pacemaker, defibrillator, epi sensitivity, allergy to anesthesia, latex allergy 2. Prophylaxis for MMS. - None required 3. Medication restrictions for MMS. - none Photos obtained, pre-operative instructions provided, Mohs micrographic surgery booklet provided. Patient will proceed with surgery today. Osmani Dasilva MD Cosigned by [place], Genna Reilly MD at 04/22/2021 4:38 PM CDT Associated attestation - Genna Amaya MD - 04/22/2021 4:38 PM CDT I have seen and examined the patient. I agree with the findings and plan of care as documented in the resident/fellow's note. * Osmani Dasilva MD - 04/22/2021 10:15 AM CDT [facility] [address] [place] [address] OPERATIVE REPORT NAME: Naeem Pitt : 1935 DATE: 04/22/21 SURGEON: Gifty Amaya MD BAND SAW RUNNER SURGEON: Osmani Dasilva MD, Soumya Salinas MD NURSES: Marie Dunaway INDICATIONS: This patient was left with a 1.6 x 1.6 cm defect involving the left superior forehead area following Mohs surgery for a squamous cell carcinoma. Various closure modalities were discussed with the patient and it was decided that a complex repair would best preserve normal anatomical and functional re lationships. Indications for complex repair include extensive undermining exceeding the maximum diameter of the defect measured perpendicular to the long axis of closure. After a discussion of the risks of bleeding, scarring, infection, pain and wound dehiscence, informed consent was obtained and the patient underwent the procedure as follows. PROCEDURE: The patient was taken to the operative suite and placed on a surgery table. The area was anesthetized with 1% lidocaine with epinephrine, 1:100,000. The area was washed with Chlorhexidine and draped with sterile towels. The resulting defect was reconstructed in the following manner. The wound edgeswere undermined extensively, beyond the 1.6cm width of the defect and debeveled, with care taken topreserve neurologic and vascular structures. Hemostasis was obtained by spot electrocoagulation. Deep dermal closure was achieved using buried 5-0 Monocryl absorbable sutures. Cutaneous redundancies were removed from the edges of the wound by triangulation. Final cutaneous approximation was achieved with a running 6-0 Fast absorbing gut suture. The final wound length was 4 cm. Estimated blood loss was less than 10 cc. A sterile pressure dressing was applied and wound care instructions, with handout, were given. The patient was discharged from the Surgery Unit ambulatory with stable vital signs. 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 POST-OP PRESCRIPTIONS: Tylenol prn for pain. Osmani Dasilva MD PGY4 Dermatology Resident Cosigned by Genna Amaya MD at 04/22/2021 4:38 PM CDT Associated attestation - Genna Amaya MD - 04/22/2021 4:38 PM CDT I was present for the goff portion of the procedure and remained immediately available for the remainder of the procedure. documented in this encounter Plan of Treatment Not on file documented as of this encounter Visit Diagnoses Diagnosis Squamous cell carcinoma of skin of other parts of face- Primary documented in this encounter Care Teams Tapper Helper Relationship Specialty Start Date End Date John Sparks DO PCP - General Internal Medicine 11/01/18 09/20/22 documented as of this encounter
--- OUTSIDE RECORDS SUMMARY | 2024-06-28 12:52 | XMS_ITS | Encounter Summary ---
Author Organization [facility] Healthcare Address [address] [place] [address] Care Team Providers Care Extruding Press Operator Name Role Phone John Sparks Primary Care Provider [phone] Reason for Referral * Diagnostic Imaging (Routine) - Closed Specialty Diagnoses / Procedures Referred By Evelia rodriguez Referred To Contact Diagnoses Bilateral carotid artery occlusion Procedures US Carotids Duplex Bilateral Alan Thomas MD [facility]0 [facility] [address] [place] [address] Phone: tel: fax: [facility] Office Building [address] [place] [phone] Referral ID Status Reason Start Date Expiration Date Visits Re quested Visits Authorized [id number] Closed 12/09/2020 01/08/2022 1 1 Reason for Visit * Diagnostic Imaging (Routine) - Closed Specialty Diagnoses / Procedures Referred By Evelia rodriguez Referred To Contact Diagnoses Bilateral carotid artery occlusion Procedures US Carotids Duplex Bilateral Alan Thomas MD [address] [place] [address] [address] [place] [address] Phone: tel: fax: [facility] Medical Office Building [address] [place] [phone] Referral ID Status Reason Start Date Expiration Date Visits Re quested Visits Authorized [id number] Closed 12/09/2020 01/08/2022 1 1 Encounter Details Date Type Department Care Team (Latest Contact Info) Description 09/22/2021 9:50 AM CDT - 09/22/2021 11:59 PM CDT Hospital Encounter [facility] Medical Office Building [address] [address] Bilateral carotid artery occlusion Discharge Disposition: Discharge to home or self care Social History Tobacco Use Types Packs/Day Years Used Date Smoking Tobacco: Never Smokeless Tobacco: Never Sex and Gender Information Value Date Recorded Sex Assigned at Not on file 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 Vertebral artery flow is antegrade bilaterally. ??There is minimal plaque in both internal carotid arteries of less than 50 percent diameter stenoses. ??There is no significant increase in peak systolic velocity in either internal carotid artery. ??Velocity on the right is 66 centimeter/second and on the left is 102 centimeter/second. IMPRESSION No significant recurrent stenosis right internal carotid artery status post endarterectomy. ??No significant stenosis left internal carotid artery. Job ID/Internal Job ID: ??[id number] Alan Thomas MD [facility] PROCEDURES Final Res ult documented in this encounter Visit Diagnoses Diagnosis Bilateral carotid artery occlusion Occlusion and stenosis of carotid artery without mention of cerebral infarction documented in this encounter Care Teams Extruding Press Operator Relationship Specialty Start Date End Date John Sparks DO PCP - General Internal Medicine 11/01/18 09/20/22 documented as of this encounter
--- OUTSIDE RECORDS SUMMARY | 2024-06-28 12:52 | XMS_ITS | Encounter Summary ---
Author Organization [facility] Address [address] [facility] [address] [place] [address] Care Team Providers Care Staff Submarine Warfare Officer Name Role Phone John Sparks Primary Care Provider [phone] Reason for Referral * Diagnostic Imaging (Routine) - Closed Specialty Diagnoses / Procedures Referred By Contac t Referred To Contact Diagnoses Bilateral carotid artery occlusion Procedures US Carotids Duplex Bilateral Alan Thomas MD [address] [facility] [address] [facility] [place] [address] Phone: tel: fax: [facility] Medical Office Building [address] [place] [phone] Referral ID Status Reason Start Date Expiration Date Visits Re quested Visits Authorized [id number] Closed 12/09/2020 01/08/2022 1 1 Encounter Details Date Type Department Care Team (Late st Contact Info) Description 12/09/2020 Orders Only [facility] Vascular and Vein Surgery [address] [facility] [address] [place] [address] Alan Thomas MD [facility] [address] [address] Bilateral carotid artery occlusion (Primary Dx) Social History Tobacco Use Types Packs/Day Years Used Date Smoking Tobacco: Never Smokeless Tobacco: Never Sex and Gender Information Value Date Recorded Sex Assigned at Not on file 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 Vertebral artery [...] internal carotid artery. Job ID/Internal Job ID: ??[id number] Alan Thomas MD [facility] PROCEDURES Final Res ult documented in this encounter Visit Diagnoses Diagnosis Bilateral carotid artery occlusion- Primary Occlusion and stenosis of carotid artery without mention of cerebral infarction Bilateral carotid artery occlusion Occlusion and stenosis of carotid artery without mention of cerebral infarction documented in this encounter Care Teams Staff Submarine Warfare Officer Relationship Specialty Start Date End Date John Sparks DO PCP - General Internal Medicine 11/01/18 09/20/22 documented as of this encounter
--- OUTSIDE RECORDS SUMMARY | 2024-06-28 12:52 | XMS_ITS | Encounter Summary ---
Author Organization [facility] Healthcare Address [address] [place] [address] Care Team Providers Care Field Staff Manager Name Role Phone Dung Ignacio MD Primary Care Provider [phone] Reason for Referral * Diagnostic Imaging (Routine) - Closed Specialty Diagnoses / Procedures Referred By Evelia rodriguez Referred To Contact Diagnoses Bilateral carotid artery stenosis Procedures US Carotids Duplex Bilateral Alan Thomas MD [facility] [address] [place] [address] Phone: tel: fax: [facility] Medical Office Building [address] [place] [phone] Referral ID Status Reason Start Date Expiration Date Visits Re quested Visits Authorized [id number] Closed 09/22/2021 10/22/2022 1 1 Reason for Visit * Diagnostic Imaging (Routine) - Closed Specialty Diagnoses / Procedures Referred By Evelia rodriguez Referred To Contact Diagnoses Bilateral carotid artery stenosis Procedures US Carotids Duplex Bilateral Alan Thomas MD [address] [place] [address] [address] [address] Phone: tel: fax: [facility] Medical Office Building [address] [place] [phone] Referral ID Status Reason Start Date Expiration Date Visits Re quested Visits Authorized [id number] Closed 09/22/2021 10/22/2022 1 1 Encounter Details Date Type Department Care Team (Latest Contact Info) Description 09/21/2022 8:38 AM CDT - 09/21/2022 11:59 PM CDT Hospital Encounter [facility] Medical Office Building [address] [address] Bilateral carotid artery stenosis Discharge Disposition: Discharge to home or self care Social History Tobacco Use Types Packs/Day Years Used Date Smoking Tobacco: Never Smokeless Tobacco: Never Sex and Gender Information Value Date Recorded Sex Assigned at Not on file 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 Vertebral artery [...] 79% in diameter. Job ID/Internal Job ID: ??[id number] Alan Thomas MD [facility] PROCEDURES Final Res ult documented in this encounter Visit Diagnoses Diagnosis Bilateral carotid artery stenosis Occlusion and stenosis of carotid artery without mention of cerebral infarction documented in this encounter Care Teams Field Staff Manager Relationship Specialty Start Date End Date Dung Ignacio MD [address] [address] PCP - General Internal Medicine 09/21/22 documented as of this encounter
--- OUTSIDE RECORDS SUMMARY | 2024-06-28 12:53 | XMS_ITS | Encounter Summary ---
Author Organization [facility] Address [address] [facility] [address] [place] [address] Care Team Providers Care Life Assurance Representative Name Role Phone John Sparks DO Primary Care Provider Reason for Visit * Reason Comments Follow-up 1yr Carotid Encounter Details Date Type Department Care Team (Late st Contact Info) Description 09/16/2020 10:00 AM CDT Office Visit [facility] Vascular and Vein Surgery [address] [facility] [address] [place] [address] Juan Salazar, WILDLIFE VETERINARIAN [address] [facility] [address] [facility] [place] [address] Occlusion and stenosis of bilateral carotid arteries (Primary Dx); Hyperlipidemia, unspecified hyperlipidemia type; Essential hypertension Social History Tobacco Use Types Packs/Day Years Used Date Smoking Tobacco: Never Smokeless Tobacco: Never Sex and Gender Information Value Date Recorded Sex Assigned at Not on file 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 Gender Identity Not on file Sexual Orientation Not on file documented as of this encounter Last Filed Vital Signs Vital Sign Reading Time Taken Comments Blood Pressure 120/73 09/16/2020 9:27 AM CDT Pulse 90 09/16/2020 9:27 AM CDT Temperature - - Respiratory Rate - - Oxygen Saturation - - Inhaled Oxygen Concentration - - Weight 90.7 kg (200 lb) 09/16/2020 9:27 AM CDT Height 179.1 cm (5' 10.5 ) 09/16/2020 9:27 AM CD T Body Mass Index 28.29 09/16/2020 9:27 AM CDT documented in this encounter Progress Notes * Juan Salazar, SUSU - 09/16/2020 10:00 AM CDT Images from the original note were not included. Subjective/Objective Patient ID: Naeem Pitt is a 85 y.o. male. Chief Complaint Carotid stenosis History of Present Illness 85 y.o. male with history of hypertension, hyperlipidemia and carotid stenosis returns today for scheduled follow-up. Patient is status post right carotid endarte[place] [address] Antonio. Patient has been doing well in the interim and denies any focal or lateralizing neurological deficits consistent with TIA, stroke or amaurosis fugax. Patient has been compliant with current risk factor modification and has no complaints or concerns at this time. Current Outpatient Medications: ??? atenolol (TENORMIN) 50 mg tablet, , [...] by mouth daily, Disp: , Rfl: ??? triamcinolone (KENALOG) 0.1 % cream, , Disp: , Rfl: ??? vitamin E 400 unit capsule, 100 Units daily, Disp: , Rfl: No Known Allergies Past Medical History: Diagnosis Date ??? DM (diabetes mellitus) (CMS/HCC) ??? Hyperlipidemia ??? Hypertension Past Surgical History: Procedure Laterality Date ??? CARPAL TUNNEL RELEASE Right 07/2020 Family History Problem Relation Age of Onset ??? Heart disease Mother ??? Colon cancer Father Social History Socioeconomic History ??? Marital status: Spouse name: None ??? Number of children: None ??? Years of education: None ??? Highest education level: None Occupational History ??? None Tobacco Use ??? Smoking status: Never Smoker ??? Smokeless tobacco: Never Used Substance and Sexual Activity ??? Alcohol use: None ??? Drug use: None ??? Sexual activity: None Other Topics Concern ??? None Social History Narrative ??? None Social Determinants of Health Financial Resource Strain: ??? Difficulty of Paying Living Expenses: Food Insecurity: ??? Worried About Running Out of Food in the Last Year: ??? Ran Out of Food in the Last Year: Transportation Needs: ??? Lack of Transportation (Medical): ??? Lack of Transportation (Non-Medical): Physical Activity: ??? Days of Exercise per Week: ??? Minutes of Exercise per Session: Stress: ??? Feeling of Stress : Social Connections: ??? Frequency of Communication with Friends and Family: ??? Frequency of Social Gatherings with Friends and Family: ??? Attends Faith Services: ??? Active Member of Clubs or Organizations: ??? Attends Club or Organization Meetings: ??? Marital Status: Intimate Partner Violence: ??? Fear of Current or Ex-Partner: ??? Emotionally Abused: ??? Physically Abused: ??? Sexually Abused: Review of Systems Constitutional: No change in appetite. No recent weight loss. No fevers,chills or sweats. HENT: No trouble swallowing. No tinnitus. Eyes: No visual disturbances. Respiratory: No shortness of breath. No cough or sputum production. No wheezing. Cardiovascular: No chest pain. No palpitations. Gastrointestinal: No abdominal pain. No nausea, vomiting or diarrhea. Genitourinary: No dysuria. No hematuria. Extremities: No claudication. No rest pain. No ulcerations. No infections. Musculoskeletal: No joint pains. No back pain. No myalgias. Neurologic: No dizziness. No syncope. No weakness. Endocrine: No polydipsia, polyphagia or polyuria. Skin: No rashes. No discoloration. Hematologic: No bleeding. No easy bruising. Psychiatric: No anxiety. No behavioral changes. No mood swings. Physical Exam Constitutional: Alert and oriented. Eyes: Extraocular movements full, sclerae anicteric. HENT: Head atraumatic and normocephalic. Neck is supple. No carotid bruits. Chest: Effort normal. Breath sounds normal. Cardiovascular: S1 and S2 are normal. No murmurs, rubs or gallops appreciated. Extremities: Lower extremities are warm well perfused. Bilateral femoral distal pulses palpable. Abdominal: Soft, nontender, no masses. Normal bowel sounds. Musculoskeletal: Normal range of motion. Neurologic: Cranial nerves 2-12 intact. Strength and sensation intact bilaterally. Skin: Warm and dry. No rashes. No discoloration. Hematologic/Lymphatic: No adenopathy, no ecchymoses. Psychiatric: Normal mood and affect. Behavior normal.Judgment normal. Diagnostic Imaging The following diagnostic imaging was reviewed and visualized by myself. Carotid duplex performed 09/16/2020 revealed widely patent right internal carotid artery with no restenosis and a mild left internal carotid stenosis measuring 16-49% in diameter. Assessment/Plan Diagnoses and all orders for this visit: Occlusion and stenosis of bilateral carotid arteries (I65.23) (Primary) Assessment & Plan: Impression: Stable asymptomatic bilateral carotid stenosis. Plan: No surgical intervention needed. Patient follow-up in 1 year for re- evaluation and repeat carotid duplex surveillance. Recommend ongoing risk factor modification including daily statin, anti-platelet and antihypertensive regimen. Hyperlipidemia, unspecified hyperlipidemia type (E78.5) Assessment & Plan: Impression: Stable chronic hyperlipidemia. Plan: Medications reviewed I recommend continuing daily statin regimen as directed by patient's primary care physician. Essential hypertension (I10) Assessment & Plan: Impression: Stable chronic hypertension. Plan: Medications reviewed and recommend continuing daily antihypertensive regimen as directed by patient's primary care physician. Portions of this note was created with [employer] voice recognition software. Forensic Manager variances may be present. Juan Salazar NP Cosigned by Alan Thomas MD at 09/18/2020 10:24 AM CDT documented in this encounter Miscellaneous Notes * Assessment & Plan Note - Juan Salazar NP - 09/17/2020 4:53 PM CDT Associated Problem(s): Hypertension Impression: Stable chronic hypertension. Plan: Medications reviewed and recommend continuing daily antihypertensive regimen as directed by patient's primary care physician. * Assessment & Plan Note - Juan Salazar NP - 09/17/2020 4:52 PM CDT Associated Problem(s): Hyperlipidemia Impression: Stable chronic hyperlipidemia. Plan: Medications reviewed I recommend continuing daily statin regimen as directed by patient's primary care physician. * Assessment & Plan Note - Juan Salazar NP - 09/17/2020 4:50 PM CDT Associated Problem(s): Bilateral carotid artery stenosis Impression: Stable asymptomatic bilateral carotid stenosis. Plan: No surgical intervention needed. Patient follow-up in 1 year for re- evaluation and repeat carotid duplex surveillance. Recommend ongoing risk factor modification including daily statin, anti-platelet and antihypertensive regimen. documented in this encounter Plan of Treatment Not on file documented as of this encounter Visit Diagnoses Diagnosis Occlusion and stenosis of bilateral carotid arteries- Primary Hyperlipidemia, unspecified hyperlipidemia type Essential hypertension Unspecified essential hypertension documented in this encounter Historical Medications * This list may reflect changes made after this encounter. Medication Sig Dispense Quantity Refills Last Filled Start D ate End Date metFORMIN (GLUCOPHAGE) 500 mg tablet 09/15/2020 hydroCHLOROthiazide (HYDRODIURIL) 12.5 mg tablet 09/10/2020 added in this encounter Care Teams Life Assurance Representative Relationship Specialty Start Date End Date John Sparks DO PCP - General Internal Medicine 11/01/18 09/20/22 documented as of this encounter
--- OUTSIDE RECORDS SUMMARY | 2024-06-28 12:53 | XMS_ITS | Encounter Summary ---
Author Organization [facility] Address [address] [place] [address] Care Team Providers Care Child Abuse Worker Name Role Phone John Sparks DO Primary Care Provider [phone] Encounter Details Date Type Department Care Team (Late st Contact Info) Description 09/08/2020 Orders Only [facility] Vascular and Vein Surgery [address] [facility] [address] [place] [address] Alna Thomas MD [address] [facility] [address] [place] [address] Bilateral carotid artery occlusion (Primary Dx) Social History Tobacco Use Types Packs/Day Years Used Date Smoking Tobacco: Never Smokeless Tobacco: Never Sex and Gender Information Value Date Recorded Sex Assigned at Not on file 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
--- OUTSIDE RECORDS SUMMARY | 2024-06-28 12:53 | XMS_ITS | Encounter Summary ---
Author Organization [facility] Healthcare Address [address] [place] [address] Care Team Providers Care Office Clerk Routine Name Role Phone Ajay Haq MD Primary Care Provi martina Encounter Details Date Type Department Care Team (Latest Contact Info) Description 08/08/2017 1:15 PM PATTERN ATTENDANT Hospital Encounter [facility] Alan Thomas MD [address] [facility] [address] [place] [address] Occlusion and stenosis of bilateral carotid arteries Social History Tobacco Use Types Packs/Day Years Used Date Smoking Tobacco: Never Sex and Gender Information Value Date Recorded Sex Assigned at Not on file Legal Sex Male 11:52 PM PATTERN ATTENDANT Gender Identity Not on file Sexual Orientation Not on file documented as of this encounter Plan of Treatment Not on file documented as of this encounter Procedures Procedure Name Priority Date/Time Associated Diagnosis Comments US CAROTIDS DUPLEX BILATERAL Routine 08/08/2017 12:00 AM PATTERN ATTENDANT documented in this encounter Results * US Carotids Duplex Bilateral (08/08/2017 12:00 AM PATTERN ATTENDANT) Anatomical Region Laterality Modality Vascular Bilateral Ultrasound 08/08/2017 Impressions 08/10/2017 7:12 AM PATTERN ATTENDANT ??No significant recurrent stenosis right internal carotid artery status post endarterectomy. ??No significant stenosis left internal carotid artery. [employer] Job: [id number] Dictated By: Alan Thomas MD Dictated For: Alan Thomas MD [EOD] Narrative 08/10/2017 7:12 AM PATTERN ATTENDANT DATE OF SERVICE: 08/08/2017 REASON FOR STUDY: ??Carotid stenosis. Vertebral artery flow is antegrade bilaterally. ??Minimal plaque both internal carotid arteries less than 50% diameter stenoses. ??No significant increase in peak systolic velocity in either internal carotid artery. ??Velocity on the right is 43 cm/s, on the left is 83 cm/s. Procedure Note Provider, MD Evelyn - 11/11/2020 DATE OF SERVICE: 08/08/2017 REASON FOR STUDY: Carotid stenosis. Vertebral artery flow is antegrade bilaterally. Minimal plaque bothinternal carotid arteries less than 50% diameter stenoses. No significantincrease in peak systolic velocity in either internal carotid artery.Velocity on the right is 43 cm/s, on the left is 83 cm/s. IMPRESSION: No significant recurrent stenosis right internal carotidartery status post endarterectomy. No significant stenosis left internalcarotid artery. NTS Job: [id number] Dictated By: Alan Thomas MD Dictated For: Alan Thomas MD [EOD] us Alan Thomas MD IMG US PROCEDURES Final Res ult documented in this encounter Visit Diagnoses Diagnosis Occlusion and stenosis of bilateral carotid arteries documented in this encounter Care Teams Office Clerk Routine Relationship Specialty Start Date End Date Ajay Haq MD PCP - General 08/22/06 08/29/18 documented as of this encounter
--- OUTSIDE RECORDS SUMMARY | 2024-06-28 12:53 | XMS_ITS | Encounter Summary ---
Author Organization [facility] Medical [facility] Address [address] [place] [address] Care Team Providers Care Pharmacy Service Associate Name Role Phone John Sparks DO Primary Care Provider Reason for Visit * Reason Comments Follow-up 1yr carotid * Consultation (Routine) - Closed Specialty Diagnoses / Procedures Referred By Evelia t Referred To Contact Vascular Surgery Diagnoses Bilateral carotid artery stenosis John Sparks DO Phone: tel: fax: Alan Thomas MD [address] [place] [address] [address] [place] [address] Phone: tel: fax: Referral ID Status Reason Start Date Expiration Date V isits Requested Visits Authorized [id number] Closed Specialty Services Required 08/30/2019 08/29/2020 6 6 Encounter Details Date Type Department Care Team (Late st Contact Info) Description 09/07/2019 9:00 AM CDT Office Visit [facility] Medical [facility] Vascular and Vein Surgery [address] [place] [address] Alan Thomas MD [address] [place] [address] [address] [place] [address] Occlusion and stenosis of bilateral carotid arteries (Primary Dx); Bilateral carotid artery stenosis; Hyperlipidemia, unspecified hyperlipidemia type; Essential hypertension Social History Tobacco Use Types Packs/Day Years Used Date Smoking Tobacco: Never Smokeless Tobacco: Never Sex and Gender Information Value Date Recorded Sex Assigned at Not on file 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 No / Unsure 09/07/2019 8:51 AM CDT documented as of this encounter Last Filed Vital Signs Vital Sign Reading Time Taken Comments Blood Pressure 179/88 09/07/2019 9:03 AM CDT Pulse 67 09/07/2019 9:03 AM CDT Temperature 36.3 ??C (97.3 ??F) 09/07/2019 9:03 AM CD T Respiratory Rate - - Oxygen Saturation - - Inhaled Oxygen Concentration - - Weight 90.7 kg (200 lb) 09/07/2019 9:03 AM CDT Height 179.1 cm (5' 10.5 ) 09/07/2019 9:03 AM CD T Body Mass Index 28.29 09/07/2019 9:03 AM CDT documented in this encounter Progress Notes * Alan Thomas MD - 09/07/2019 9:00 AM CDT Subjective/Objective Patient ID: Naeem Pitt is a 84 y.o. male. Chief Complaint Carotid stenosis. Chief Complaint Patient presents with ??? Follow-up 1yr carotid HPI The patient is an 84-year-old male with history of carotid artery occlusive disease. He is status post right carotid enterectomy in 2013. He has had no lateralizing numbness or weakness and no amaurosis fugax. Current Outpatient Medications: ??? atenolol (TENORMIN) 50 [...] daily, Disp: , Rfl: No Known Allergies History reviewed. No pertinent past medical history. History reviewed. No pertinent surgical history. History reviewed. No pertinent family history. Social History Socioeconomic History ??? Marital status: Spouse name: None ??? Number of children: None ??? Years of education: None ??? Highest education level: None Occupational History ??? None Social Needs ??? Financial resource strain: None ??? Food insecurity Worry: None Inability: None ??? Transportation needs Medical: None Non-medical: None Tobacco Use ??? Smoking status: Never Smoker ??? Smokeless tobacco: Never Used Substance and Sexual Activity ??? Alcohol use: None ??? Drug use: None ??? Sexual activity: None Lifestyle ??? Physical activity Days per week: None Minutes per session: None ??? Stress: None Relationships ??? Social connections Talks on phone: None Gets together: None Attends baptist service: None Active member of club or organization: None Attends meetings of clubs or organizations: None Relationship status: None ??? Intimate partner violence Fear of current or ex partner: None Emotionally abused: None Physically abused: None Forced sexual activity: None Other Topics Concern ??? None Social History Narrative ??? None ROS Constitutional: No change in appetite. No [...] The patient has no recurrence stenosis in the right internal carotid artery status post endarterectomy. He has a minimal stenosis in the left internal carotid artery measuring less than 50% in diameter ASSESSMENT AND PLAN Assessment/Plan Diagnoses and all orders for this visit: Occlusion and stenosis of bilateral carotid arteries (Primary) Bilateral carotid artery stenosis - Ambulatory referral to Vascular Surgery Hyperlipidemia, unspecified hyperlipidemia type Essential hypertension impression 1. Carotid stenosis. The patient has done well following a right carotid enterectomy. Hehas no recurrence stenosis. No intervention indicated this time. Plan: Follow-up in 1 year Impression 2. Hypertension. Patient's hypertension is currently under good control Plan: Hypertensive management as per primary care provider Impression 3. Hyperlipidemia. The patient is currently on a statin and tolerating it well Plan: Hyperlipidemia management as per primary care provider documented in this encounter Plan of Treatment Not on file documented as of this encounter Visit Diagnoses Diagnosis Occlusion and stenosis of bilateral carotid arteries- Primary Bilateral carotid artery stenosis Occlusion and stenosis of carotid artery without mention of cerebral infarction Hyperlipidemia, unspecified hyperlipidemia type Essential hypertension Unspecified essential hypertension documented in this encounter Discontinued Medications Medication Sig Discontinue Reason Start Date End Da te metFORMIN (GLUCOPHAGE) 500 mg tablet Therapy completed 9 09/07/2019 documented as of this encounter Historical Medications * This list may reflect changes made after this encounter. Medication Sig Dispense Quantity Refills Last Filled Start D ate End Date OneTouch Ultra Blue Test Strip strip 07/17/2019 added in this encounter Orders Outpatient Referral Count Last Ordered Date Fir st Ordered Date AMB REFERRAL TO VASCULAR SURGERY 1 09/07/19 20 documented in this encounter Care Teams Pharmacy Service Associate Relationship Specialty Start Date End Date John Sparks DO PCP - General Internal Medicine 11/01/18 09/20/22 documented as of this encounter
--- OUTSIDE RECORDS SUMMARY | 2024-06-28 12:53 | XMS_ITS | Encounter Summary ---
Author Organization [facility] Address [address] [place] [address] Phone Care Team Providers Care Garage Door Service Technician Name Role Phone John Sparks DO Primary Care Provider [phone] Reason for Visit * Dermatology (Routine) - Closed Specialty Diagnoses / Procedures Referred By Contac t Referred To Contact Dermatology Diagnoses bcc r scalp- infiltrative (3u) (1),pv Procedures MOHS PROCEDURE < 3 UNITS Paxton Fernando MD [address] [place] [address] Phone: tel: fax: Genna Amaya MD [address] [place] [address] [address] [place] [address] Phone: tel: fax: Referral ID Status Reason Start Date Expiration Date Visits Re quested Visits Authorized [id number] Closed 05/18/2019 06/26/2019 3 3 Encounter Details Date Type Department Care Team (Latest Contact Info) Description 05/30/2019 8:30 AM SUPERVISOR DENTURE DEPARTMENT Procedure visit [facility] Dermatology [address] [place] [address] [address] [place] [address] Genna Amaya MD [address] [place] [address] [address] [place] [address] BCC (basal cell carcinoma), scalp/neck (Primary Dx) Social History Tobacco Use Types Packs/Day Years Used Date Smoking Tobacco: Never Smokeless Tobacco: Never Sex and Gender Information Value Date Recorded Sex Assigned at Not on file Legal Sex Male 11:52 PM SUPERVISOR DENTURE DEPARTMENT Gender Identity Not on file Sexual Orientation Not on file documented as of this encounter Last Filed Vital Signs Vital Sign Reading Time Taken Comments Blood Pressure 159/81 05/30/2019 9:10 AM SUPERVISOR DENTURE DEPARTMENT Pulse 62 05/30/2019 9:10 AM SUPERVISOR DENTURE DEPARTMENT Temperature - - Respiratory Rate - - Oxygen Saturation 96% 05/30/2019 9:10 AM SUPERVISOR DENTURE DEPARTMENT Inhaled Oxygen Concentration - - Weight - - Height - - Body Mass Index - - documented in this encounter Progress Notes * Genevieve Edouard MD - 05/30/2019 8:30 AM CST [facility] [address] [place] [address] SKIN CANCER CONSULT NOTE NAME: Naeem Pitt : 1935 DATE: 05/30/19 CC: BCC R scalp HPI: Naeem Pitt presents today for evaluation of basal cell carcinoma on the R scalp above ear. Duration: At least 1 year. Symptoms: Scabbing, non-healing, tender to touch Prior treatment: None. Personal history of skin cancer: Yes, NMSC Family history of skin cancer: None ROS: Constitutional: No fever, no chills, no unintended weight loss Allergies/Medications/PMH: Reviewed in EMR. PHYSICAL EXAM: Vitals Signs: Vitals BP 159/81 Pulse 62 SpO2 96% GENERAL: Appears well. No acute distress. ORIENTATION: Alert and oriented x3. MOOD/AFFECT: Normal affect. GONSALEZ SKIN TYPE: I FACE: No abnormalities noted. EARS: No abnormalities noted. SCALP/HAIR: 1.5x1.1cm pink healed macule with central crusted papule on R scalp above ear EYES/EYELIDS: No scleral icterus. No abnormalities noted of conjunctiva or eyelids. LIPS/ORAL MUCOSA: No abnormalities noted. NECK: No abnormalities noted. EXTREMITIES (RUE): No abnormalities noted. EXTREMITIES (LUE): No abnormalities noted. DIGITS/NAILS: No cyanosis, clubbing, or nail abnormality. --Lesion identified and verified with patient's assistance using a handheld mirror and/or referringprovider photos. Patient agrees with location. ASSESSMENT AND PLAN: 1. basal cell carcinoma, infiltrative of the R scalp above ear, biopsy proven. - Treatment options discussed included: Mohs micrographic surgery, standard excision - Will plan for Mohs micrographic surgery - Indications for MMS include: location, histology, ill-defined - Likely repair options reviewed including: complex linear repair, possible flap, second intention/granulation, possible skin graft - Risks and benefits were discussed including, but not limited to, scarring, bleeding, infection, pain, swelling, bruising, dyspigmentation, asymmetry, deformity, recurrence, need for further treatment, allergy, motor and sensory nerve injury. - The patient and/or family members demonstrated understanding of the points discussed - Time was provided for patient questions - Special considerations: None 2. Prophylaxis for MMS. - None 3. Medication restrictions for MMS. - Pt stopped ASA and vit E 2 weeks ago Photos obtained, pre-operative instructions provided, Mohs micrographic surgery booklet provided. Patient here for surgery. Genevieve Edouard MD Cosigned by Genna Amaya MD at 05/30/2019 3:29 PM SUPERVISOR DENTURE DEPARTMENT RVISOR DENTURE DEPARTMENT RVISOR DENTURE DEPARTMENT Associated attestation - Genna Amaya MD - 05/30/2019 3:29 PM SUPERVISOR DENTURE DEPARTMENT I have seen and examined the patient. I agree with the findings and plan of care as documented in the resident/fellow's note. * Simi Bullock MD - 05/30/2019 8:30 AM CST [facility] [address] [place] [address] OPERATIVE REPORT NAME: Naeem Pitt : 1935 DATE: 05/30/19 Operation: MOHS MICROGRAPHIC SURGERY Pre-operative diagnosis: basal cell carcinoma Post-operative diagnosis: Same Location: right scalp above ear Pre-operative size: 1.5 x 1.1 cm Post-operative size: 3.2 x 3.0 cm Surgeon: Genna Amaya MD Production Operations Manager Surgeon: Simi Bullock MD, Genevieve Edouard MD Medical Staff: Camilla Baker, Ana Luisa Shirley Anesthesia: 1% lidocaine with epinephrine, 1:100,000 Indications: Ill-defined margins, involvement of sensitive cosmetic and functional structures, size, histology Preparation: The patient was brought into [...] Stage 1 included multiple microscopic sections of 2 tissue specimens Stage 2 included multiple microscopic sections of 1 tissue specimens Stage 3 included multiple microscopic sections of 1 tissue specimens At this point, no further tumor cells were identified. Tumor eradication was complete after a totalof 3 stage of surgery in which multiple microscopic sections of 4 tissue specimens were examined. Wound management: Repaired by Genna Amaya MD and radiology assistant (see operative report). The patient was discharged in stable condition. Cosigned by Genna Amaya MD at 05/30/2019 3:28 PM SUPERVISOR DENTURE DEPARTMENT RVISOR DENTURE DEPARTMENT RVISOR DENTURE DEPARTMENT Associated attestation - Genna Amaya MD - 05/30/2019 3:28 PM SUPERVISOR DENTURE DEPARTMENT Erendira Martinez MD performed or directly supervised my fellow in all aspects of the Mohs surgery procedure including excision of the tumor, mapping/inking of tissue, and interpretation of histopathological specimen(s). * Simi Bullock MD - 05/30/2019 8:30 AM CST NAME: Naeem Pitt : 1935 DATE: 05/30/19 Surgeon: Genna Amaya MD Production Operations Manager Surgeon: Simi Bullock MD, Genevieve Edouard MD Medical Staff: Karen Villa, Camilla Aguirre, Gaby Morales, Ana Luisa Roman INDICATIONS: This patient was left with a 3.2 x 3.0 cm defect involving the right scalp above ear area followingMohs surgery for a basal cell carcinoma. Various closure modalities were discussed with the patientand it was decided that a rotation flap with full thickness skin graft repair would best preserve normal anatomical and functional relationships. After a discussion of the risks of bleeding, scarring, infection, pain and wound dehiscence, informed consent was obtained and the patient underwent the procedure as follows. PROCEDURE: The patient was taken to the operative suite and placed on a surgery table. The area was anesthetized with 1% lidocaine with epinephrine, 1:100,000. The area was washed with clorhexidine and draped with sterile towels. A rotation flap was designed with incisions. The flap was undermined and hemostasis was obtained with spot electrodesiccation. The flap was advanced into the primary defect and closed using 3-0 Monocryl suture. The epidermis was carefully approximated throughout the length of thewound with 4-0 Prolene sutures. A portion of the primary defect could not be closed with advancement, therefore, a full thickness Burow's graft was used to close the defect.The graft was de-fatted and trimmed to fit the remaining part of the primary defect. It was sutured into place using 5-0 Fast absorbing gut peripheral tacking sutures. Final cutaneous approximation of the graft was achieved with a running 5-0 Fast absorbing gut suture. Final dimensions measured 4.5 x 3.5 cm for the advancement flap and 1.5 x 1.5 cm for the graft portion. A sterile pressure dressing was applied and written instructions with handout were given. The patient was discharged from the Surgery Unit ambulatory and in stable condition. FINAL DIAGNOSIS: basal cell carcinoma of the right scalp above ear status post Mohs surgery FINAL PROCEDURE: Rotation flap and full thickness skin graft COMPLICATIONS: None POST-OP PRESCRIPTIONS: Tylenol prn for pain. COMMENT: The patient will return in 10 days for suture removal/wound check. Cosigned by Genna Amaya MD at 05/30/2019 3:28 PM SUPERVISOR DENTURE DEPARTMENT RVISOR DENTURE DEPARTMENT RVISOR DENTURE DEPARTMENT Associated attestation - Genna Amaya MD - 05/30/2019 3:28 PM SUPERVISOR DENTURE DEPARTMENT I was present for the goff portion of the procedure and remained immediately available for the remainder of the procedure. documented in this encounter Plan of Treatment Not on file documented as of this encounter Visit Diagnoses Diagnosis BCC (basal cell carcinoma), scalp/neck- Primary Other malignant neoplasm of scalp and skin of neck documented in this encounter Historical Medications * This list may reflect changes made after this encounter. phytonadione, vit K1, (PHYTONADIONE, VITAMIN K1,) 100 mcg tablet Take by mouth daily cholecalciferol (VITAMIN D-3) 1,000 unit Take 1 tablet/capsule (1,000 Units total) by mouth daily vitamin E 400 unit capsule 0.25 capsules (100 Units total) daily triamcinolone (KENALOG) 0.1 % cream 03/31/2019 omeprazole (PriLOSEC) 20 mg capsule 04/14/2019 losartan (COZAAR) 100 mg tablet 03/27/2019 finasteride (PROSCAR) 5 mg tablet 04/29/2019 atenolol (TENORMIN) 50 mg tablet 05/02/2019 atorvastatin (LIPITOR) 20 mg tablet 05/01/2019 metFORMIN (GLUCOPHAGE) 500 mg tablet 05/02/2019 09/07/2019 added in this encounter Care Teams Garage Door Service Technician Relationship Specialty Start Date End Date John Sparks DO PCP - General Internal Medicine 11/01/18 09/20/22 documented as of this encounter
--- OUTSIDE RECORDS SUMMARY | 2024-06-28 12:53 | XMS_ITS | Encounter Summary ---
Author Organization [facility] Address [address] [place] [address] Care Team Providers Care Back Roller Name Role Phone John Sparks DO Primary Care Provider [phone] Encounter Details Date Type Department Care Team (Late st Contact Info) Description 08/27/[address] 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
--- OUTSIDE RECORDS SUMMARY | 2024-06-28 12:53 | XMS_ITS | Encounter Summary ---
Author Organization [facility] Group Address [address] [place] [address] Care Team Providers Care Ordained Minister Name Role Phone John Sparks DO Primary Care Provider [phone] Encounter Details Date Type Department Care Team (Late st Contact Info) Description 01/07/2020 Orders Only [facility] Vascular and Vein Surgery [address] [place] [address] Alan Thomas MD [address] [place] [address] Social History Tobacco Use Types Packs/Day Years Used Date Smoking Tobacco: Never Smokeless Tobacco: Never Sex and Gender Information Value Date Recorded Sex Assigned at Not on file Legal Sex Male 11:52 PM STAFF RN Gender Identity Not on file Sexual Orientation Not on file documented as of this encounter Plan of Treatment Not on file documented as of this encounter Visit Diagnoses Not on filedocumented in this encounter Care Teams Ordained Minister Relationship Specialty Start Date End Date John Sparks DO PCP - General Internal Medicine 11/01/18 09/20/22 documented as of this encounter
--- OUTSIDE RECORDS SUMMARY | 2024-06-28 12:53 | XMS_ITS | Encounter Summary ---
Author Organization [facility] Address [address] [place] [address] Care Team Providers Care Car Painter Name Role Phone John Sparks DO Primary Care Provider [phone] Encounter Details Date Type Department Care Team (Late st Contact Info) Description 08/27/2019 Orders Only [facility] Vascular and Vein Surgery [address] [place] [address] Alan Thomas MD [address] 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
--- OUTSIDE RECORDS SUMMARY | 2024-06-28 12:53 | XMS_ITS | Encounter Summary ---
Author Organization [facility] Care Team Providers Care Supervisor Name Role Phone John Sparks DO Primary Care Provider [phone] Encounter Details Date Type Department Care Team (Latest Contact Info) Description 09/07/2019 Travel Social History Tobacco Use Types Packs/Day Years Used Date Smoking Tobacco: Never Smokeless Tobacco: Never Sex and Gender Information Value Date Recorded Sex Assigned at Not on file Legal Sex Male 11:52 PM FOUNDATION DIGGER Gender Identity Not on file Sexual Orientation Not on file COVID-19 Exposure Response Date Recorded In the last month, have you been in contact with someone who was confirmed or suspected to have Coronavirus / COVID-19? No / Unsure 09/07/2019 8:51 AM CDT documented as of this encounter Plan of Treatment Not on file documented as of this encounter Visit Diagnoses Not on filedocumented in this encounter Care Teams Supervisor Relationship Specialty Start Date End Date John Sparks DO PCP - General Internal Medicine 11/01/18 09/20/22 documented as of this encounter
--- OUTSIDE RECORDS SUMMARY | 2024-06-28 12:53 | XMS_ITS | Encounter Summary ---
Author Organization [facility] Healthcare Address [address] [place] [address] Care Team Providers Care Rn First Assist Name Role Phone Ajay Haq MD Primary Care Provi maritna Encounter Details Date Type Department Care Team (Latest Contact Info) Description 07/05/2016 10:43 AM CUSTOMER SERVICE SECURITY OFFICER Hospital Encounter [facility] OP Alan Thomas MD [address] [facility] [address] [place] [address] Occlusion and stenosis of bilateral carotid arteries Social History Tobacco Use Types Packs/Day Years Used Date Smoking Tobacco: Never Sex and Gender Information Value Date Recorded Sex Assigned at Not on file Legal Sex Male 11:52 PM CUSTOMER SERVICE SECURITY OFFICER Gender Identity Not on file Sexual Orientation Not on file documented as of this encounter Plan of Treatment Not on file documented as of this encounter Procedures Procedure Name Priority Date/Time Associated Diagnosis Comments US CAROTIDS DUPLEX BILATERAL Routine 07/05/2016 12:00 AM CUSTOMER SERVICE SECURITY OFFICER documented in this encounter Results * US Carotids Duplex Bilateral (07/05/2016 12:00 AM CUSTOMER SERVICE SECURITY OFFICER) Anatomical Region Laterality Modality Vascular Bilateral Ultrasound 07/05/2016 Impressions 07/05/2016 2:45 PM CUSTOMER SERVICE SECURITY OFFICER ?? 1. ??No significant recurrent stenosis, right internal carotid artery, status post endarterectomy. ?? 2. ??No significant stenosis, left internal carotid artery. NTS Job: [id number] Dictated By: Alan Thomas MD Dictated For: Alan Thomas MD [EOD] Narrative 07/05/2016 2:45 PM CUSTOMER SERVICE SECURITY OFFICER DATE OF SERVICE: 07/05/2016 REASON FOR STUDY: ??Carotid stenosis. Vertebral artery flow is antegrade bilaterally. ??There is minimal plaque in both internal carotid arteries of less than 50% diameter stenoses. ??There is no significant increase in peak systolic velocity in either internal carotid artery. ??Velocity on the right is 79 cm/sec, on the left is 99 cm/sec. Procedure Note Provider, MD Evelyn - 11/11/2020 DATE OF SERVICE: 07/05/2016 REASON FOR STUDY: Carotid stenosis. Vertebral artery flow is antegrade bilaterally. There is minimal plaquein both internal carotid arteries of less than 50% diameter stenoses.There is no significant increase in peak systolic velocity in eitherinternal carotid artery. Velocity on the right is 79 cm/sec, on the leftis 99 cm/sec. IMPRESSION: 1. No significant recurrent stenosis, right internal carotid artery,status post endarterectomy. 2. No significant stenosis, left internal carotid artery. NTS Job: [id number] Dictated By: Alan Thomas MD Dictated For: Alan Thomas MD [EOD] us Alan Thomas MD IMG US PROCEDURES Final Res ult documented in this encounter Visit Diagnoses Diagnosis Occlusion and stenosis of bilateral carotid arteries documented in this encounter Care Teams Rn First Assist Relationship Specialty Start Date End Date Ajay Haq MD PCP - General 08/22/06 08/29/18 documented as of this encounter
--- OUTSIDE RECORDS SUMMARY | 2024-06-28 12:53 | XMS_ITS | Encounter Summary ---
Author Organization [facility] Healthcare Address [address] [place] [address] Care Team Providers Care Splicing Machine Operator Automatic Name Role Phone Ajay Haq MD Primary Care Provi martina Encounter Details Date Type Department Care Team (Latest Contact Info) Description 10/12/2012 9:22 AM CDT Hospital Encounter [facility] OP Shivam Antonio MD [address] [address] Occlusion and stenosis of carotid artery Social History Tobacco Use Types Packs/Day Years Used Date Smoking Tobacco: Never Assessed Sex and Gender Information Value Date Recorded Sex Assigned at Not on file Legal Sex Male 11:52 PM SUPPLIER QUALITY Gender Identity Not on file Sexual Orientation Not on file documented as of this encounter Plan of Treatment Not on file documented as of this encounter Procedures Procedure Name Priority Date/Time Associated Diagnosis Comments US CAROTIDS DUPLEX BILATERAL Routine 10/12/2012 9:33 AM CDT documented in this encounter Results * US Carotids Duplex Bilateral (10/12/2012 9:33 AM CDT) Anatomical Region Laterality Modality Vascular Bilateral Ultrasound 10/12/2012 9:33 AM CDT Impressions 10/13/2012 1:05 PM CDT 1. Increase in stenosis of the right internal carotid artery with ??subcritical levels now, I would favor approximately 75%. 2. Mild stenosis of the left internal carotid artery with less than 50% ??stenosis. SS/MP TD: ??10/13/2012 04:54:45 Job #: ??[id number] Shivam Antonio MD [EOD] Narrative 10/13/2012 1:05 PM CDT DATE: ??10/12/2012 TAPE NUMBER: REASON FOR EXAM: Study done on 10/12/2012. INDICATION: ??Follow-up known carotid stenosis with multiple risk factors. This study shows radial artery pulses that are equal bilaterally. Vertebral artery flow is forward and normal velocity bilaterally. Examination of both carotid systems: ??There is laminar and normal velocity flow in the common carotid artery bilaterally. ??On the right side, the flow velocity becomes disturbed with the velocity reaching the maximum of 350 cm/second in systole and 105 cm/second in diastole. The distal internal carotid flow velocity is 140 cm/second and the external carotid flow velocity is 97 cm/second. On the left side, the flow velocity is fairly normal throughout the common external and internal carotid arteries with a maximum velocity of 118 cm/second in the distal internal carotid artery. Imaging reveals some plaque formation in both carotid bulbs, but on the right side, it appears to be in the subcritical level. ??I would favor at least 75%. On the left side, the degree of stenosis appears to be less than 50%. Compared to previous study, there has been advancement in the stenosis on the right side with velocity being previously most likely in the 60-70% range and now the degree of stenosis appears to be 75%. Procedure Note Provider, MD Evelyn - 11/11/2020 DATE: 10/12/2012 TAPE NUMBER: REASON FOR EXAM: Study done on 10/12/2012. INDICATION: Follow-up known carotid stenosis with multiple riskfactors. This study shows radial artery pulses that are equal bilaterally. Vertebral artery flow is forward and normal velocity bilaterally. Examination of both carotid systems: There is laminar and normalvelocity flow in the common carotid artery bilaterally. On the right side, theflow velocity becomes disturbed with the velocity reaching the maximum of 350 cm/second in systole and 105 cm/second in diastole. The distal internal carotid flow velocity is 140 cm/second and the external carotid flowvelocity is 97 cm/second. On the left side, the flow velocity is fairly normal throughout thecommon external and internal carotid arteries with a maximum velocity of 118 cm/second in the distal internal carotid artery. Imaging reveals some plaque formation in both carotid bulbs, but on theright side, it appears to be in the subcritical level. I would favor at least75%. On the left side, the degree of stenosis appears to be less than 50%. Compared to previous study, there has been advancement in the stenosis onthe right side with velocity being previously most likely in the 60-70% rangeand now the degree of stenosis appears to be 75%. IMPRESSION: 1. Increase in stenosis of the right internal carotid artery with subcritical levels now, I would favor approximately 75%. 2. Mild stenosis of the left internal carotid artery with less than 50% stenosis. SS/MP TD: 10/13/2012 04:54:45 /[id number] Shivam Antonio MD [EOD] us Shivam Antonio MD IMG US PROCEDURES Final R esult documented in this encounter Visit Diagnoses Diagnosis Occlusion and stenosis of carotid artery documented in this encounter Care Teams Splicing Machine Operator Automatic Relationship Specialty Start Date End Date Ajay Haq MD PCP - General 08/22/06 08/29/18 documented as of this encounter
--- OUTSIDE RECORDS SUMMARY | 2024-06-28 12:53 | XMS_ITS | Encounter Summary ---
Author Organization [facility] Address [address] [place] [address] Phone Care Team Providers Care Airfield Operations Specialist Name Role Phone John Sparks Primary Care Provider [phone] Reason for Visit * Reason Comments Suture / Staple Removal * Dermatology (Routine) - Closed Specialty Diagnoses / Procedures Referred By Contac t Referred To Contact Dermatology Diagnoses bcc r scalp- infiltrative (3u) (1),pv Procedures MOHS PROCEDURE < 3 UNITS Paxton Fernando MD [address] [place] [address] Phone: tel: fax: Genna Amaya MD [address] [place] [address] [address] [place] [address] Phone: tel: fax: Referral ID Status Reason Start Date Expiration Date Visits Re quested Visits Authorized [id number] Closed 05/18/2019 06/26/2019 3 3 Encounter Details Date Type Department Care Team (Latest Contact Info) Description 06/13/2019 3:00 PM BILINGUAL EXECUTIVE ASSISTANT Procedure visit [facility] Dermatology [address] [place] [address] [address] [place] [id number] BCC (basal cell carcinoma), right scalp above the ear (Primary Dx) Social History Tobacco Use Types Packs/Day Years Used Date Smoking Tobacco: Never Smokeless Tobacco: Never Sex and Gender Information Value Date Recorded Sex Assigned at Not on file Legal Sex Male 11:52 PM BILINGUAL EXECUTIVE ASSISTANT Gender Identity Not on file Sexual Orientation Not on file documented as of this encounter Progress Notes * Koch, Latonya M., RMA - 06/13/2019 3:00 PM CST S: Patient returns 2 weeks following Mohs surgery for BCC located on the right scalp above the ear with combined rotation flap and Willie's graft repair. Patient has no complaints. O: Suture line is clean, dry and intact with excellent epidermal approximation. There is good graft take, appropriate erythema, edema and minimal bruising. There is no sign of infection, hematoma or dehiscence. A/P: 2 weeks s/p Mohs for BCC right scalp. Sutures easily removed. Keep graft area well moisturized with Vaseline for another week or so. Photos taken. Healing well. Return PRN with concerns. Follow up with Dr. Fernando for routine skin checks twice yearly. Patient reminded to protect skin from the sun. Dr. Amaya examined the patient and agreed with the findings. Cosigned by Genna Amaya MD at 06/14/2019 1:41 PM BILINGUAL EXECUTIVE ASSISTANT NGUAL EXECUTIVE ASSISTANT NGUAL EXECUTIVE ASSISTANT documented in this encounter Plan of Treatment Not on file documented as of this encounter Visit Diagnoses Diagnosis BCC (basal cell carcinoma), right scalp above the ear- Primary Other malignant neoplasm of scalp and skin of neck documented in this encounter Care Teams Airfield Operations Specialist Relationship Specialty Start Date End Date John Sparks DO PCP - General Internal Medicine 11/01/18 09/20/22 documented as of this encounter
--- OUTSIDE RECORDS SUMMARY | 2024-06-28 12:53 | XMS_ITS | Encounter Summary ---
Author Organization [facility] Healthcare Address [address] [place] [address] Care Team Providers Care Water Resource Agent Name Role Phone John Sparks DO Primary Care Provider [phone] Encounter Details Date Type Department Care Team (Late st Contact Info) Description 09/07/2019 8:23 AM CDT Hospital Encounter [facility] Alan Thomas MD [address] [place] [facility] [place] [address] Social History Tobacco Use Types Packs/Day Years Used Date Smoking Tobacco: Never Smokeless Tobacco: Never Sex and Gender Information Value Date Recorded Sex Assigned at Not on file 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 Gender Identity Not on file Sexual Orientation Not on file documented as of this encounter Medications at Time of Discharge atenolol (TENORMIN) 50 mg tablet 05/02/2019 atorvastatin (LIPITOR) 20 mg tablet 05/01/2019 cholecalciferol (VITAMIN D-3) 1,000 unit Take 1 tablet/capsule (1,000 Units total) by mouth daily finasteride (PROSCAR) 5 mg tablet 04/29/2019 losartan (COZAAR) 100 mg tablet 03/27/2019 omeprazole (PriLOSEC) 20 mg capsule 04/14/2019 OneTouch [...] Associated Diagnosis Comments US CAROTIDS DUPLEX BILATERAL 09/07/2019 12:00 AM CDT documented in this encounter Results * US Carotids Duplex Bilateral (09/07/2019 12:00 AM CDT) Anatomical Region Laterality Modality Vascular Bilateral Ultrasound 09/07/2019 10:3 3 AM CDT Narrative 09/07/2019 11:39 AM CDT ? Patient Name: STEPHANIE PITT ? MR#: [id number] ?? [id number] ? Status: REG CLI ? D.O.B: 1935 Age: ??84 ?Sex: Male ? ADM/SER Dt: 09/07/19 ?Disch Dt: ? LOC: H.MCU.MB1 ? Ordering Phy: Moosa,Alan H MD ? Order #[id number] ? Carotid Ultrasound Bilateral ?? Alan H Moosa MD ? Signed ?? DATE OF SERVICE: ?? 09/07/2019 ? REASON FOR STUDY: ??Bole Carotid stenosis. ? Vertebral artery flow is antegrade bilaterally. ??There is minimal plaque in both internal and carotid arteries of less than 50% diameter stenoses. ??There is no significant increase in peak systolic velocity in either internal or carotid artery. ??Velocity on the right is 46 cm/s, on the left is 97 cm/s. ? IMPRESSION: ??No significant recurrent stenosis right internal carotid artery status post endarterectomy. ??No significant stenosis left internal carotid artery. ? NTS ? Job: [id number] ? Dictated By: Alan Thomas MD ?? Dictated For: Alan Thomas MD ? <Electronically signed by Alan Thomas MD> ? 09/07/19 1251 ?? Resulting Agency Comment O Procedure Note Alan Thomas MD - 09/07/2019 Patient Name: STEPHANIE PITT #: [id number] Status: REG CLI D.O.B: 1935 Age: 84Sex: Male ADM/SER Dt: 09/07/19 Disch Dt:LOC: H.MCU.MB1 Ordering Phy: Alan Thomas MD Order #[id number] Carotid Ultrasound Bilateral Alan Thomas MD Signed DATE OF SERVICE: 09/07/2019 REASON FOR STUDY: Bole Carotid stenosis. Vertebral artery flow is antegrade bilaterally. There is minimal plaquein both internal and carotid arteries of less than 50% diameter stenoses. There is nosignificant increase in peak systolic velocity in either internal or carotid artery. Velocity on theright is 46 cm/s, on the left is 97 cm/s. IMPRESSION: No significant recurrent stenosis right internal carotidartery status post endarterectomy. No significant stenosis left internal carotid artery. NTS Job: [id number] Dictated By: Alan Thomas MD Dictated For: Alan Thomas MD <Electronically signed by Alan Thomas MD> 09/07/19 1251 us [facility] PROCED[facility] Final Res ult documented in this encounter Visit Diagnoses Not on filedocumented in this encounter Care Teams Water Resource Agent Relationship Specialty Start Date End Date John Sparks DO PCP - General Internal Medicine 11/01/18 09/20/22 documented as of this encounter
--- OUTSIDE RECORDS SUMMARY | 2024-06-28 12:56 | XMS_ITS | Continuity of Care Document ---
Author Organization [facility] Address [address] [place] [address] Phone Care Team Providers Care Licensed Final Expense Agents Name Role Phone Renu Kaiser Unavailable Unavailable Procedures Procedure Date Office/outpatient Visit, Est Dilated Retinal Exam W Interpretation Nd Eye Exam & Treatment Dilated Retinal Exam W Interpretation Nd Eye Exam, New Patient Advance Directives Directive Yes / No Effective Date File Name No Information Encounters Encounter Description Practice Location Reason(s) For Visit Diagnoses Date Provider Providers Copied on Encounter Office/outpat ient Visit, Est [facility], [address] [place] [address] [address], [place], [place], [id number], tel:[phone] [facility] No Information Aug- 0-201 0 Awilda Carlosn. [address] , [address], [place], [place], [facility], . tel:[phone] [facility], [address] [place] [address] [address], [place], [place], [id number], [place] tel:[phone] [facility] No Information 1-200 9 Awilda Carlosn. [address], [place], [place], [facility], . tel:[phone] [facility], [address] [place] [address] [address], [place], [place], [id number], tel:[phone] [facility] No Information 0 8-200 8 Kaiser Renu. [address] , [address], [place], [address], [place]. tel:[phone] Referring Provider: Praveen Belcher MD C, [address], [place], [address]. tel:[phone] Family History Family Member Type Diagnosis Age At Onset No Information Payers Payer name Insurance type Covered green party ID Authoriza tion(s) Medicare [facility] [id number] [id number] Social History Type Description Quantity Date Captured Comments Sex Male Smoking Status No Information Chief Complaint And Reason For Visit No Information Reason For Referral Reason For Referral No Information History Of Present Illness Encounter Date Complaint History Of Prese nt Illness No Information Functional Status Date Functional Assessmen t No Information Instructions Date Instruction Additional Infor mation No Information Assessments Type Assessment Date No Information Patient Care Teams Name Effective Dates (start - stop) Status Members No Information
== END 2024-06-24 13:15 | disposition home or self-care (01) | DRG 871 ==
LOC: ANHED 08:06 → ANHIMU 11:35 → ANH3MED 06-24 11:51 → ANHIMU 06-26 10:51
PROVIDERS: Internal Medicine; Admitting Provider Internal Medicine; Emergency Provider Emergency Medicine; PCP Internal Medicine; Visit Provider Internal Medicine
DX: A41.9 Sepsis, unspecified organism (principal); G93.41 Metabolic encephalopathy; N39.0 Urinary tract infection, site not specified; B96.20 Unspecified Escherichia coli [E. coli] as the cause of diseases classified elsewhere; R65.20 Severe sepsis without septic shock; E83.51 Hypocalcemia; E87.6 Hypokalemia; N40.1 Benign prostatic hyperplasia with lower urinary tract symptoms; R35.0 Frequency of micturition; K21.9 Gastro-esophageal reflux disease without esophagitis; E11.9 Type 2 diabetes mellitus without complications; I10 Essential (primary) hypertension; E53.8 Deficiency of other specified B group vitamins; E78.2 Mixed hyperlipidemia; I65.29 Occlusion and stenosis of unspecified carotid artery; K44.9 Diaphragmatic hernia without obstruction or gangrene; D64.9 Anemia, unspecified; F03.90 Unspecified dementia, unspecified severity, without behavioral disturbance, psychotic disturbance, mood disturbance, and anxiety; Z86.73 Personal history of transient ischemic attack (TIA), and cerebral infarction without residual deficits; Z96.653 Presence of artificial knee joint, bilateral; Z85.828 Personal history of other malignant neoplasm of skin; Z96.1 Presence of intraocular lens; Z98.42 Cataract extraction status, left eye; Z98.41 Cataract extraction status, right eye; Z79.82 Long term (current) use of aspirin; Z79.84 Long term (current) use of oral hypoglycemic drugs
CPT/HCPCS: 36415; 70450; 74176; 80048; 80053; 81001; 82306; 82310; 82330; 82948; 83735; 83970; 84100; 84443; 85025; 85610; 85730; 87040; 87086; 87186; 87637; 93005; 96361; 96366; 96367; 96372; 96374; 96375; 97161; 97165; 99285; A9270; G0378; J0612; J0613; J0696; J2060; J2359; J3475; J3480; J7030

== ENCOUNTER 2024-12-18 13:33 | Outpatient (CLI) | payer OTHER, SELFPAY ==
--- NOTE | ~2024-12-18 | XR_ITS ---
CHEST RADIOGRAPH, PA AND LATERAL CLINICAL HISTORY: R06.00 - Dyspnea, unspecified . COMPARISON: 02/05/2022 TECHNIQUE: PA and lateral views of the chest. FINDINGS Large hiatal hernia is present. The remainder of the cardiomediastinal silhouette is otherwise unremarkable. The lungs are clear. IMPRESSION: No focal infiltrate or effusion. Reviewed, dictated and finalized at location A.
--- NOTE | 2024-12-19 11:51 | WPDPFTINT ---
PFT Procedure Performed PFT Procedure Performed Spirometry with Pre/Post Bronchodilator Plethysmography (Lung Vol) Diffusing Cap (DLCO) Flow Vol Loop PFT Interpretation This is a pulmonary function test with pre and post-bronchodilator spirometry, plethysmography and diffusing capacity. The test was performed and results interpreted in accordance with the 2019 and 2005 ATS/ERS Task Force guidelines respectively using the Global Lung Function Initiative-2012 reference equations. Patient demonstrated good effort and cooperation. Reproducibility criteria were met. The quality of the pre bronchodilator spirometry maneuver was Grade A and post bronchodilator spirometry maneuver was Grade A. Findings: Spirometry: The contour the inspiratory and expiratory flow tracing are normal. The pre bronchodilator FVC is 3.06 L, 83% predicted. The pre bronchodilator FEV1 is 2.30 L, 86% predicted. The pre bronchodilator FEV1: FVC ratio is 75%. The post bronchodilator FVC is 3.54 L, representing a 16% increase. The post bronchodilator FEV1 is 2.60 L, representing a 13% increase. The post bronchodilator FEV1: FVC ratio 74%. Plethysmography: The total lung capacity is 6.94 L, 98% predicted. The functional residual capacity is 3.72 L, 95% predicted. The residual volume is 3.32 L, 118% predicted. Diffusing capacity: The diffusing capacity unadjusted for hemoglobin and carboxyhemoglobin is 14.3, 64% predicted. The diffusing capacity adjusted for alveolar volume is 2.48, 73% predicted. Impression: The spirometry is normal without evidence of an obstructive abnormality. There is significant improvement after inhaling a single dose of albuterol. The lung volumes are normal. The diffusing capacity is normal. There are no prior studies for comparison
== END 2024-12-18 13:34 | disposition home or self-care (01) ==
PROVIDERS: PCP Internal Medicine; Visit Provider Internal Medicine
DX: R06.00 Dyspnea, unspecified (principal)
CPT/HCPCS: 71046; 94060; 94726; 94729